=== PATIENT | male | born 1955 | race Caucasian/White ===

== ENCOUNTER → 2020-06-03 10:45 | Outpatient (BNV) | payer MEDICARE, MEDICAID, SELFPAY | PROVIDERS: PCP Internal Medicine; Visit Provider Internal Medicine | DX: D50.9 Iron deficiency anemia, unspecified (principal) | CPT/HCPCS: 99213; G2211 ==

== ENCOUNTER 2020-08-25 09:05 | Outpatient (REF) | payer MEDICARE, MEDICAID, SELFPAY ==
[2020-08-25 10:16] LABS: MANUAL DIFF FLAG NO
[2020-08-25 10:47] LABS: Basophils Absolute Auto 0.1 X10*3/uL (0.0-0.2); Basophils Percent Auto 0.6 % (0-2); Eosinophils Absolute Auto 0.6 X10*3/uL (0.0-0.4); Eosinophils Percent Auto 5.4 % (0-4); Hematocrit 38.4 % (42-52); Hemoglobin 12.7 g/dl (14.0-18.0); Imm Gran Abs Auto 0.06 X10*3/uL (0.00-0.03); Imm Gran Pct Auto 0.6 % (0.0-0.4); Lymphocytes Absolute Auto 3.7 X10*3/uL (1.2-4.9); Lymphocytes Percent Auto 34.3 % (20-40); Mean Corpuscular HGB Conc 33.1 g/dl (31.0-36.0); Mean Corpuscular Hemoglobin 30.5 pg (27.0-33.0); Mean Corpuscular Volume 92.3 fL (80-98); Mean Platelet Volume 9.5 fL (9.4-12.4); Monocytes Absolute Auto 0.8 X10*3/uL (0.1-1.2); Monocytes Percent Auto 7.2 % (2-11); Neutrophils Absolute Auto 5.7 X10*3/uL (2.0-8.3); Neutrophils Percent Auto 51.9 % (45-73); Platelet Count 295 X10*3/uL (160-400); Red Blood Count 4.16 X10*6/uL (4.60-5.80); Red Cell Distribution Width 12.6 % (11.0-16.0); White Blood Count 10.9 X10*3/uL (4.8-10.8)
[2020-08-25 11:08] LABS: Alanine Aminotransferase 21 U/L (0-40); Albumin Level 4.4 g/dL (3.5-5.0); Alkaline Phosphatase 94 U/L (39-117); Anion Gap 13 (12-20); Aspartate Amino Transferase 13 U/L (5-37); Bilirubin Total 0.6 mg/dL (0.0-1.0); Blood Urea Nitrogen 12 mg/dL (9-16); Calcium 8.9 mg/dL (8.4-10.2); Carbon Dioxide 28 mmol/L (22-29); Chloride 102 mmol/L (96-108); Cholesterol 247 mg/dL; Estimated Glomerular Filt Rate > 60; Glucose Fasting 123 mg/dL (60-99); HDL Cholesterol 31 mg/dL; LDL Cholesterol Calculated 149 mg/dl; Potassium 4.3 mmol/L (3.3-5.1); Sodium 139 mmol/L (135-145); Total Protein 6.7 g/dL (6.5-8.0); Triglycerides 335 mg/dL
== END 2020-08-25 09:06 | disposition home or self-care (01) ==
LOC: HO.LAB 09:05
PROVIDERS: PCP Internal Medicine; Visit Provider Internal Medicine
DX: E78.00 Pure hypercholesterolemia, unspecified (principal); E66.9 Obesity, unspecified
CPT/HCPCS: 36415; 80053; 80061; 85025

== ENCOUNTER 2020-09-04 10:41 | Outpatient (REF) | payer MEDICARE, MEDICAID, SELFPAY | END 2020-09-04 10:42 | disposition home or self-care (01) | LOC: HO.LAB 10:41 | PROVIDERS: Visit Provider Internal Medicine | DX: Z20.822 Contact with and (suspected) exposure to COVID-19 (principal) | CPT/HCPCS: 36415; C9803; U0003; U0005 ==

== ENCOUNTER 2020-09-18 10:03 | Outpatient (REF) | payer MEDICARE, MEDICAID, SELFPAY | END 2020-09-18 10:04 | disposition home or self-care (01) | LOC: HO.LAB 10:03 | PROVIDERS: Visit Provider Internal Medicine | DX: Z20.822 Contact with and (suspected) exposure to COVID-19 (principal) | CPT/HCPCS: 36415; C9803; U0003; U0005 ==

== ENCOUNTER 2021-09-08 09:08 | Outpatient (REF) | payer MEDICARE, MEDICAID, OTHER, SELFPAY ==
[2021-09-08 09:29] LABS: MANUAL DIFF FLAG NO
[2021-09-08 10:12] LABS: Basophils Absolute Auto 0.1 X10*3/uL (0.0-0.2); Basophils Percent Auto 0.5 % (0-2); Eosinophils Absolute Auto 0.5 X10*3/uL (0.0-0.4); Hematocrit 38.7 % (42.0-52.0); Hemoglobin 12.5 g/dl (14.0-18.0); Imm Gran Abs Auto 0.07 X10*3/uL (0.00-0.03); Imm Gran Pct Auto 0.6 % (0.0-0.4); Lymphocytes Absolute Auto 4.1 X10*3/uL (1.2-4.9); Lymphocytes Percent Auto 34.5 % (20-40); Mean Corpuscular HGB Conc 32.3 g/dl (31.0-36.0); Mean Corpuscular Hemoglobin 30.2 pg (27.0-33.0); Mean Corpuscular Volume 93.5 fL (80.0-98.0); Mean Platelet Volume 9.4 fL (9.4-12.4); Monocytes Absolute Auto 0.9 X10*3/uL (0.1-1.2); Monocytes Percent Auto 7.3 % (2-11); Neutrophils Absolute Auto 6.3 x10*3/uL (2.0-8.3); Neutrophils Percent Auto 53.1 % (45-73); Platelet Count 293 X10*3/uL (160-400); Red Blood Count 4.14 X10*6/uL (4.60-5.80); Red Cell Distribution Width 12.9 % (11.0-16.0); White Blood Count 11.9 X10*3/uL (4.8-10.8)
[2021-09-08 10:41] LABS: Alanine Aminotransferase 17 U/L (0-40); Albumin Level 4.1 g/dL (3.5-5.0); Alkaline Phosphatase 92 U/L (39-117); Anion Gap 14 (12-20); Aspartate Amino Transferase 12 U/L (5-37); Bilirubin Total 0.4 mg/dL (0.0-1.0); Blood Urea Nitrogen 12 mg/dL (9-16); Calcium 9.2 mg/dL (8.4-10.2); Carbon Dioxide 27 mmol/L (22-29); Chloride 103 mmol/L (96-108); Estimated Glomerular Filt Rate > 60; Glucose Random 126 mg/dL (60-115); Potassium 4.6 mmol/L (3.3-5.1); Sodium 139 mmol/L (135-145); Total Protein 6.6 g/dL (6.5-8.0)
== END 2021-09-08 09:09 | disposition home or self-care (01) ==
LOC: HO.LAB 09:08
PROVIDERS: PCP Internal Medicine; Visit Provider Internal Medicine
DX: D64.9 Anemia, unspecified (principal)
CPT/HCPCS: 36415; 80053; 85025

== ENCOUNTER 2021-09-24 09:10 | Outpatient (REF) | payer MEDICARE, MEDICAID, SELFPAY ==
--- NOTE | ~2021-09-24 | XR_ITS ---
EXAMINATION: XR KNEE, RIGHT CLINICAL INFORMATION: Pain. COMPARISON: Prior radiographs, most recently 07/12/2016. TECHNIQUE: AP and lateral views of the right knee. FINDINGS: Prosthetic components of the right total knee arthroplasty are appropriately aligned without periprosthetic fracture or lucency. No component migration. No joint effusion. XR/XR knee RT 2V IMPRESSION: Appropriate alignment of the right total knee arthroplasty without evidence of complications. EXAMINATION: XR KNEE, LEFT CLINICAL INFORMATION: Pain. COMPARISON: Prior radiographs, most recently 07/12/2016. TECHNIQUE: AP and lateral views of the left knee. FINDINGS: Prosthetic components of the left total knee arthroplasty are appropriately aligned without periprosthetic fracture or abnormal lucency. No component migration. No joint effusion. IMPRESSION: Appropriate alignment of the left total knee arthroplasty without evidence of complications.
--- NOTE | ~2021-09-24 | XR_ITS ---
EXAMINATION: XR KNEE, RIGHT CLINICAL INFORMATION: Pain. COMPARISON: Prior radiographs, most recently 07/12/2016. TECHNIQUE: AP and lateral views of the right knee. FINDINGS: Prosthetic components of the right total knee arthroplasty are appropriately aligned without periprosthetic fracture or lucency. No component migration. No joint effusion. XR/XR knee LT 2V IMPRESSION: Appropriate alignment of the right total knee arthroplasty without evidence of complications. EXAMINATION: XR KNEE, LEFT CLINICAL INFORMATION: Pain. COMPARISON: Prior radiographs, most recently 07/12/2016. TECHNIQUE: AP and lateral views of the left knee. FINDINGS: Prosthetic components of the left total knee arthroplasty are appropriately aligned without periprosthetic fracture or abnormal lucency. No component migration. No joint effusion. IMPRESSION: Appropriate alignment of the left total knee arthroplasty without evidence of complications.
[2021-09-24 10:50] LABS: Alanine Aminotransferase 18 U/L (0-40); Albumin Level 4.4 g/dL (3.5-5.0); Alkaline Phosphatase 105 U/L (39-117); Anion Gap 14 (12-20); Aspartate Amino Transferase 12 U/L (5-37); Bilirubin Total 0.7 mg/dL (0.0-1.0); Blood Urea Nitrogen 12 mg/dL (9-16); Calcium 9.7 mg/dL (8.4-10.2); Carbon Dioxide 28 mmol/L (22-29); Chloride 100 mmol/L (96-108); Cholesterol 253 mg/dL; Estimated Glomerular Filt Rate > 60; Glucose Fasting 127 mg/dL (60-99); HDL Cholesterol 34 mg/dL; LDL Cholesterol Calculated 172 mg/dl; Potassium 4.3 mmol/L (3.3-5.1); Sodium 138 mmol/L (135-145); Total Protein 7.3 g/dL (6.5-8.0); Triglycerides 235 mg/dL
== END 2021-09-24 09:11 | disposition home or self-care (01) ==
LOC: HO.LAB 09:10
PROVIDERS: PCP Internal Medicine; Visit Provider Internal Medicine
DX: Z00.00 Encounter for general adult medical examination without abnormal findings (principal); M25.561 Pain in right knee; M25.562 Pain in left knee; E78.5 Hyperlipidemia, unspecified
CPT/HCPCS: 36415; 73560; 80053; 80061

== ENCOUNTER 2021-10-20 12:51 | Outpatient (REF) | payer MEDICARE, MEDICAID, SELFPAY ==
--- NOTE | 2021-10-20 16:25 | MHC.AU.AHA ---
Adult Audiological Evaluation Date of Visit: 10/20/21 Inside Sales Associate Used: Argentine- By Phone Reason for Appointment: Yogesh was seen for an audiological evaluation to monitor the status of his hearing loss. He reports a decrease in hearing abilities bilaterally. He states he has lost one of his hearing aids and does not wear the other device any more. Yogesh reports bilateral itchiness sensation in his ears, but did not experience any itchiness while wearing hearing devices in the past. He reports bilateral tinnitus as well. No significant changes in health history or medication history were reported. Previous Hearing Test Results: [facility] [place]- Normal hearing threshold through 500 Hz sloping to a profound sensorineural hearing loss thereafter. Ear History: Family History of Hearing Loss?: Yes: Sister Bothersome Tinnitus/Ringing/Noises in Ears: Both Ears Ear used on the phone: Right Ear History of occupational noise exposure?: Yes: Jose Medical History: Medical History: Asthma, anxiety, depression, insomnia Allergies: NKA Medication List: albuterol sulfate, escitalopram, patient reports that he takes a sleep aid but doesn't remember the name Hearing Instrument History- Right Ear: Show Host Or Hostess: [employer] Model: Playthe.net0-M Excellence EngineeringE Serial Number: [id number] Battery Size: Rechargeable Repair Warranty: 10/30/18 Loss and Damage Warranty: 10/30/18 Dispensed By: [facility] Date of Fittin08/30/2016 Hearing Instrument History- Left Ear: Show Host Or Hostess: [employer] Model: Playthe.net0-M Excellence EngineeringE Serial Number: [id number] Battery Size: Rechargeable Warranty: 10/30/18 Loss and Damage Warranty: 10/30/18 Dispensed By: [facility] Date of Fittin08/30/2016 Otoscopy: Right Ear: Unremarkable Left Ear: Unremarkable Tympanometry: Tympanometry performed due to: To assess integrity of the middle ear system Right Ear: Normal Middle Ear System (Type A) Left Ear: Normal Middle Ear System (Type A) Hearing Evaluation: Transducer(s) Used: Insert Earphones, Bone Conduction Method: Conventional Audiometry Stimuli Used: Pure Tones Right Ear: Description of Hearing: Moderate sloping to a profound sensorineural hearing loss. Left Ear: Description of Hearing: Moderate sloping to a profound sensorineural hearing loss. A 15 dB asymmetry is noted at 3000 Hz, left ear worse. Speech Recognition Threshold (SRT): Method Used: Recorded Lists Stimuli Used: Argentine Trisyllable Words Right Ear: 75 dB HL Left Ear: 75 dB HL Word Discrimination: Method: Recorded Lists Word Lists Used: Lista Bisil?bica (Argentine) Right Ear: 72% at 85 dB HL Left Ear: 72% at 85 dB HL Comparison: Compared to the most recent evaluation: Thresholds have decreased by 20-30 dB HL in the low frequencies when compared to the 2017 evaluation. Recommendations: Audiological re-evaluation in one year. Due to the degree and configuration of his hearing loss, and because patient lost a hearing aid, it is recommended that Yogesh obtains new binaural hearing devices. Additionally, new technological advances in hearing devices will better support Yogesh's hearing needs. Discussed hearing aid styles, manufacturers, and features with the patient. Patient is interested in Evan ITC rechargeable devices in the color pink. Earmold impressions were taken without incident. Medical clearance from a physician is required before fitting. Hearing Aid Fitting will be scheduled when all materials arrive. Diagnosis: Primary Diagnosis: H90.3 Bilateral Sensorineural Hearing Loss Services Performed: Comprehensive Audiological Evaluation (CPT 27593) Tympanometry (CPT 70567) Signature: Student/Clinical Fellow: Yes: Sridevi Yuen B.A., [facility] Senior Environmental Practice Leader I have reviewed/agreed with student/fellow documentation: Yes Provider: Leonard Deng, [facility]
--- NOTE | 2021-10-20 16:26 | MHC.AU.HAS ---
Hearing Aid Evaluation Date of Visit: 10/20/21 Blow Pit Helper Used: Mohawk- By Phone Historical Information: Description of Hearing: Moderate sloping to profound sensorineural hearing loss bilaterally. Current personal amplification information, if applicable: Phonak Bolero V50-M BTEs- LOST ONE Summary: Due to the degree and configuration of Yogesh's hearing loss, along with the new and advanced hearing technology available now, it was recommended Yogesh pursues new bilateral hearing devices. Additionally, Yogesh had lost one of his previous devices, which are now out of warranty. Discussed the different hearing aid styles, manufacturers, and features available now. Yogesh stated he wanted an in-the-ear device that had rechargeable features. Earmold impressions were taken without incident. [employer] AI 1600 ITC-R hearing aids in the color pink were agreed upon and will be ordered pending medical clearance. Hearing Aid Prescription: Based on the individual?s shared listening needs, communication environments, dexterity, desire for connectivity, and personal preferences, the following prescription for amplification has been made: Right ear: Type Rolling Machine Operator: [email or web address] Model: Bolero V50-M BTE Battery Size: Rechargeable Color: [place] Left ear: Left ear prescription to be same as Right Hearing Aid above: Type Rolling Machine Operator: Evan Model: Bolero V50-M BTE Battery Size: Rechargeable Color: pink Plan of Care: Earmold Impressions Taken and in hold drawer. Medical Clearance to be requested from PCP/ENT. Hearing aids will be ordered once MD clearance is received. Hearing Instrument Fitting to be scheduled when materials arrive. Primary Diagnosis: H90.3 Bilateral Sensorineural Hearing Loss Signature: Student/Clinical Fellow: Yes: Sridevi Yuen B.A., [facility] Nurse I have reviewed/agreed with student/fellow documentation: Yes Provider: Leonard Deng, [facility]
--- NOTE | 2021-10-21 09:27 | MHC.AU.MED ---
Medical Clearance for Hearing Instrumentation Date: 10/21/21 Patient Name: Owen Singer Date of : 1955 Referring Provider: Yulia Montoya MD We have seen your patient on 10/20/21 and have determined that they are a candidate for amplification (See accompanying report). Specifically, they would benefit from: Hearing aid use in both ears There is a statute that addresses Medical Evaluation Requirements prior to fitting a patient with a hearing aid. According to [place] statute 265 CMR:6.03(1), (a) General. Except as provided in 265 CMR 6.03(1)(b), a hearing therapist shall not sell a hearing aid unless the prospective user has presented to the hearing therapist a written statement signed by a licensed physician that states that the patient's hearing loss has been medically evaluated and the patient may be considered a candidate for a hearing aid. The medical evaluation must have taken place within the preceding six months. Please note: Due to the [place] Statute referenced above, we cannot accept a signature other than that of a licensed physician. DELIVERY TRUCK DRIVER HEAVY and PA signatures cannot be accepted. I am in agreement with the above recommendation. There is no medical contraindication for hearing instrumentation. Physician Signature Date Physician Name (Printed)
== END 2021-10-20 12:52 | disposition home or self-care (01) ==
LOC: HO.SH 12:51
PROVIDERS: Visit Provider Internal Medicine
DX: Z01.118 Encounter for examination of ears and hearing with other abnormal findings (principal); Z46.1 Encounter for fitting and adjustment of hearing aid; H90.3 Sensorineural hearing loss, bilateral
CPT/HCPCS: 92557; 92567; 92591; V5275

== ENCOUNTER 2021-11-18 10:21 | Outpatient (REF) | payer MEDICARE, MEDICAID, SELFPAY | END 2021-11-18 10:22 | disposition home or self-care (01) | LOC: HO.HAP 10:21 | PROVIDERS: Visit Provider Internal Medicine | DX: Z46.1 Encounter for fitting and adjustment of hearing aid (principal); H90.3 Sensorineural hearing loss, bilateral | CPT/HCPCS: V5011; V5020; V5160; V5260 ==

== ENCOUNTER 2021-12-08 11:26 | Outpatient (REF) | payer MEDICARE, MEDICAID, SELFPAY ==
--- NOTE | 2021-12-08 12:57 | MHC.AU.HFU ---
Hearing Instrument Follow-Up- Binaural Date of Visit: 12/08/21 Career Coach Used: Bengali- By Phone Right Ear: Javascript Developer: [email or web address] Model: Evolv AI 1600 ITC-R Serial Number: [id number] Repair Warranty: 11/29/2024 Loss and Damage Warranty: 11/29/2024 Battery Size: Rechargeable Color: Fossil Type of Wax Guard: Hear Clear Dispensed By: [facility] Date of Fittin11/18/21 Left Ear: Javascript Developer: Evan Model: Evolv AI 1600 ITC-R Serial Number: [id number] Repair Warranty: 11/29/2024 Loss and Damage Warranty: 11/29/2024 Battery Size: Rechargeable Color: pink Type of Wax Guard: Hear Clear Dispensed By: [facility] Date of Fittin11/18/21 Follow-Up Summary: Hearing aid follow-up: Patient reports that he has not been happy with the new hearing aids and doesn't like the sound quality. He feels he preferred his previous BTE hearing aids and would like to go back to that. Going to order a pair of Simbionixv AI 1600 ANJALI-R aids in the color Bronze with custom earmolds using impressions on file and size 2 receivers. Current hearing aids and director utilization management returned for credit today. Recommendations: Recommendations: Patient will be contacted when materials have arrived. Diagnosis Code(s): Primary Diagnosis: H90.3 Bilateral Sensorineural Hearing Loss Signature: Provider: Leonard Deng, CCC-A
== END 2021-12-08 11:27 | disposition home or self-care (01) ==
LOC: HO.HAP 11:26
PROVIDERS: Visit Provider Internal Medicine
DX: Z13.89 Encounter for screening for other disorder (principal)

== ENCOUNTER 2021-12-25 12:18 | Outpatient (REF) | payer MEDICARE, MEDICAID, SELFPAY ==
--- NOTE | 2021-12-30 09:17 | MHC.AU.HFA ---
Hearing Instrument Fitting- Adult- Binaural Date of Visit: 12/25/21 Hearing Instruments Dispensed: Right Ear: Mortgage Clerk: [employer] Model: mobilePeoplev AI 1600 ANJALI-R Serial Number: [id number] Repair Warranty: 03/16/2025 Loss and Damage Warranty: 03/16/2025 Battery Size: Rechargeable Color: Bronze Type of Mold: Absolute Power #[id number] Warranty 01/14/2024 Type of Wax Guard: Hear Clear Left Ear: Mortgage Clerk: [employer] Model: mobilePeoplev AI 1600 ANJALI-R Serial Number: [id number] Repair Warranty: 03/16/2025 Loss and Damage Warranty: 03/16/2025 Battery Size: Rechargeable Color: Bronze Type of Mold: Absolute Power #[id number] Warranty 01/14/2024 Type of Wax Guard: Hear Clear Summary of Fitting: Patient previously returned the ITC style instruments. He was fit with with ANJALI style instruments. Feedback canceller run. Verifit performed and levels adjusted to better reach targets. Patient felt they were a little too loud- lowered 2 steps. Patient was pleased with the sound and fit of the instruments. Hearing aid care and maintenance were discussed and practiced. He does not want the hearing aids paired to his phone at this time. Recommendations: Patient will call for follow-up if needed. Diagnosis Code(s): Primary Diagnosis: H90.3 Bilateral Sensorineural Hearing Loss Signature: Provider: Leonard Cavazos, CCC-A
== END 2021-12-25 12:19 | disposition home or self-care (01) ==
LOC: HO.HAP 12:18
PROVIDERS: Visit Provider Internal Medicine
DX: Z46.1 Encounter for fitting and adjustment of hearing aid (principal); H90.3 Sensorineural hearing loss, bilateral
CPT/HCPCS: V5264

== ENCOUNTER 2022-03-19 06:10 | Day surgery (SDC) | payer MEDICARE, MEDICAID, SELFPAY ==
[2022-03-16 13:32] VITALS: BMI 34.5
--- NOTE | 2022-03-18 12:52 | P.CONAN_ITS ---
Documented by User: Mamie Tee NP 03/18/22 12:53 HPI - Anesthesia Eval Consult details Narrative: 66yo M for Colonoscopy PMFSH Active Problems Active Problems: All Active Problems (Updated 12/24/21 @ 09:52 by Yulia Montoya MD) Anemia (Chronic) Conjunctivitis (Acute) Mixed hyperlipidemia (Acute) Moderate persistent asthma (Acute) ARELIS (generalized anxiety disorder) (Acute) Knee pain (Acute) Mild persistent asthma, uncomplicated (Acute) Mild recurrent major depression (Acute) Hearing loss (Acute) Physical exam (Acute) Obese (Acute) Impaired glucose tolerance (Acute) Insomnia (Acute) Past Medical History Medical History ARELIS (generalized anxiety disorder) Hearing loss Impaired glucose tolerance Insomnia Knee pain Mild persistent asthma, uncomplicated Mild recurrent major depression Obese Physical exam Pure hypercholesterolemia Family History Family History Father Pancreatic cancer Mother Chronic mental illness Diabetes Hypertension Stroke Sister Cancer Family/Other Chronic mental illness Surgical History Surgical History H/O colonoscopy History of knee replacement procedure of left knee History of knee replacement procedure of right knee Social History Social History Household Members: Children Housing: [facility] Are you a primary child care to a significant other at home: No Do you presently have visiting nurse or other home services: No Alcohol intake: former Patient Tobacco Use Status: Current everyday Tobacco user Tobacco use type: Cigarette Cigarette Packs Per Day: 1 Cigarettes Per Day: 20 e-Cigarette/Vaping Use: Never Used Second Hand Smoke Exposure: No Are you DNR?: No Advance Directives: No Advance Directives Information Provided: Yes Recently lost weight without trying: No Nutrition Risks: No Nutritional Risk service: No Current occupational status: disabled Cognitive needs: No Hearing needs: No Vision needs: No Meds Allergies Allergy/AdvReac Type Severity Reaction Status Date / Time No Known Allergies Allergy Verified 12/24/21 09:49 [No Known Allergies*] Exam Exam Date and Time: March 18, 2022 1252 Height,Weight and Vital Signs: Height 5 ft 7.5 in Weight 101.605 kg Assessment and Plan Assessment Anesthesia Assessment: Chart Reviewed Documented by User: Angela Gallagher MD 03/19/22 07:38 PMFSH Past Medical History Medical History ARELIS (generalized anxiety disorder) Hearing loss Impaired glucose tolerance Insomnia Knee pain Mild persistent asthma, uncomplicated Mild recurrent major depression Obese Physical exam Pure hypercholesterolemia Family History Family History Father Pancreatic cancer Mother Chronic mental illness Diabetes Hypertension Stroke Sister Cancer Family/Other Chronic mental illness Surgical History Surgical History H/O colonoscopy History of knee replacement procedure of left knee History of knee replacement procedure of right knee History of Problems with Anesthesia: No Social History Social History Household Members: Children [facility] Are you a primary child care to a significant other at home: No Do you presently have visiting nurse or other home services: No Alcohol intake: former Patient Tobacco Use Status: Current everyday Tobacco user Tobacco use type: Cigarette Cigarette Packs Per Day: 1 Cigarettes Per Day: 20 e-Cigarette/Vaping Use: Never Used Second Hand Smoke Exposure: No Are you DNR?: No Advance Directives: No Advance Directives Information Provided: Yes Recently lost weight without trying: No Nutrition Risks: No Nutritional Risk service: No Current occupational status: disabled Cognitive needs: No Hearing needs: No Vision needs: No Meds Allergies Allergy/AdvReac Type Severity Reaction Status Date / Time No Known Allergies Allergy Verified 12/24/21 09:49 [No Known Allergies*] Exam Airway Mallampati Class: III (Edentulous) TM Dist: >3cm Neck ROM: Full Denture: Upper and Lower Loose/Missing/Broken Teeth: Yes, Upper and Lower Heart: RRR Lungs: CTA Assessment and Plan Assessment Anesthesia Assessment: Anesthesia Plan Discussed Final Anesthetic Review History of Problems with Anesthesia: No NPO: Yes ASA Class: II Final Preanesthetic Review: Meds/Allgs Chart Reviewed, Consent Obtained/Reviewed and Anes Risks/Benef Reviewed Patient Risk: Low Procedure Risk: Low Anesthetic Plan Anesthetic Plan: MAC: Disposition: Standard PACU
[2022-03-19 06:23] VITALS: BP 156/74; PULSE 83; RESP 18; TEMP 36.3; O2SAT 95
[2022-03-19] MEDS: Lactated Ringers 1,000 ML 100 ML IVCONT (06:40)
[2022-03-19] MEDS: Albuterol Sulfate (0.083%) 2.5 MG/3 ML VIAL.NEB INHALE (07:38)
[2022-03-19 07:41] VITALS: PULSE 88; RESP 18; O2SAT 99
[2022-03-19 08:33] VITALS: BP 92/42; PULSE 84; RESP 20; TEMP 36.5; O2SAT 98
--- NOTE | 2022-03-19 08:35 | P.BOP_ITS ---
Brief Operative Note Date of Service: 03/19/22 Pre-op diagnosis: Screening Post-op diagnosis: other (Colon polyp) Procedure: Colonoscopy to the cecum with cold snare polypectomy at 40cm(specimen not recovered) Surgeon: Joaquin Day Anesthesia: MAC Was an Pearl Peller used for this Procedure?: No Estimated blood loss (mL): 2.0 Pathology: none sent Condition: stable Disposition: PACU
[2022-03-19 08:48] VITALS: BP 92/42; PULSE 101; RESP 20; O2SAT 95
[2022-03-19 08:53] VITALS: BP 110/66; PULSE 90; RESP 20; TEMP 36.5; O2SAT 96
--- NOTE | 2022-03-19 21:49 | OP_ITS ---
SURGEON: Joaquin Day MD INDICATIONS: The patient presents for followup of personal history of tubular adenoma of the colon and colorectal cancer screening. Full consent has been obtained from him for this, including risks of bleeding and perforation. PREOPERATIVE DIAGNOSIS: Colorectal cancer screening and personal history of tubular adenoma of the colon. POSTOPERATIVE DIAGNOSIS: Colorectal cancer screening and personal history of tubular adenoma of the colon, colon polyp, diverticulosis, internal hemorrhoids, limited colon prep. PROCEDURE PERFORMED: Colonoscopy to the cecum with cold snare polypectomy x1. ESTIMATED BLOOD LOSS: COMPLICATIONS: ANESTHESIA: Monitored anesthesia care. ASSISTANTS: SPECIMENS: DESCRIPTION OF PROCEDURE: The patient was placed in the left lateral decubitus position. The digital rectal exam revealed no abnormalities. The [employer] video pediatric colonoscope was entered into the rectum and advanced easily to the cecum. Once in the cecum, I did identify a cecal pouch with appendiceal orifice and a normal-appearing ileocecal valve. The great majority of the cecum was well visualized and appeared normal. Although there were some areas that had stool that could not be completely removed. However, the majority of the cecum was well visualized and appeared normal. The ileocecal valve appeared normal the scope was slowly withdrawn assessing all mucosal surfaces carefully. Preparation for the most part was good, but there were some areas of liquid and semi-solid stool, particularly in the left colon. There was no sign of any colitis nor angiodysplasia. The only polyp I visualized was approximately 5 or 6 mm in size at 40 cm and was removed by cold snare polypectomy, but not recovered. The polypectomy site appeared clean, without any sign of residual polyp nor significant bleeding. In the rectum, scope was retroflexed visualizing internal hemorrhoids, but no other pathology. The scope was straightened and withdrawn from the patient. He tolerated the procedure well and was returned to the recovery area in stable condition. IMPRESSION: 1. Colon polyp. 2. Diverticulosis. 3. Internal hemorrhoids. PLAN: Given the somewhat limited prep, I would recommend a repeat colonoscopy in 3 years for surveillance. He was advised not to use any aspirin or NSAIDs for 1 week. He will otherwise see me on a p.r.n. basis. This has been discussed with his daughter, Lita. MD RAÚL Castro/FELICIANOL / [id number]
== END 2022-03-19 09:45 | disposition home or self-care (01) ==
PROVIDERS: PCP Internal Medicine; Visit Provider Internal Medicine
PROC: 0DJD8ZZ Inspection of Lower Intestinal Tract, Via Natural or Artificial Opening Endoscopic (ICD-10-PCS; CPT 45378; principal; 2022-03-19 07:30)
DX: Z12.11 Encounter for screening for malignant neoplasm of colon (principal); Z86.010 Personal history of colon polyps; K63.5 Polyp of colon; K57.30 Diverticulosis of large intestine without perforation or abscess without bleeding; K64.8 Other hemorrhoids; J45.30 Mild persistent asthma, uncomplicated; F41.1 Generalized anxiety disorder; Z79.899 Other long term (current) drug therapy; F17.210 Nicotine dependence, cigarettes, uncomplicated
CPT/HCPCS: 45385

== ENCOUNTER 2022-05-04 08:08 | Outpatient (REF) | payer MEDICARE, MEDICAID, SELFPAY ==
[2022-05-04 10:10] LABS: Alanine Aminotransferase 15 U/L (0-40); Albumin Level 4.4 g/dL (3.5-5.0); Alkaline Phosphatase 121 U/L (39-117); Anion Gap 17 (12-20); Aspartate Amino Transferase 12 U/L (5-37); Bilirubin Total 0.6 mg/dL (0.0-1.0); Blood Urea Nitrogen 10 mg/dL (9-16); Calcium 9.1 mg/dL (8.4-10.2); Carbon Dioxide 28 mmol/L (22-29); Chloride 101 mmol/L (96-108); Cholesterol 152 mg/dL; Estimated Glomerular Filt Rate > 60; Glucose Fasting 136 mg/dL (60-99); HDL Cholesterol 32 mg/dL; LDL Cholesterol Calculated 91 mg/dl; Potassium 4.6 mmol/L (3.3-5.1); Sodium 141 mmol/L (135-145); Total Protein 6.9 g/dL (6.5-8.0); Triglycerides 147 mg/dL
== END 2022-05-04 08:09 | disposition home or self-care (01) ==
LOC: HO.LAB 08:08
PROVIDERS: PCP Internal Medicine; Visit Provider Internal Medicine
DX: E78.2 Mixed hyperlipidemia (principal)
CPT/HCPCS: 36415; 80053; 80061

== ENCOUNTER 2022-05-20 18:33 | Emergency (ER) | payer MEDICARE, MEDICAID, SELFPAY ==
--- NOTE | ~2022-05-20 | XR_ITS ---
EXAMINATION: LEFT HAND AND WRIST CLINICAL INFORMATION: Fall with pain and swelling third/fourth digits COMPARISON: None TECHNIQUE: 4 views of the hand and wrist FINDINGS: There is a spiral fracture through the fourth metacarpal. No joint space involvement appears to be present. There is minimal displacement or angulation. Mild soft tissue swelling around the PIP joints of the third and fourth digits without fracture or arthritic change. XR/XR hand wrist LT IMPRESSION: Spiral fracture fourth metacarpal without joint space involvement.
[2022-05-20 18:36] VITALS: BP 152/89; PULSE 97; RESP 18; TEMP 36.7; O2SAT 99; BMI 32.6
--- OUTSIDE RECORDS SUMMARY | 2022-05-20 19:03 | XMS_ITS ---
:1955 Author Organization [facility] Address [address] [place] [address] Care Team Providers Name Role Phone Joaquin Day Unavailable Unavailable PROBLEMS Type Condition ICD9-CM Code [id number] Onset Condition SNOMED Code Code Dates Status Problem Encounter for Z12.11 Active 501139 004 screening for malignant neoplasm of colon Problem Diverticulosis of K57.30 Active 73 1001217 colon Problem Encounter for other Z01.818 Active [id number] preprocedural examination Problem History of Z86.010 Active [id number] adenomatous polyp of colon ALLERGIES No Known Allergies ENCOUNTERS Encounter Location Date Diagnosis [facility] [address] [place] [address] Feb, Colon polyp K63 .5 ; ANA Lucero [id number] Diverticul osis of colon K57.30 and Inter nal hemorrhoids K64. [address] [place] [address] Jan, [facility] [address] [place] [address] [place] [address] Dec, [facility] [address] [place] [address] Dec, Encounte r for screening for [facility] [address] ANA Lucero malignant neoplasm of colon [id number] Z12.11 ; History of adenomatous poly p of colon Z86.010 and Enco unter for other preprocedu ral examination Z01. 818 [facility] [address] [place] [address] Dec, ANA Lucero [id number] [address] Nov, [facility] [address] [place] [address] Nov, Abnormal CT scan, colon [facility] [address] ANA Lucero 793.4 [phone] IMMUNIZATIONS No Known Immunizations SOCIAL HISTORY Never Assessed REASON FOR REFERRAL FUNCTIONAL STATUS PLAN OF CARE Activity Details Future/Pending Procedure COLONOSCOPY 20220119 Future/Pending Procedure COLONOSCOPY 20141219 VITAL SIGNS Weight 224 lbs 2022-01-19 Weight 214 lbs 2014-12-19 Height 67.5 in 2022-01-19 Height 67.5 in 2014-12-19 BMI 34.56 kg/m2 2022-01-19 BMI 33.02 kg/m2 2014-12-19 Temperature 97.7 degrees Fahrenheit 2022-01-19 Blood pressure systolic 000 mm Hg 2022-01-19 Blood pressure diastolic 00 mm Hg 2022-01-19 MEDICATIONS Medication Instructions Dosage Frequency Start End Duration Statu s Date Date MiraLax (colon Orally begin at 1 238Gm Dec, 1 day A ctive prep) 17 5:00 p.m. the bottle mixed 2 GM/SCOOP day before the with procedure Gatorade or Crystal Light Dulcolax (colon Orally two take at 3:00 Dec, 1 day Active prep) 5 MG tablets twice a p.m and 2021 day for one day 7:00p.m. Atorvastatin 90 Active Calcium 20 MG Escitalopram 90 Active Oxalate 5 MG Albuterol 50 Active Sulfate HFA 108 (90 Base) MCG/ACT PROCEDURES Procedure Date Ordered Result Body Site [facility]IC[facility] January 19, 2022 LESION REMOVAL COLONOSCOPY Mar 19, 2022 RESULTS Name Result Date Reference Range GI BIOPSY 2014-12-26 G.I. BIOPSY REASON FOR VISIT hx polyps,screening, 01-19-2022 office charge, needs script for prep, recall screening, Patient presents today for a screening colon, abnormal CT scan, send over colyte prep, ABNORMAL CT SCAN Insurance Providers [facility] Health Member Patient Patient Patient Patient Patient Subscriber Subscriber Subscriber Group Insurance Plan Plan Plan Plan ID Relationship Address Phone Name Date of ID Name Date of No Type Insurance Insurance Insurance Coverage to Subscriber Address Phone Name Dates MEDICAID [phone] MEDICAID self IVA [id number] OF [facility] [id number] OF [facility] [address] [facility] [place] [id number] MEDICARE [address] MEDICARE self IVA [id number] OF [place] [id number] [address] OF [facility] [place] [id number] [employer] [phone] [employer] self IVA [id number] Health [id number] [facility] Plan [place]RU[place]AT [id number] [employer] [phone] [employer] self IVA [id number] Health [id number] [facility] access hospital [place] [id number]
--- NOTE | 2022-05-20 19:40 | ED.EXTPRO ---
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 He states that he was walking down the stairs, his fingers got caught on the bracket that secures the railing to the wall while he continued walking down. He has swelling to the left 3rd and 4th digit, and has subjective pain to the wrist without deformity. Denies any numbness or tingling. Decreased flexion of the digits is present. Related Data Previous Rx's Medication Instructions Recorded albuterol sulfate 90 mcg/actuation 1 puff PO Q6H PRN Wheezing 30 days 05/10/22 aerosol inhaler #6.7 grams atorvastatin 40 mg tablet 40 mg PO BEDTIME 90 days #90 tabs 05/10/22 metformin 500 mg tablet 500 mg PO DAILY 90 days #90 tabs 05/10/22 blood sugar diagnostic (FreeStyle #50 ea 05/12/22 Lite Strips) lancets 28 gauge (FreeStyle #100 ea 05/12/22 Lancets) blood-glucose meter (FreeStyle #1 ea 05/14/22 Lite Meter kit) Allergies Allergy/AdvReac Type Severity Reaction Status Date / Time No Known Allergies Allergy Verified 05/10/22 08:33 [No Known Allergies*] Review of Systems Review of Systems: Musculoskeletal: Positive hand and wrist pain as noted in HPI Yes all other systems are reviewed and are negative PMFSH Past Medical History Attestation statement: The following information was validated with the patient. Source: old records reviewed Medical History ARELIS (generalized anxiety disorder) Hearing loss Insomnia Knee pain Mild persistent asthma, uncomplicated Mild recurrent major depression Obese Physical exam Pure hypercholesterolemia Surgical History H/O colonoscopy History of knee replacement procedure of left knee History of knee replacement procedure of right knee Family History Family History Father Pancreatic cancer Mother Chronic mental illness Diabetes Hypertension Stroke Sister Cancer Family/Other Chronic mental illness Social History Social History Household Members: Children [facility] Are you a primary rehab care assistant to a significant other at home: No Do you presently have visiting nurse or other home services: No Alcohol intake: former Patient Tobacco Use Status: Current everyday Tobacco user Tobacco use type: Cigarette Cigarette Packs Per Day: 1 Cigarettes Per Day: 20 Smoked in Last 30 Days: Yes e-Cigarette/Vaping Use: Never Used Second Hand Smoke Exposure: No Use of substances other than those prescribed or required for medical reasons: No Advance Directives: No Advance Directives Information Provided: No service: No Current occupational status: disabled Cognitive needs: No Hearing needs: No Vision needs: No Physical Exam Vital Signs: Vital Signs: Last Vital Signs Temp 98.0 F 05/20/22 18:36 Pulse 97 05/20/22 18:36 Resp 18 05/20/22 18:36 BP 152/89 H 05/20/22 18:36 Pulse Ox 99 05/20/22 18:36 O2 Del Method 05/20/22 18:36 BMI result Body Mass Index 32.6 Appearance: Alert.?Oriented to person, place and time. No acute distress.?Normal affect.?? Neck: Normal inspection.? Neck supple.?? CVS: Heart sounds normal. Normal heart rate and rhythm.? Pulses normal.?? Respiratory: No respiratory distress.? Lung sounds clear to auscultation bilaterally?? Abdomen: Soft and non-tender. Skin: Skin warm and dry.? Normal skin color.? Extremities: No lower extremity edema.? Full range of motion to left wrist present, 2+ radial pulse palpable bilaterally. Localized swelling ecchymosis over the 3rd and 4th digit/carpals with point tenderness. Neuro: Moves all extremities spontaneously. Sensation intact bilaterally. Ambulates with normal steady gait. Course Course Course Narrative: Patient is a 66-year-old male presents emergency department for evaluation of traumatic left hand pain. Patient is right-hand dominant. Full range of motion present to the wrist, decreased flexion noted to the 3rd and 4th digits with point tenderness and swelling. Extremity is neurovascularly intact distally. XR reveals a spiral fracture through the 4th metacarpal with minimal displacement/angulation, without joint space involvement, digits without acute fracture. Discussed these findings with patient. Placed in ulnar gutter splint. Discussed rest, ice, acetaminophen/ibuprofen, elevation of the arm, outpatient follow-up with Orthopedics. All questions answered. Patient discharged home in stable condition. MDM - Extremity (Nontraumatic) Imaging Data XR hand: Radiologist's impression: FINDINGS: There is a spiral fracture through the fourth metacarpal. No joint space involvement appears to be present. There is minimal displacement or angulation. Mild soft tissue swelling around the PIP joints of the third and fourth digits without fracture or arthritic change.? XR/XR hand wrist LT IMPRESSION: Spiral fracture fourth metacarpal without joint space involvement. Discharge Plan Discharge Clinical Impression: Fracture of hand Fracture, metacarpal shaft Qualifiers: Encounter type: initial encounter Metacarpal bone: fourth Fracture type: closed Laterality: left Patient Disposition: Home, Self-Care Instructions: Hand Fracture (ED), R.I.C.E. Treatment (ED) Additional Instructions: As discussed, this splint needs to stay in place until you are evaluated by the consumer relations specialist. It cannot get wet. Please be sure to rest, apply ice to the hand for 10-15 minutes 4-6 times daily You can take ibuprofen 200 mg, 3 tablets (600mg) every 6-8 hours as needed for pain, in addition to Tylenol 500 mg, 2 tablets (1,000mg) every 4-6 hours as needed for pain, but not to exceed 3 doses daily (3,000mg).? Contact the orthopedic office on Tuesday to arrange for a follow-up appointment Return to the emergency department any new or worsening symptoms or concerns. Prescriptions: No Action (DME) FreeStyle Lite Strips Strip See Rx Instructions .Route Qty: 50 6RF Rx Instructions: Use 1 test strip once a day (DME) lancets [FreeStyle Lancets] 28 gauge misc See Rx Instructions .Route Qty: 100 3RF Rx Instructions: Use 1 lancet once a day (DME) blood-glucose meter [FreeStyle Lite Meter] Kit See Rx Instructions .Route Qty: 1 0RF Rx Instructions: As directed albuterol sulfate 90 mcg/actuation HFA aerosol inhaler 1 puff PO Q6H PRN (Reason: Wheezing) 30 Days Qty: 6.7 1RF atorvastatin 40 mg tablet 40 mg PO BEDTIME 90 Days Qty: 90 1RF metformin 500 mg tablet 500 mg PO DAILY 90 Days Qty: 90 1RF Referrals: Jerry Bauer MD [Physician] -
== END 2022-05-20 20:57 | disposition home or self-care (01) ==
PROVIDERS: Emergency Provider Emergency Medicine; PCP Internal Medicine
DX: S62.305A Unspecified fracture of fourth metacarpal bone, left hand, initial encounter for closed fracture (principal); X58.XXXA Exposure to other specified factors, initial encounter; Y93.89 Activity, other specified; Y92.9 Unspecified place or not applicable; Y99.9 Unspecified external cause status
CPT/HCPCS: 29125; 73110; 73130; 99284

== ENCOUNTER 2022-05-22 20:58 | Emergency (ER) | payer MEDICARE, MEDICAID, SELFPAY ==
[2022-05-22 21:54] VITALS: BP 117/69; PULSE 88; RESP 18; TEMP 36.4; O2SAT 96; BMI 32.6
--- NOTE | 2022-05-23 03:09 | ED.EXTPRO ---
HPI - Extremity Problem General Chief complaint: Extremity Injury, Upper Stated complaint: left hand and arm pain Time Seen by Provider: 05/23/22 03:08 Source: patient and family Mode of arrival: ambulatory Limitations: no limitations History of Present Illness HPI Narrative: 66-year-old male who presents emergency department for evaluation of pain and swelling in his left hand. The patient fell down stairs on 05/20/2022 and had a spiral fracture of the midshaft of the 4th metacarpal. Patient was placed in a sling. He states that his hand became more swollen and black and blue. He believes that the splint was too tight knee remove the splint. He states that he was not given any pain medications and he is having a constant, throbbing pain in his left hand which is 8/10 at its worst. He denies any other symptoms. Related Data Previous Rx's Medication Instructions Recorded albuterol sulfate 90 mcg/actuation 1 puff PO Q6H PRN Wheezing 30 days 05/10/22 aerosol inhaler #6.7 grams atorvastatin 40 mg tablet 40 mg PO BEDTIME 90 days #90 tabs 05/10/22 metformin 500 mg tablet 500 mg PO DAILY 90 days #90 tabs 05/10/22 blood sugar diagnostic (FreeStyle #50 ea 05/12/22 Lite Strips) lancets 28 gauge (FreeStyle #100 ea 05/12/22 Lancets) blood-glucose meter (FreeStyle #1 ea 05/14/22 Lite Meter kit) morphine 15 mg immediate release 15 mg PO Q4-6H PRN pain #10 tabs 05/23/22 tablet Allergies Allergy/AdvReac Type Severity Reaction Status Date / Time No Known Allergies Allergy Verified 05/10/22 08:33 [No Known Allergies*] Review of Systems Review of Systems: Yes all other systems are reviewed and are negative [facility] Past Medical History Medical History ARELIS (generalized anxiety disorder) Hearing loss Insomnia Knee pain Mild persistent asthma, uncomplicated Mild recurrent major depression Obese Physical exam Pure hypercholesterolemia Surgical History H/O colonoscopy History of knee replacement procedure of left knee History of knee replacement procedure of right knee Family History Family History Father Pancreatic cancer Mother Chronic mental illness Diabetes Hypertension Stroke Sister Cancer Family/Other Chronic mental illness Social History Social History Household Members: Children Housing: [facility] Are you a primary director of managed care to a significant other at home: No Do you presently have visiting nurse or other home services: No Alcohol intake: former Patient Tobacco Use Status: Current everyday Tobacco user Tobacco use type: Cigarette Cigarette Packs Per Day: 1 Cigarettes Per Day: 20 e-Cigarette/Vaping Use: Never Used Second Hand Smoke Exposure: No Advance Directives: No Advance Directives Information Provided: No service: No Current occupational status: disabled Cognitive needs: No Hearing needs: No Vision needs: No Physical Exam Vital Signs: Vital Signs: Last Vital Signs Temp 97.5 F 05/22/22 21:54 Pulse 88 05/22/22 21:54 Resp 18 05/22/22 21:54 BP 117/69 05/22/22 21:54 Pulse Ox 96 05/22/22 21:54 O2 Del Method 05/22/22 21:54 BMI result Body Mass Index 32.6 Const: Other: Awake, alert, male patient, very pleasant cooperative, no distress HEENT: Other: Normal cephalic atraumatic Resp: Other: No respiratory distress Extrem: Other: Left hand examination: Patient's metacarpal region has significant soft tissue swelling with ecchymosis over this area, the ecchymosis extends the wrist. Patient has no wrist tenderness. He does have tenderness palpation over the 3rd and 4th metacarpal areas, he is able to move his fingers without any difficulty, his extremities neurovascularly intact. Course Course Course Narrative: 66-year-old male who presents emergency department for evaluation of pain and swelling in his left hand, patient fell down stairs and has a spiral fracture of the shaft of the 4th metacarpal. Patient's hand is significantly swollen ecchymotic however his extremities neurovascular intact. I ordered 3 wears a cast padding and a ulnar gutter splint to be applied by the biological technical officer, the patient will be given a sling as well. Patient was ordered to get Tylenol 975 mg orally and morphine 15 mg orally for his pain. Patient will be discharged home and advised to follow-up with our orthopedic providers. Discharge Plan Discharge Clinical Impression: Soft tissue swelling, Ecchymosis Fracture of base of fourth metacarpal bone Qualifiers: Encounter type: initial encounter Fracture type: closed Laterality: left Patient Disposition: Home, Self-Care Instructions: Boxer Fracture (ED) Additional Instructions: Keep the splint on until you are re-evaluated by the orthopedic providers. Keep your hand elevated to help reduce the swelling in your hand and fingers Take Tylenol (acetaminophen) 500 mg, 2 pills every 4-6 hours as needed for pain. For pain not relieved by Tylenol take morphine 15 mg pills, 1 pill every 4 hours as needed for pain. This medication will make you sleepy, do not drive or work while taking this medication. Morphine is a narcotic medication and can be addicting. If you are concerned about addiction you can ask the pharmacist for less pills or do not get this prescription filled. Follow-up with your doctor in 2 days. Please return to the emergency department if your symptoms get worse or if you develop any symptoms that are concerning to you. Prescriptions: New morphine 15 mg tablet 15 mg PO Q4-6H PRN (Reason: pain) Qty: 10 0RF Rx Instructions: The patient may ask for partial fill; Partial Fill upon patient request. No Action (DME) FreeStyle Lite Strips Strip See Rx Instructions .Route Qty: 50 6RF Rx Instructions: Use 1 test strip once a day (DME) lancets [FreeStyle Lancets] 28 gauge misc See Rx Instructions .Route Qty: 100 3RF Rx Instructions: Use 1 lancet once a day (DME) blood-glucose meter [FreeStyle Lite Meter] Kit See Rx Instructions .Route Qty: 1 0RF Rx Instructions: As directed albuterol sulfate 90 mcg/actuation HFA aerosol inhaler 1 puff PO Q6H PRN (Reason: Wheezing) 30 Days Qty: 6.7 1RF atorvastatin 40 mg tablet 40 mg PO BEDTIME 90 Days Qty: 90 1RF metformin 500 mg tablet 500 mg PO DAILY 90 Days Qty: 90 1RF
[2022-05-23] MEDS: Acetaminophen 325 MG TABLET 975 MG PO (03:38)
[2022-05-23] MEDS: Morphine Sulfate Immed Release 15 MG TABLET PO (03:39)
--- NOTE | 2022-05-23 03:57 | PC.NURSE ---
This Pct applied a Ulnar Cutter splint to patients right hand/arm per . Pt tolerated procdure well .Dr Francis checked for pulses and placement of splint.Rn aware and at bedside.
== END 2022-05-23 04:00 | disposition home or self-care (01) ==
PROVIDERS: Emergency Provider Emergency Medicine Emergency Medical Services; PCP Internal Medicine
DX: S62.315A Displaced fracture of base of fourth metacarpal bone, left hand, initial encounter for closed fracture (principal); R60.0 Localized edema; W01.0XXA Fall on same level from slipping, tripping and stumbling without subsequent striking against object, initial encounter; Y93.9 Activity, unspecified; Y92.9 Unspecified place or not applicable; Y99.9 Unspecified external cause status
CPT/HCPCS: 99283

== ENCOUNTER 2022-06-01 | Outpatient (REF) | payer MEDICARE, MEDICAID, SELFPAY ==
--- NOTE | ~2022-06-01 | XR_ITS ---
EXAMINATION: XR HAND, LEFT CLINICAL INFORMATION: Fracture fourth metacarpal shaft. COMPARISON: Radiographs left hand wrist. TECHNIQUE: Left hand is imaged in 4 views. FINDINGS: There is an oblique fracture proximal to mid fourth metacarpal shaft with mild medial displacement distal fracture fragment. There is longitudinal fracture line extension within the shaft distal fragment. No visible intra-articular extension. No dislocation. No angulation. Remainder of bony structures appear intact. XR/XR hand LT min 3V IMPRESSION: Fracture fourth metacarpal.
== END 2022-06-01 00:01 | disposition home or self-care (01) ==
LOC: HO.HOSX
PROVIDERS: Visit Provider Physician Assistant
DX: S62.323A Displaced fracture of shaft of third metacarpal bone, left hand, initial encounter for closed fracture (principal)
CPT/HCPCS: 73130; 99202

== ENCOUNTER 2022-07-06 17:15 | Outpatient (REF) | payer MEDICARE, MEDICAID, SELFPAY | END 2022-07-06 17:16 | disposition home or self-care (01) | LOC: HO.HOSX 17:15 | PROVIDERS: Visit Provider Physician Assistant | DX: Z13.89 Encounter for screening for other disorder (principal) ==

== ENCOUNTER 2022-09-20 09:34 | Outpatient (REF) | payer MEDICARE, MEDICAID, SELFPAY ==
[2022-09-20 09:50] LABS: MANUAL DIFF FLAG NO
[2022-09-20 10:53] LABS: Basophils Absolute Auto 0.1 X10*3/uL (0.0-0.2); Basophils Percent Auto 0.6 % (0-2); Eosinophils Absolute Auto 0.4 X10*3/uL (0.0-0.4); Eosinophils Percent Auto 3.1 % (0-4); Hematocrit 40.8 % (42.0-52.0); Hemoglobin 13.5 g/dl (14.0-18.0); Imm Gran Abs Auto 0.05 X10*3/uL (0.00-0.03); Imm Gran Pct Auto 0.4 % (0.0-0.4); Lymphocytes Absolute Auto 4.2 X10*3/uL (1.2-4.9); Lymphocytes Percent Auto 32.2 % (20-40); Mean Corpuscular HGB Conc 33.1 g/dl (31.0-36.0); Mean Corpuscular Hemoglobin 30.6 pg (27.0-33.0); Mean Corpuscular Volume 92.5 fL (80.0-98.0); Mean Platelet Volume 9.7 fL (9.4-12.4); Monocytes Percent Auto 7.4 % (2-11); Neutrophils Absolute Auto 7.4 x10*3/uL (2.0-8.3); Neutrophils Percent Auto 56.3 % (45-73); Platelet Count 308 X10*3/uL (160-400); Red Blood Count 4.41 X10*6/uL (4.60-5.80); Red Cell Distribution Width 12.9 % (11.0-16.0); White Blood Count 13.1 X10*3/uL (4.8-10.8)
[2022-09-20 11:12] LABS: Estimated Average Glucose 148 mg/dL; Hemoglobin A1c % 6.8 %
[2022-09-20 11:56] LABS: Alanine Aminotransferase 19 U/L (0-40); Albumin Level 4.3 g/dL (3.5-5.0); Alkaline Phosphatase 110 U/L (39-117); Anion Gap 15 (12-20); Aspartate Amino Transferase 14 U/L (5-37); Bilirubin Total 1.1 mg/dL (0.0-1.0); Blood Urea Nitrogen 13 mg/dL (9-16); Calcium 9.1 mg/dL (8.4-10.2); Carbon Dioxide 27 mmol/L (22-29); Chloride 101 mmol/L (96-108); Cholesterol 185 mg/dL; Estimated Glomerular Filt Rate > 60; Glucose Fasting 124 mg/dL (60-99); HDL Cholesterol 31 mg/dL; Iron 103 mcg/dL (45-160); LDL Cholesterol Calculated 112 mg/dl; Percent Iron Saturation 34 % (15-50); Sodium 138 mmol/L (135-145); Total Iron Binding Capacity 305 mcg/dL (228-428); Total Protein 6.8 g/dL (6.5-8.0); Triglycerides 211 mg/dL; Unsaturated Iron Binding 202 ug/dL
[2022-09-20 12:24] LABS: Creatinine Urine 193.67 mg/dL; Microalbum/Creatinine Ratio Ur 8.7 ug/mg cr
== END 2022-09-20 09:35 | disposition home or self-care (01) ==
LOC: HO.LAB 09:34
PROVIDERS: PCP Internal Medicine; Visit Provider Internal Medicine
DX: D64.9 Anemia, unspecified (principal); E11.40 Type 2 diabetes mellitus with diabetic neuropathy, unspecified; E55.9 Vitamin D deficiency, unspecified; E78.5 Hyperlipidemia, unspecified
CPT/HCPCS: 36415; 80053; 80061; 82043; 82306; 83036; 83540; 85025

== ENCOUNTER 2023-03-01 09:19 | Outpatient (AMB) | payer MEDICARE, MEDICAID, SELFPAY ==
--- NOTE | 2023-03-01 09:28 | A.OFFPC_ITS ---
Vital Signs 03/01/23 09:29 Height 5 ft 9 in Weight 219 lb 2 oz BMI 32.4 BP 104/66 Blood Pressure Location Lt brachial Position Sitting Pulse 80 Pulse Source Pulse Oximeter Pulse Oximetry (%) 97 Oxygen Delivery Method Room Air Intake Visit Reasons: dm Intake Note: Patient is here to follow up on DMII. Spread Cutter Required: No Accompanied by: DaughterLyly Posada Allergies No Known Allergies [No Known Allergies*] Allergy (Verified 03/01/23 09:42) Medication List - Last Reconciled 03/01/23 by Yulia Montoya MD atorvastatin 40 mg PO BEDTIME 90 days blood sugar diagnostic (FreeStyle Lite Strips) Use 1 test strip once a day blood-glucose meter (FreeStyle Lite Meter kit) As directed lancets (FreeStyle Lancets) Use 1 lancet once a day metformin 500 mg PO DAILY 90 days sertraline 25 mg PO DAILY 90 days Ventolin HFA 90 mcg/actuation (albuterol sulfate) 2 puffs inhalation Q6H PRN 30 days NS Tobacco use date assessed: 09/16/22 Fall risk assessment: No Falls in past year Last assessed Fall Risk: 03/01/23 Dental Screening Dental Screen Date: 03/01/23 Did you have a dental visit in the last 12 months?: No Did you have a dental problem in the last 6 months where you did not have access to dental care?: No Was dental information given to patient?: Yes HPI HPI Comments History of Present Illness Details This is a 67-year-old male with diabetes mellitus type 2, mild major depression, mixed hyperlipidemia and COPD that comes today accompanied by shanel Smith for follow-up on his conditions. A1c within goal. Depression has been stable with sertraline. Last LDL was not on goal and this will be repeated. Use rescue inhaler few times a week and I will add a longstanding inhaler for his COPD. He said he does follow with pulmonology once a year. Complains of left hand pain and left knee pain occasionally. Also has some abdominal pain in the left flank that radiates to the back and also radiates to the inguinal area. Abdominal pain not associated with foods. [facility] Medical History (Updated 03/01/23 @ 09:54 by Yulia Montoya MD) ARELIS (generalized anxiety disorder) Hearing loss Insomnia Knee pain Mild persistent asthma, uncomplicated Mild recurrent major depression Obese Physical exam Pure hypercholesterolemia Surgical History H/O colonoscopy History of knee replacement procedure of left knee History of knee replacement procedure of right knee Family History Father Pancreatic cancer Mother Chronic mental illness Diabetes Hypertension Stroke Sister Cancer Family/Other Chronic mental illness Social History Household Members: Children Housing: [facility] Are you a primary home care attendant to a significant other at home: No Do you presently have visiting nurse or other home services: No Alcohol intake: former Patient Tobacco Use Status: Current everyday Tobacco user Tobacco use type: Cigarette Cigarette Packs Per Day: 1 Cigarettes Per Day: 20 e-Cigarette/Vaping Use: Never Used Second Hand Smoke Exposure: No service: No Current occupational status: disabled Cognitive needs: No Hearing needs: No Vision needs: No Questionnaire Thrive Questionnaire Date Thrive assessed: 09/16/22 ARELIS-7 AMB Questionnaire ARELIS-7 Date ARELIS - 7 assessed: 09/16/22 Source: Developed by Drs. Joaquin Tirado, Leona Craig, Rigo Parks and colleagues, with an educational rai from [employer] Review of Systems Const All systems reviewed & are unremarkable except as noted in HPI and below Eyes Reports no additional complaints, Denies change in vision and Denies other visual disturbances Card Denies chest pain at rest, Denies chest pain with activity, Denies edema, Denies irregular heart rhythm, Denies claudication, Denies dyspnea, Denies dyspnea on exertion, Denies orthopnea, Denies paroxysmal nocturnal dyspnea and Denies slow heart rate Resp Denies cough, Denies dyspnea and Denies dyspnea on exertion GI Denies abdominal pain, Denies change in bowel habits, Denies excessive flatus, Denies nausea and Denies vomiting Denies urinary hesitancy, Denies urinary incontinence and Denies urinary urgency Musc Denies abnormal gait, Denies atrophy, Denies deformity and Denies limited range of motion Skin/Breast Denies bleeding lesions, Denies changing lesions and Denies rash Neuro Denies abnormal gait and Denies lack of coordination Physical exam (Primary Care) Vital Signs: Last Vital Signs Pulse 80 09/05/23 09:29 BP 104/66 03/01/23 09:29 Pulse Ox 97 03/01/23 09:29 Oxygen Delivery Method Room Air 03/01/23 09:29 BMI result Body Mass Index 32.4 Tobacco/Smoking Status: Tobacco use Status Tobacco use date assessed 09/16/22 03/01/23 09:28 Patient Tobacco Use Status Current everyday Tobacco 03/01/23 09:28 Tobacco use type Cigarette 03/01/23 09:28 e-Cigarette/Vaping Use Never Used 03/01/23 09:28 Thrive Assessment: Date of Thrive Assessment Date Thrive assessed 09/16/22 03/01/23 09:28 Eyes General: appearance normal, both eyes and all related structures Eyelids: Yes eyelids normal Conjunctivae: conjunctivae normal Neck Neck: Yes normal visual inspection and Yes supple Resp Effort & Inspection: normal respiratory effort Auscultation: clear to auscultation bilaterally Cardio Jugular venous distension: no JVD Rate: regular rate Rhythm: regular rhythm Heart sounds: S1 normal heart sound present and S2 normal heart sound present Extrem General: Yes full ROM Results AMB Hemoglobin A1c AMB Hemoglobin A1c 6.7 % Last Edit by GINA Cosme on 03/01/23 09:38 Results Reviewed Results Reviewed: Laboratory Last Values Hgb A1c (Clinic) 6.7 % (4.0-6.0) H 03/01/23 09:28 Assessment and Plan Assessment & Plan (1) Diabetes mellitus: Code(s): E11.9 - Type 2 diabetes mellitus without complications Plan: Continue metformin. A1c goal is equal or less than 7%. (2) COPD (chronic obstructive pulmonary disease): Code(s): J44.9 - Chronic obstructive pulmonary disease, unspecified Plan: Use rescue inhaler as needed. Start longstanding inhaler. (3) Mild recurrent major depression: Code(s): F33.0 - Major depressive disorder, recurrent, mild Plan: Continue sertraline. (4) Mixed hyperlipidemia: Code(s): E78.2 - Mixed hyperlipidemia Plan: Continue statins. Repeat lipid panel. LDL goal is less than 70. Orders: Orders Comprehensive [place]. Panel Fast Today M79.642 - Pain in left hand Lipid Panel Today E78.5 - Hyperlipidemia, unspecified Vitamin D 25-OH Total Today E55.9 - Vitamin D deficiency, unspecified Microalbumin, Random (w Creat) Today E11.9 - Type 2 diabetes mellitus without complications US abdomen complete Today R10.9 - Unspecified abdominal pain XR hand LT 2V Today M79.642 - Pain in left hand XR knee LT 2V Today M25.562 - Pain in left knee XR KUB Today N23 - Unspecified renal colic AMB Hemoglobin A1c Today E11.9 - Type 2 diabetes mellitus without complications Medications: New mometasone-formoterol 50-5 mcg/actuation (Dulera) 2 puffs inhalation Q12H 30 days 13 grams 6RF J44.9 - Chronic obstructive pulmonary disease, unspecified Refilled atorvastatin 40 mg PO BEDTIME 90 days 90 tabs 1RF E78.2 - Mixed hyperlipidemia metformin 500 mg PO DAILY 90 days 90 tabs 1RF E11.9 - Type 2 diabetes mellitus without complications sertraline 25 mg PO DAILY 90 days 90 tabs 1RF F33.0 - Major depressive disorder, recurrent, mild Ventolin HFA 90 mcg/actuation (albuterol sulfate) 2 puffs inhalation Q6H 30 days PRN 8 grams 2RF shortness of breath or wheezing NS J44.9 - Chronic obstructive pulmonary disease, unspecified Coding Level of Care Code Est Pt Level 4 (67391) Diagnoses Diabetes mellitus E11.9 COPD (chronic obstructive pulmonary disease) J44.9 Mild recurrent major depression F33.0 Mixed hyperlipidemia E78.2 Time Spent (min) 22
[2023-03-01 09:29] VITALS: BP 104/66; PULSE 80; O2SAT 97; BMI 32.4
== END 2023-03-01 09:56 | disposition home or self-care (01) ==
PROVIDERS: PCP Internal Medicine; Visit Provider Internal Medicine
DX: E11.9 Type 2 diabetes mellitus without complications (principal); J44.9 Chronic obstructive pulmonary disease, unspecified; F33.0 Major depressive disorder, recurrent, mild; E78.2 Mixed hyperlipidemia
CPT/HCPCS: 83036; 99214

== ENCOUNTER 2023-03-09 07:48 | Outpatient (REF) | payer MEDICARE, MEDICAID, SELFPAY ==
--- NOTE | ~2023-03-09 | XR_ITS ---
EXAMINATION: XR HAND, LEFT CLINICAL INFORMATION: Pain. COMPARISON: Radiographs dated 05/20/2022. TECHNIQUE: PA, lateral, and oblique views of the left hand. FINDINGS: There is bony demineralization. There is an ulnar positive variance. There is mild narrowing of the fourth and fifth distal interphalangeal joint spaces. No fracture or dislocation is seen. There is no soft tissue calcifications or foreign body. 2 adjacent 1 mm radiodensities are seen in the volar wrist soft tissues, stable from prior radiographs. XR/XR hand LT min 3V IMPRESSION: 1. No fracture or dislocation is seen. 2. There is very mild degenerative change of the fourth and fifth distal interphalangeal joints. 3. Small metallic foreign bodies are again seen in the volar wrist soft tissues.
--- NOTE | ~2023-03-09 | XR_ITS ---
EXAMINATION: XR KNEE, LEFT CLINICAL INFORMATION: Pain. COMPARISON: Radiographs dated 09/24/2021. TECHNIQUE: AP and lateral views of the left knee. FINDINGS: Prosthetic components of the total knee arthroplasty are appropriately aligned without periprosthetic fracture or abnormal lucency. No component migration. No joint effusion. XR/XR knee LT 2V IMPRESSION: Appropriate alignment of the left total knee arthroplasty without evidence of complications.
--- NOTE | ~2023-03-09 | XR_ITS ---
EXAMINATION: XR ABDOMEN KUB CLINICAL INDICATION: Renal colic. COMPARISON: CT abdomen and pelvis dated 02/05/2016. TECHNIQUE: 2 AP views of the abdomen and pelvis are submitted. FINDINGS: The bowel gas pattern is normal with no evidence of ileus or obstruction. No unusual soft tissue calcifications are noted. No acute osseous abnormality is seen. XR/XR KUB IMPRESSION: Unremarkable examination. No renal calculus is presently identified radiographically.
[2023-03-09 08:46] LABS: Alanine Aminotransferase 21 U/L (0-40); Albumin Level 4.3 g/dL (3.5-5.0); Alkaline Phosphatase 99 U/L (39-117); Anion Gap 13 (12-20); Aspartate Amino Transferase 16 U/L (5-37); Bilirubin Total 0.6 mg/dL (0.0-1.0); Blood Urea Nitrogen 13 mg/dL (9-16); Calcium 9.6 mg/dL (8.4-10.2); Carbon Dioxide 29 mmol/L (22-29); Chloride 102 mmol/L (96-108); Cholesterol 247 mg/dL (<200); Estimated Glomerular Filt Rate > 60; Glucose Fasting 132 mg/dL (60-99); HDL Cholesterol 34 mg/dL (>40); LDL Cholesterol Calculated 164 mg/dL (<100); Potassium 4.6 mmol/L (3.3-5.1); Sodium 139 mmol/L (135-145); Total Protein 7.3 g/dL (6.5-8.0); Triglycerides 248 mg/dL (<150)
[2023-03-09 09:01] LABS: Vitamin D 25-OH Total 29.1 ng/mL (>30)
[2023-03-09 10:01] LABS: Creatinine Urine 159.08 mg/dL; Microalbum/Creatinine Ratio Ur 6.2 ug/mg cr (<30)
== END 2023-03-09 07:49 | disposition home or self-care (01) ==
LOC: HO.XRAY 07:48
PROVIDERS: PCP Internal Medicine; Visit Provider Internal Medicine
DX: E55.9 Vitamin D deficiency, unspecified (principal); E11.9 Type 2 diabetes mellitus without complications; E78.5 Hyperlipidemia, unspecified; M79.642 Pain in left hand; N23 Unspecified renal colic; M25.562 Pain in left knee
CPT/HCPCS: 36415; 73130; 73560; 74018; 80053; 80061; 82043; 82306; 82570

== ENCOUNTER 2023-03-25 08:26 | Outpatient (REF) | payer MEDICARE, MEDICAID, SELFPAY ==
--- NOTE | ~2023-03-25 | US_ITS ---
EXAMINATION: US ABDOMEN COMPLETE CLINICAL INFORMATION: Unspecified abdominal pain. COMPARISON: X-ray abdomen KUB 03/09/2023. CT abdomen and pelvis 02/05/2016. TECHNIQUE: Real-time imaging of the abdominal viscera. FINDINGS: PANCREAS: Normal. ABDOMINAL AORTA: The proximal segment is largely obscured by overlying bowel gas. The mid and distal segments are normal in caliber. INFERIOR VENA CAVA: Visualized portions are normal. LIVER: There is borderline hepatomegaly, with a longitudinal span of 17.0 cm. The liver contour is normal. There is diffuse increased liver parenchymal echogenicity, with pericholecystic sparing. No focal hepatic lesion. There is no intrahepatic biliary duct dilatation seen. GALLBLADDER: Normal. The gallbladder is physiologically distended without evidence of stones, sludge, polyps, wall thickening or pericholecystic fluid. COMMON BILE DUCT: Normal in caliber measuring 0.5 cm in diameter. RIGHT KIDNEY: Normal. No hydronephrosis. No renal calculi or focal parenchymal lesions. The kidney measures 11.4 cm in maximum dimension. LEFT KIDNEY: No hydronephrosis or renal calculi. The kidney measures 12.0 cm in maximum dimension. At the upper pole laterally, a 1.6 x 1.9 x 1.7 cm mildly complex cyst is seen, with fine septation. This is stable from the contrast-enhanced CT examination dated 08/14/2014 (4:40-1, 3:98 and 5:300), and no imaging follow-up is recommended. There is no mural nodularity or associated color Doppler flow. SPLEEN: Normal. The spleen measures 9.4 cm in maximum dimension. FREE FLUID: None. US/US abdomen complete IMPRESSION: 1. There is borderline hepatomegaly. 2. There is generalized increase in hepatic echotexture, consistent with fatty infiltration or hepatocellular disease. Please correlate clinically. No focal hepatic mass or intrahepatic biliary dilatation is seen. 3. There is a stable likely benign, Bosniak 2 left renal cyst, with fine septation. This finding requires no imaging follow-up.
== END 2023-03-25 08:27 | disposition home or self-care (01) ==
LOC: HO.US 08:26
PROVIDERS: PCP Internal Medicine; Visit Provider Internal Medicine
DX: R10.9 Unspecified abdominal pain (principal)
CPT/HCPCS: 76700

== ENCOUNTER 2023-04-08 07:48 | Outpatient (REF) | payer MEDICARE, MEDICAID, SELFPAY ==
[2023-04-08 10:25] LABS: Creatinine Urine 169.94 mg/dL; Microalbum/Creatinine Ratio Ur 5.8 ug/mg cr (<30)
[2023-04-08 10:28] LABS: Alanine Aminotransferase 17 U/L (0-40); Albumin Level 4.3 g/dL (3.5-5.0); Alkaline Phosphatase 95 U/L (39-117); Anion Gap 16 (12-20); Aspartate Amino Transferase 12 U/L (5-37); Bilirubin Total 0.3 mg/dL (0.0-1.0); Blood Urea Nitrogen 12 mg/dL (9-16); Calcium 9.1 mg/dL (8.4-10.2); Carbon Dioxide 26 mmol/L (22-29); Chloride 103 mmol/L (96-108); Cholesterol 241 mg/dL (<200); Estimated Glomerular Filt Rate > 60; Glucose Fasting 130 mg/dL (60-99); HDL Cholesterol 33 mg/dL (>40); LDL Cholesterol Calculated 173 mg/dL (<100); Potassium 4.6 mmol/L (3.3-5.1); Sodium 140 mmol/L (135-145); Total Protein 7.2 g/dL (6.5-8.0); Triglycerides 179 mg/dL (<150)
[2023-04-08 10:44] LABS: Vitamin D 25-OH Total 30.5 ng/mL (>30)
== END 2023-04-08 07:49 | disposition home or self-care (01) ==
LOC: HO.LAB 07:48
PROVIDERS: PCP Internal Medicine; Visit Provider Internal Medicine
DX: E11.9 Type 2 diabetes mellitus without complications (principal); E78.5 Hyperlipidemia, unspecified; E55.9 Vitamin D deficiency, unspecified
CPT/HCPCS: 36415; 80053; 80061; 82043; 82306; 82570

== ENCOUNTER 2023-04-18 13:02 | Emergency (ER) | payer MEDICARE, MEDICAID, SELFPAY ==
--- NOTE | ~2023-04-18 | CT_ITS ---
EXAMINATION: CT ABDOMEN AND PELVIS WITHOUT CONTRAST CLINICAL INFORMATION: Left-sided flank pain COMPARISON: CT abdomen pelvis 05/16/2016 TECHNIQUE: Multidetector volumetric imaging was performed from the superior aspect of the liver through the pubic symphysis. Sagittal and coronal reformatted images were obtained on the technologist's workstation. This CT examination was performed using dose optimization techniques as appropriate, variously including the following: *Automated exposure control *Adjustment of mA and/or kV according to patient size (this includes techniques or standardized protocols for targeted exams where dose is matched to indication/reason for exam; i.e. extremities or head) *Use of iterative reconstruction technique DLP: 1029 mGy-cm FINDINGS: LUNG BASES: The visualized lung bases are unremarkable. LIVER, GALLBLADDER, AND BILIARY TREE: The liver is normal in size and shape but demonstrates decreased attenuation consistent with hepatic steatosis. No focal hepatic lesion or biliary ductal dilatation is present. The gallbladder is unremarkable with no evidence of radiopaque gallstones, gallbladder wall thickening, or obvious pericholecystic inflammatory changes. PANCREAS: Unremarkable. SPLEEN: Spleen is enlarged at 13 cm. ADRENAL GLANDS: Unremarkable. KIDNEYS AND URETERS: The kidneys are normal in size, shape, and attenuation. No hydronephrosis, hydroureter, or calculi seen. No perinephric stranding. A benign 1.5 cm left side Bosniak class I renal cyst is noted which requires no additional imaging or follow up. No solid renal masses are seen although assessment is suboptimal without IV contrast. BLADDER: Unremarkable. GASTROINTESTINAL TRACT: There are colonic diverticula. In the mid descending colon on the left, there is a subtle area of some minimal pericolonic streaky changes with some thickening of the lateral conal fascia and anterior pararenal fascia (3:39 and 10:54) that may represent extremely subtle early diverticulitis. These findings were not present on the 02/05/2016 study. The small and large bowel are otherwise unremarkable. The appendix is unremarkable. ABDOMINAL WALL: No significant hernia is appreciated. LYMPH NODES: No retroperitoneal lymphadenopathy VASCULAR: Calcific plaque present in the aorta and iliac vessels without aneurysm PELVIC VISCERA: There is mild BPH. Seminal vesicles appear normal. OSSEOUS STRUCTURES: Unremarkable. CT/CT abdomen pelvis wo IV con IMPRESSION: 1. There is a subtle area of pericolonic streaky changes in the mid descending colon on the left that may represent extremely subtle early diverticulitis. 2. Incidental note made of hepatic steatosis, mild splenomegaly, mild BPH and benign left renal cyst which requires no additional imaging or follow up. 3. No nephrolithiasis. Fleischner guidelines were followed.
[2023-04-18 13:14] VITALS: BP 133/73; PULSE 90; RESP 20; TEMP 36.6; O2SAT 94; BMI 32.9
--- NOTE | 2023-04-18 13:14 | ECG_ITS ---
Test Reason : dizzy Blood Pressure : / mmHG Vent. Rate : 081 BPM Atrial Rate : 081 BPM P-R Int : 164 ms QRS Dur : 082 ms QT Int : 372 ms P-R-T Axes : 050 018 040 degrees QTc Int : 432 ms Normal sinus rhythm Normal ECG When compared with ECG of 26-DEC-2019 10:34, No significant change was found Referred By: Kiersten Alves Electronically Signed By:KATY MONAE MD
--- NOTE | 2023-04-18 13:14 | ED.GENADULT ---
HPI - General Adult General Chief complaint: Abdominal Pain Stated complaint: abd pain into groin and into back Time Seen by Provider: 04/18/23 23:31 Source: patient Mode of arrival: ambulatory Limitations: no limitations History of Present Illness HPI narrative: 67 yo male with PMH of PRESCOTT, asthma, DM, HLD here with c/o 1 month of L flank pain but no n/v/d it radiates to the groin. No weight loss. He states he had an ultrasound recently for this through his doctor. He notes it hurts sometimes when he moves. MD complaint: abdominal pain Onset (ago): month(s) (1) Location: abdomen Radiation: other (groin) Severity: moderate Quality: aching Pain Consistency: intermittent Relieving factors: none Exacerbating factors: movement Associated symptoms: denies other symptoms Treatments prior to arrival: none Related Data Previous Rx's Medication Instructions Recorded blood sugar diagnostic (FreeStyle #50 ea 05/12/22 Lite Strips) lancets 28 gauge (FreeStyle #100 ea 05/12/22 Lancets) blood-glucose meter (FreeStyle #1 ea 05/14/22 Lite Meter kit) Ventolin HFA 90 mcg/actuation 2 puff inhalation Q6H PRN 03/01/23 aerosol inhaler (albuterol sulfate) shortness of breath or wheezing 30 days #8 grams metformin 500 mg tablet 500 mg PO DAILY 90 days #90 tabs 03/01/23 mometasone-formoterol HFA 50 mcg-5 2 puff inhalation Q12H 30 days #13 03/01/23 mcg/actuation aerosol inhaler grams (Dulera) sertraline 25 mg tablet 25 mg PO DAILY 90 days #90 tabs 03/01/23 atorvastatin 80 mg tablet 80 mg PO BEDTIME 90 days #90 tabs 03/20/23 amoxicillin 875 mg-potassium 1 tab PO BID #14 tabs 04/19/23 clavulanate 125 mg tablet ondansetron 4 mg disintegrating 4 mg PO Q8H PRN nausea and 04/19/23 tablet vomiting #20 tabs oxycodone 5 mg tablet 5 mg PO Q8H PRN pain #10 tabs 04/19/23 Allergies Allergy/AdvReac Type Severity Reaction Status Date / Time No Known Allergies Allergy Verified 03/01/23 09:42 [No Known Allergies*] Review of Systems Review of Systems: Constitutional : No Weight loss, No Fever, No Chills ENT/Mouth : No sore throat, No Rhinorrhea Eyes: No Swelling, No Redness Cardiovascular : No Chest Pain, No SOB, NoEdema Respiratory : No Cough, No Sputum, No Wheezing Gastrointestinal : no Nausea, no Vomiting, no Diarrhea, positive abdominal Pain, No Hematochezia, No Melena Genitourinary : No Dysuria, No Urinary Frequency, No Hematuria, No Urgency Musculoskeletal : No joint pain, No Myalgias, No Joint Swelling Skin : No Skin Lesions, No rash Neuro : No Weakness, No Numbness, No Dizziness, No Headache Psych : No Anxiety/Panic, No Depression Heme/Lymph: No Bruising, No Lymphadenopathy Endocrine : No Polyuria, No Polydipsia All other systems reviewed and are negative. [facility] [place] Past Medical History Attestation statement: The following information was validated with the patient. Source: old records reviewed Medical History ARELIS (generalized anxiety disorder) Knee pain Mild persistent asthma, uncomplicated Mild recurrent major depression Hearing loss Physical exam Obese Pure hypercholesterolemia Insomnia Surgical History H/O colonoscopy History of knee replacement procedure of right knee History of knee replacement procedure of left knee Family History Family History Father Pancreatic cancer Mother Chronic mental illness Diabetes Hypertension Stroke Sister Cancer Family/Other Chronic mental illness Social History Social History Household Members: Children Housing: [facility] Are you a primary health care specialist to a significant other at home: No Do you presently have visiting nurse or other home services: No Alcohol intake: former Patient Tobacco Use Status: Current everyday Tobacco user Tobacco use type: Cigarette Cigarette Packs Per Day: 1 Cigarettes Per Day: 20 e-Cigarette/Vaping Use: Never Used Second Hand Smoke Exposure: No Advance Directives: No Advance Directives Information Provided: Yes service: No Current occupational status: disabled Cognitive needs: No Hearing needs: No Vision needs: No Physical Exam ED Vital Signs: Vital Signs - 24 hr 04/18/23 13:14 04/18/23 23:23 Temperature 97.8 F 97.4 F Pulse Rate 90 76 Respiratory Rate 20 18 Blood Pressure 133/73 146/74 H Pulse Oximetry 94 99 Oxygen Delivery Method Room Air Room Air BMI result Body Mass Index 32.9 Appearance: Alert. Oriented X3. No acute distress. Eyes: Pupils equal, round and reactive to light. ENT: Pharynx normal. Neck: Normal inspection. Neck supple. CVS: Normal heart rate and rhythm. Pulses normal. Respiratory: No respiratory distress. Breath sounds normal. Abdomen: Soft and obese with ttp on L abdomen but no mass felt Skin: Skin warm and dry. Normal skin color. Normal skin turgor. Extremities: No lower extremity edema. No calf ttp Neuro: Oriented X 3. No motor deficit. No sensory deficit. Course Course Course Narrative: RME performed by Kiersten Alves PA-C. Patient is a 67 year old assigned male at presenting to the emergency department with left flank and left abdominal pain. Labs and swabs ordered. Patient placed back in the waiting room pending room availability and results. Medical Decision Making Medical Decision Making [facility] Narrative: 67 yo male with PMH of PRESCOTT, asthma, DM, HLD here with c/o L flank pain and some pain with movements x 1 month at this time will need labs, UA, CT scan for mass. Offer oral medications as needed could be stone, mass, diverticulitis Differential Diagnosis Differential Diagnoses: The differential diagnosis associated with the presentation includes stone, mass, hernia, abdominal wall strain Admission/Observation Consideration of admission/observation: Escalation of care including admission/observation considered not toxic, labs stable, can be managed as outpatient Lab Data [facility] Lab Attestation statement: I reviewed the patient's lab results. 04/18/23 15:56 04/18/23 15:56 Labs: Lab Results 04/18/23 04/18/23 Range/Units 15:56 18:22 WBC 13.9 H (4.8-10.8) X10*3/uL RBC 4.64 (4.60-5.80) X10*6/uL Hgb 14.2 (14.0-18.0) g/dl Hct 41.8 L (42.0-52.0) % MCV 90.1 (80.0-98.0) fL MCH 30.6 (27.0-33.0) pg MCHC 34.0 (31.0-36.0) g/dl RDW 13.2 (11.0-16.0) % Plt Count 265 (160-400) X10*3/uL MPV 9.2 L (9.4-12.4) fL Immature Gran % (Auto) 0.5 H (0.0-0.4) % Neut % (Auto) 55.3 (45-73) % Lymph % (Auto) 32.9 (20-40) % [place] % (Auto) 7.5 (2-11) % Eos % (Auto) 2.9 (0-4) % Baso % (Auto) 0.9 (0-2) % Lymph # (Auto) 4.6 (1.2-4.9) X10*3/uL [place] # (Auto) 1.0 (0.1-1.2) X10*3/uL Eos # (Auto) 0.4 (0.0-0.4) X10*3/uL Baso # (Auto) 0.1 (0.0-0.2) X10*3/uL Abs Immat Gran (auto) 0.07 H (0.00-0.03) X10*3/uL Absolute Neuts (auto) 7.7 (2.0-8.3) x10*3/uL Absolute Nucleated RBC 0.000 (0.0-0.012) X10*3/uL Nucleated RBC % (auto) 0.0 (0.0-0.2) /100WBC PT 11.3 (11.1-13.3) SEC INR 0.9 (0.9-1.1) APTT 36.8 H (26.0-36.4) SEC Sodium 137 (135-145) mmol/L Potassium 4.3 (3.3-5.1) mmol/L Chloride 104 (96-108) mmol/L Carbon Dioxide 21 L (22-29) mmol/L Anion Gap 16 (12-20) BUN 10 (9-16) mg/dL Creatinine 0.73 (0.5-1.4) mg/dL Estim Creat Clear Calc 115.0 Estimated GFR > 60 Random Glucose 87 (60-115) mg/dL Calcium 9.7 D (8.4-10.2) mg/dL Magnesium 2.6 (1.6-2.6) mg/dL Total Bilirubin 0.4 (0.0-1.0) mg/dL AST 16 (5-37) U/L ALT 21 (0-40) U/L Alkaline Phosphatase 107 (39-117) U/L Troponin I High Sens < 2.7 (<3.5-35.0) ng/L Total Protein 7.9 (6.5-8.0) g/dL Albumin 4.5 (3.5-5.0) g/dL Urine Color Yellow Urine Appearance Clear Urine pH 5.5 (5.0-9.0) Ur Specific [place] 1.025 (1.005-1.025) Urine Protein Negative (Neg-Trace) mg/dL Urine Glucose (UA) Negative (Negative) mg/dL Urine Ketones Negative (Negative) mg/dL Urine Blood Negative (Negative) Urine Nitrite Negative (Negative) Ur Leukocyte Esterase Negative (Negative) Influenza Type A (PCR) NEGATIVE (Negative) Influenza Type B (PCR) NEGATIVE (Negative) RSV RNA Qual (PCR) NEGATIVE (Negative) SARS-CoV-2 RNA (RT-PCR) NEGATIVE (Negative) Independent Interpretation I performed an independent interpretation of an: EKG and CT Scan (no renal colic, diverticulitis) Interpretation: Rate: 81 Rhythm: NSR [place]: normal Normal P waves. Normal FABI. Normal QRS complex. ST T wave : no JASON qTC: normal prior studies: no acute ischemia The study has been interpreted contemporaneously by me. . Radiology Impression Discussion of test interpretation with radiology: I have reviewed the radiologist's reading. Independent Historian Clinical information obtained from an independent historian. History obtained from or confirmed by: Friend External Record Review External record reviewed: Inpatient record Prescription Management I considered prescription management with: Pain Medication and Antibiotic Discharge Plan Discharge Clinical Impression: Diverticulitis Abdominal pain Qualifiers: Abdominal location: left lower quadrant Qualified Code(s): R10.32 - Left lower quadrant pain Patient Disposition: Home, Self-Care Instructions: Diverticulitis (ED), Abdominal Pain (ED) Additional Instructions: your labs were reassuring. your CT scan shows mild possible early diverticulitis (infection of large intestine) return for worsening symptoms, fevers, vomiting, bloody stools. take all of the antibiotic. follow up with your doctor in 1 to 2 weeks. On amoxicillin-clavulanate, softer bowel movements are to be expected. Call your provider if you move your bowels more than 4 times a day, your bowel movements are almost all liquid, or you get a rash.? Wilma an?lisis fueron tranquilizadores. estevez tomograf?a computarizada muestra ame posible diverticulitis temprana leve (infecci?n del intestino grueso) que regresa con s?ntomas que empeoran, fiebre, v?mitos y heces con yenni. yuan todo el antibi?fabienne. rodriguez un seguimiento con estevez m?dico en 1 a 2 semanas. Con amoxicilina-clavulanato se pueden esperar deposiciones m?s blandas. Llame a estevez proveedor si defeca m?s de 4 veces al d?a, si wilma deposiciones son tari todas l?quidas o si tiene sarpullido Prescriptions: New amoxicillin-pot clavulanate 875-125 mg tablet 1 tab PO BID Qty: 14 0RF ondansetron 4 mg tablet,disintegrating 4 mg PO Q8H PRN (Reason: nausea and vomiting) Qty: 20 0RF oxycodone 5 mg tablet 5 mg PO Q8H PRN (Reason: pain) Qty: 10 0RF Rx Instructions: Partial Fill upon patient request. No Action (DME) FreeStyle Lite Strips Strip See Rx Instructions .Route Qty: 50 6RF Rx Instructions: Use 1 test strip once a day (DME) lancets [FreeStyle Lancets] 28 gauge misc See Rx Instructions .Route Qty: 100 3RF Rx Instructions: Use 1 lancet once a day (DME) blood-glucose meter [FreeStyle Lite Meter] Kit See Rx Instructions .Route Qty: 1 0RF Rx Instructions: As directed atorvastatin 80 mg tablet 80 mg PO BEDTIME 90 Days Qty: 90 1RF Dulera 50-5 mcg/actuation HFA aerosol inhaler 2 puff inhalation Q12H 30 Days Qty: 13 6RF metformin 500 mg tablet 500 mg PO DAILY 90 Days Qty: 90 1RF sertraline 25 mg tablet 25 mg PO DAILY 90 Days Qty: 90 1RF albuterol sulfate [Ventolin HFA] 90 mcg/actuation HFA aerosol inhaler 2 puff inhalation Q6H PRN (Reason: shortness of breath or wheezing) 30 Days Qty: 8 2RF Print Language: Kiswahili
[2023-04-18 16:02] LABS: MANUAL DIFF FLAG NO
[2023-04-18 16:07] LABS: Basophils Absolute Auto 0.1 X10*3/uL (0.0-0.2); Basophils Percent Auto 0.9 % (0-2); Eosinophils Absolute Auto 0.4 X10*3/uL (0.0-0.4); Eosinophils Percent Auto 2.9 % (0-4); Hematocrit 41.8 % (42.0-52.0); Hemoglobin 14.2 g/dl (14.0-18.0); Imm Gran Abs Auto 0.07 X10*3/uL (0.00-0.03); Imm Gran Pct Auto 0.5 % (0.0-0.4); Lymphocytes Absolute Auto 4.6 X10*3/uL (1.2-4.9); Lymphocytes Percent Auto 32.9 % (20-40); Mean Corpuscular Hemoglobin 30.6 pg (27.0-33.0); Mean Corpuscular Volume 90.1 fL (80.0-98.0); Mean Platelet Volume 9.2 fL (9.4-12.4); Monocytes Percent Auto 7.5 % (2-11); Neutrophils Absolute Auto 7.7 x10*3/uL (2.0-8.3); Neutrophils Percent Auto 55.3 % (45-73); Platelet Count 265 X10*3/uL (160-400); Red Blood Count 4.64 X10*6/uL (4.60-5.80); Red Cell Distribution Width 13.2 % (11.0-16.0); White Blood Count 13.9 X10*3/uL (4.8-10.8)
[2023-04-18 16:10] LABS: INTERNATIONAL NORM RATIO 0.9 (0.9-1.1); Prothrombin Time 11.3 SEC (11.1-13.3)
[2023-04-18 16:13] LABS: Partial Thromboplastin Time 36.8 SEC (26.0-36.4)
[2023-04-18 16:21] LABS: Alanine Aminotransferase 21 U/L (0-40); Albumin Level 4.5 g/dL (3.5-5.0); Alkaline Phosphatase 107 U/L (39-117); Anion Gap 16 (12-20); Aspartate Amino Transferase 16 U/L (5-37); Bilirubin Total 0.4 mg/dL (0.0-1.0); Blood Urea Nitrogen 10 mg/dL (9-16); Calcium 9.7 mg/dL (8.4-10.2); Carbon Dioxide 21 mmol/L (22-29); Chloride 104 mmol/L (96-108); Estimated Glomerular Filt Rate > 60; Glucose Random 87 mg/dL (60-115); Magnesium 2.6 mg/dL (1.6-2.6); Potassium 4.3 mmol/L (3.3-5.1); Sodium 137 mmol/L (135-145); Total Protein 7.9 g/dL (6.5-8.0)
[2023-04-18 16:30] LABS: Troponin-I High Sensitivity < 2.7 ng/L (<3.5-35.0)
[2023-04-18 16:42] LABS: Influenza A PCR NEGATIVE (Negative); Influenza B PCR NEGATIVE (Negative); Resp Syncy Virus RNA Qual PCR NEGATIVE (Negative); SARS COV2 PCR INHOUSE NEGATIVE (Negative)
[2023-04-18 18:32] LABS: Appearance Urine Clear; Color Urine Yellow; Glucose Urine UA Negative (Negative); Leukocyte Esterase Urine Negative (Negative); Nitrite Urine Negative (Negative); PH 5.5 (5.0-9.0); Specific Gravity - Urine 1.025 (1.005-1.025); Urine Blood Negative (Negative); Urine Ketones Negative (Negative); Urine Protein Negative (Neg-Trace)
[2023-04-18 23:23] VITALS: BP 146/74; PULSE 76; RESP 18; TEMP 36.3; O2SAT 99
[2023-04-19] MEDS: Amoxicillin/Potassium Clav 875 MG TABLET PO (01:03)
[2023-04-19] MEDS: oxyCODONE HCl Immed Release 5 MG TABLET PO (01:03)
== END 2023-04-19 01:10 | disposition home or self-care (01) ==
PROVIDERS: Physician Assistant Medical; Emergency Provider Emergency Medicine; PCP Internal Medicine
DX: R10.32 Left lower quadrant pain (principal); M54.50 Low back pain, unspecified; F17.210 Nicotine dependence, cigarettes, uncomplicated; Z20.822 Contact with and (suspected) exposure to COVID-19; Z20.828 Contact with and (suspected) exposure to other viral communicable diseases; Z79.899 Other long term (current) drug therapy; Z71.6 Tobacco abuse counseling
CPT/HCPCS: 0241U; 36415; 74176; 80053; 81003; 83735; 84484; 85025; 85610; 85730; 93005; 99283; 99284; 99285

== ENCOUNTER 2023-04-25 13:54 | Outpatient (AMB) | payer MEDICARE, MEDICAID, SELFPAY ==
--- NOTE | 2023-04-25 14:00 | MHC.PC.OV ---
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 Required: No Accompanied by: Self / Same As Patient Allergies No Known Allergies [No Known Allergies*] Allergy (Verified 04/25/23 14:31) Medication List - Last Reconciled 04/25/23 by Trae Gipson MD amoxicillin-pot clavulanate 875-125 mg 1 tab PO BID atorvastatin 80 mg PO BEDTIME 90 days blood sugar diagnostic (FreeStyle Lite Strips) Use 1 test strip once a day blood-glucose meter (FreeStyle Lite Meter kit) As directed ciprofloxacin HCl 500 mg PO BID 7 days lancets (FreeStyle Lancets) Use 1 lancet once a day metformin 500 mg PO DAILY 90 days metronidazole 500 mg PO TID 7 days mometasone-formoterol 50-5 mcg/actuation (Dulera) 2 puffs inhalation Q12H 30 days ondansetron 4 mg PO Q8H PRN oxycodone 5 mg PO BID PRN sertraline 25 mg PO DAILY 90 days Ventolin HFA 90 mcg/actuation (albuterol sulfate) 2 puffs inhalation Q6H PRN 30 days NS Tobacco use date assessed: 04/25/23 Fall risk assessment: 1 Fall in past year Last assessed Fall Risk: 04/25/23 Dental Screening Dental Screen Date: 04/25/23 Did you have a dental visit in the last 12 months?: No Did you have a dental problem in the last 6 months where you did not have access to dental care?: No Was dental information given to patient?: No HPI [facility] 04/19 abd pain HPI Details Patient comes in today for his HDF follow up visit Was seen at the ER last week for increasing LLQ abdominal pain Abdominal and pelvic CT done revealed (+) subtle area of pericolonic streaky changes in the mid descending colon on the left that may represent extremely subtle early diverticulitis He was sent home on Augmentin 875 mg BID x 7 days, Ondansetron PRN for nausea/vomiting and some Oxycodone 5 mg PRN for pain States that he has a day left on his Abx and that he feels no better than he did a week ago Is still experiencing increased pain over the left-side of the abdomen and he states that his symptoms feel worse when he tries to move his bowels although he has not noticed any blood in his stool - would like to get something again to help with his pain temporarily States that he was given some Oxycodone 5 mg at the ER that helped him over the past few days Also still has occasional nausea but denies any vomiting lately He was referred by PCP to GI a couple of weeks ago but they cannot get him in until June 2023 - was advised that he will need to get a new referral for an urgent consultation regarding his current abdominal pain He denies any fever, headaches or dizziness Denies any chest pains, no SOB noted PFSH Medical History ARELIS (generalized anxiety disorder) Knee pain Mild persistent asthma, uncomplicated Mild recurrent major depression Hearing loss Physical exam Obese Pure hypercholesterolemia Insomnia Surgical History H/O colonoscopy History of knee replacement procedure of right knee History of knee replacement procedure of left knee Family History Father Pancreatic cancer Mother Chronic mental illness Diabetes Hypertension Stroke Sister Cancer Family/Other Chronic mental illness Social History Household Members: Children [facility] Are you a primary director of career resources to a significant other at home: No Do you presently have visiting nurse or other home services: No Alcohol intake: former Patient Tobacco Use Status: Current everyday Tobacco user Tobacco use type: Cigarette Cigarette Packs Per Day: 1 Cigarettes Per Day: 20 e-Cigarette/Vaping Use: Never Used Second Hand Smoke Exposure: No service: No Current occupational status: disabled Cognitive needs: No Hearing needs: No Vision needs: No Questionnaire PHQ-9 Over the last 2 weeks, how often have you been bothered by any of the following problems? 1. Little interest or pleasure in doing things: several days 2. Feeling down, depressed, or hopeless: nearly every day 3. Trouble falling or staying asleep, or sleeping too much: nearly every day 4. Feeling tired or having little energy: more than half the days 5. Poor appetite or overeating: several days 6. Feeling bad about yourself - or that you are a failure or have let yourself or your family down: not at all 7. Trouble concentrating on things, such as reading the newspaper or watching television: several days 8. Moving or speaking so slowly that other people could have noticed. Or the opposite - being so fidgety or restless that you have been moving around a lot more than usual: several days 9. Thoughts that you would be better off or of hurting yourself in some way: not at all Total score: 12 Depression Screening Interpretation: Positive Depression Screening Follow-up: Existing condition and In treatment Depression Screening Done: Yes 30921 - PHQ-9 Billing: Yes Source: Developed by Drs. Joaquin Tirado, Leona Craig, Rigo Parks and colleagues, with an educational rai from [employer]. Thrive Questionnaire Date Thrive assessed: 04/25/23 I am a: Patient What is your living situation today?: I have a steady place to live Within the past 12 months, did the food you bought not last and you didn't have the money to get more?: Never true Within the past 12 months, did you worry whether your food would run out before you got money to buy more?: Never true Do you have trouble paying for medicines?: No Do you have trouble getting transportation to medical appointments?: No Do you have trouble paying your heating and electricity bill?: No Do you have trouble taking care of your child, family member or friend?: No Do you have trouble with day-to-day activities such as bathing, preparing meals, shopping, managing finances, etc.?: No Are you currently unemployed and looking for a job?: No Are you interested in more education?: No Please select the resources that you would like help with: None Currently or been in a relationship where the following occur: no concerns reported AUDIT C Alcohol Use Questionnaire (AUDIT-C) 1. How often do you have a drink containing alcohol?: Never Total Score: 0 Score Reviewed/Action Taken: Yes ARELIS-7 AMB Questionnaire ARELIS-7 Date ARELIS - 7 assessed: 04/25/23 Feeling nervous, anxious, or on edge: 0 = Not at all Not being able to stop or control worryin = Not at all Worrying too much about different things: 0 = Not at all Trouble relaxin = Not at all Being so restless that it is hard to sit still: 0 = Not at all Becoming easily annoyed or irritable: 0 = Not at all Feeling afraid as if something awful might happen: 0 = Not at all Total ARELIS-7 score (0-4 normal; 5-9 mild; 10-14 moderate; 15-21 severe): 0 Source: Developed by Drs. Joaquin Tirado, Leona Craig, Rigo Parks and colleagues, with an educational rai from [employer]. Review of Systems Const Denies chills, Reports fatigue, Denies fever(s) and Denies headache(s) ENT Denies dysphagia, Denies dizziness, Denies otalgia, Denies headache(s), Denies neck pain, Denies odynophagia and Denies sore throat Card Denies chest pain, Denies palpitations and Denies dyspnea Resp Denies cough and Denies dyspnea GI Reports abdominal pain (over the left side, especially the LLQ area), Denies hematochezia, Denies change in bowel habits (but reports increased left-sided abdominal pain during bowel movements), Denies dysphagia, Denies heartburn, Denies diarrhea, Reports nausea (on and off), Denies odynophagia and Denies vomiting Denies dysuria, Denies nocturia and Denies urinary frequency Musc Denies neck pain Skin/Breast Denies rash Neuro Denies dizziness and Denies headache(s) Endo Reports fatigue and Denies palpitations Physical exam (Primary Care) Vital Signs: Last Vital Signs Pulse 80 04/25/23 14:01 BP 120/80 04/25/23 14:01 Pulse Ox 96 04/25/23 14:01 Oxygen Delivery Method Room Air 04/25/23 14:01 BMI result Body Mass Index 32.4 Tobacco/Smoking Status: Tobacco use Status Tobacco use date assessed 04/25/23 04/25/23 14:08 Patient Tobacco Use Status Current everyday Tobacco 04/25/23 14:08 Tobacco use type Cigarette 04/25/23 14:08 e-Cigarette/Vaping Use Never Used 10/30/23 14:08 PHQ-9: PHQ-9 Score PHQ-9: Total score 12 04/25/23 14:08 Depression Screening Interpretation: Positive Depression Screening Follow-up: Existing condition and In treatment Thrive Assessment: Date of Thrive Assessment Date Thrive assessed 04/25/23 04/25/23 14:08 Currently or been in a relationship where the following occur: no concerns reported Const General: no acute distress and alert HENMT Throat: Yes posterior oropharynx normal and Yes tonsils normal (no TP congestion) Neck Neck: Yes no lymphadenopathy and Yes supple Resp Auscultation: clear to auscultation bilaterally, no rales and no wheezes Cardio Rate: regular rate Rhythm: regular rhythm Heart sounds: no murmurs GI Palpation (GI): Soft to palpation, Tenderness to palpation present (GI) in the LLQ, no guarding, not rigid and Rebound tenderness present (mild) Skin General skin exam: no rashes or lesions noted Extrem General: Yes no clubbing, cyanosis or edema Assessment and Plan Assessment & Plan (1) Diverticulitis: Code(s): K57.92 - Diverticulitis of intestine, part unspecified, without perforation or abscess without bleeding Plan: Abdominal and pelvic CT done revealed (+) subtle area of pericolonic streaky changes in the mid descending colon on the left that may represent extremely subtle early diverticulitis Will send patient for some labs (CBC, ESR, chem profile) RIAN for further evaluation Will switch him from Augmentin (which does not seem to be helping at all) over to Cipro 500 mg BID x 7 days and Metronidazole 500 mg TID x 7 days Will provide him with a small amount of Oxycodone 5 mg to take BID PRN for severe pain, #6 tablets - is advised that completely masking the abdominal pain is not advisable as we would not be able to tell if he is responding to his current Tx or not if his pain is completely masked up by pain meds Will also make out an urgent referral for him to see GI for further evaluation and management, especially if he still does not respond to the current Abx (Cipro + Flagyl) that he is being switched over to Plan Follow up with PCP as scheduled in August 2023 and PRN Orders: Orders Complete Blood Count Auto Diff Today K57.92 - Diverticulitis of intestine, part unspecified, without perforation or abscess without bleeding, R10.9 - Unspecified abdominal pain Comprehensive Met. Panel Today K57.92 - Diverticulitis of intestine, part unspecified, without perforation or abscess without bleeding, R10.9 - Unspecified abdominal pain Erythrocyte Sedimentation Rate Today K57.92 - Diverticulitis of intestine, part unspecified, without perforation or abscess without bleeding, R10.9 - Unspecified abdominal pain Referrals Gastroenterology Referral K57.92 - Diverticulitis of intestine, part unspecified, without perforation or abscess without bleeding, R10.9 - Unspecified abdominal pain Medications: New ciprofloxacin HCl 500 mg PO BID 7 days 14 tabs 0RF metronidazole 500 mg PO TID 7 days 21 tabs 0RF Changed From oxycodone Partial Fill upon patient request. 5 mg PO Q8H PRN 10 tabs 0RF pain To oxycodone Partial Fill upon patient request. 5 mg PO BID PRN 6 tabs 0RF pain Coding Level of Care Code Est Pt Level 4 (69086) Diagnoses Diverticulitis K57.92
[2023-04-25 14:01] VITALS: BP 120/80; PULSE 80; O2SAT 96; BMI 32.4
== END 2023-04-25 14:58 | disposition home or self-care (01) ==
PROVIDERS: PCP Internal Medicine; Visit Provider Internal Medicine
DX: K57.92 Diverticulitis of intestine, part unspecified, without perforation or abscess without bleeding (principal)
CPT/HCPCS: 99214

== ENCOUNTER 2023-04-25 14:35 | Outpatient (REF) | payer MEDICARE, MEDICAID, SELFPAY ==
[2023-04-25 14:45] LABS: MANUAL DIFF FLAG NO
[2023-04-25 15:22] LABS: Basophils Absolute Auto 0.1 X10*3/uL (0.0-0.2); Basophils Percent Auto 0.6 % (0-2); Eosinophils Absolute Auto 0.8 X10*3/uL (0.0-0.4); Hematocrit 41.8 % (42.0-52.0); Hemoglobin 13.7 g/dl (14.0-18.0); Imm Gran Abs Auto 0.07 X10*3/uL (0.00-0.03); Imm Gran Pct Auto 0.5 % (0.0-0.4); Lymphocytes Absolute Auto 4.7 X10*3/uL (1.2-4.9); Lymphocytes Percent Auto 33.7 % (20-40); Mean Corpuscular HGB Conc 32.8 g/dl (31.0-36.0); Mean Corpuscular Hemoglobin 30.4 pg (27.0-33.0); Mean Corpuscular Volume 92.7 fL (80.0-98.0); Mean Platelet Volume 9.1 fL (9.4-12.4); Monocytes Percent Auto 7.3 % (2-11); Neutrophils Absolute Auto 7.2 x10*3/uL (2.0-8.3); Neutrophils Percent Auto 51.9 % (45-73); Platelet Count 319 X10*3/uL (160-400); Red Blood Count 4.51 X10*6/uL (4.60-5.80); Red Cell Distribution Width 13.2 % (11.0-16.0); White Blood Count 13.9 X10*3/uL (4.8-10.8)
[2023-04-25 15:46] LABS: Alanine Aminotransferase 23 U/L (0-40); Albumin Level 4.6 g/dL (3.5-5.0); Alkaline Phosphatase 98 U/L (39-117); Anion Gap 14 (12-20); Aspartate Amino Transferase 16 U/L (5-37); Bilirubin Total 0.5 mg/dL (0.0-1.0); Blood Urea Nitrogen 11 mg/dL (9-16); Carbon Dioxide 27 mmol/L (22-29); Chloride 101 mmol/L (96-108); Estimated Glomerular Filt Rate > 60; Glucose Random 85 mg/dL (60-115); Potassium 4.2 mmol/L (3.3-5.1); Sodium 138 mmol/L (135-145); Total Protein 7.8 g/dL (6.5-8.0)
[2023-04-25 16:03] LABS: Erythrocyte Sedimentation Rate 23 MM/HR (0-15)
== END 2023-04-25 14:36 | disposition home or self-care (01) ==
LOC: HO.LAB 14:35
PROVIDERS: PCP Internal Medicine; Visit Provider Internal Medicine
DX: K57.92 Diverticulitis of intestine, part unspecified, without perforation or abscess without bleeding (principal); R10.9 Unspecified abdominal pain
CPT/HCPCS: 36415; 80053; 85025; 85652

== ENCOUNTER 2023-08-22 09:24 | Outpatient (AMB) | payer MEDICARE, MEDICAID, SELFPAY ==
--- NOTE | 2023-08-22 09:45 | MHC.OFFVIS ---
Intake Intake Visit Reasons: New Prob - B/L knee pain Intake Note: Yogesh is a 67 year old Burkinan male who presents today for a evaluation for his bilateral knee pain. Hx of right TKA 01/14/15; Left TKA 10/10/15 both done with NE. Currently having dome dull pain in both of the knee which started about 2 months. He states that his right knee is worse than the left knee. He states that he would like to know what he can do to relief his pain. Allergies No Known Allergies [No Known Allergies*] Allergy (Verified 08/22/23 09:48) HPI New Prob - B/L knee pain HPI Details 67-year-old male, who is Burkinan speaking, presents in the office today for an evaluation of bilateral knee pain. While in the office today the patient reports having dull pain in his bilateral knees which began about 2 months ago. He states his right knee is worse then his left knee. He would like to discuss pain relief treatment. Patient has a surgical history of right total knee arthroplasty on 01/14/2015 and left total knee arthroplasty on 10/10/[address] Bauer. [facility] Medical History ARELIS (generalized anxiety disorder) Knee pain Mild persistent asthma, uncomplicated Mild recurrent major depression Hearing loss Physical exam Obese Pure hypercholesterolemia Insomnia Surgical History H/O colonoscopy History of knee replacement procedure of right knee History of knee replacement procedure of left knee Family History Father Pancreatic cancer Mother Chronic mental illness Diabetes Hypertension Stroke Sister Cancer Family/Other Chronic mental illness Social History Household Members: Children Housing: Condominium Are you a primary caregivers non medical to a significant other at home: No Do you presently have visiting nurse or other home services: No Alcohol intake: former Patient Tobacco Use Status: Current everyday Tobacco user Tobacco use type: Cigarette Cigarette Packs Per Day: 1 e-Cigarette/Vaping Use: Never Used Second Hand Smoke Exposure: No service: No Current occupational status: disabled Cognitive needs: No Hearing needs: No Vision needs: No Review of Systems Const All systems reviewed & are unremarkable except as noted in HPI and below Physical Exam Const General: cooperative, healthy appearing and no acute distress Resp Effort & Inspection: normal respiratory effort and able to speak in complete sentences Cardio Rate: regular rate Peripheral pulses: Peripheral pulses 2+ throughout GI Palpation (GI): Soft to palpation Skin Lesions: no lesions Rashes: no rashes Extrem Other: Bilateral knees: Bilateral total knee arthroplasty incision site are noted. Normal to inspection. No ecchymosis, erythema, or joint effusion. Slight tenderness to palpation to the medial or lateral joint lines, bilaterally. Full knee extension and flexion. No laxity with varus or valgus stress. NVI. Assessment & Plan Assessment & Plan (1) Left knee pain: Code(s): M25.562 - Pain in left knee Qualifiers: Chronicity: unspecified Qualified Code(s): M25.562 - Pain in left knee (2) Right knee pain: Code(s): M25.561 - Pain in right knee Qualifiers: Chronicity: unspecified Qualified Code(s): M25.561 - Pain in right knee (3) History of arthroplasty of left knee: Onset Date: ~10/10/15 Comment: Dr. Jerry Bauer Code(s): Z96.652 - Presence of left artificial knee joint (4) History of arthroplasty of right knee: Onset Date: ~01/14/15 Comment: Dr. Jerry Bauer Code(s): Z96.651 - Presence of right artificial knee joint Plan Mr. Forest Singer is a 67-year-old male, who is Burkinan speaking, presents in the office today for an evaluation of bilateral knee pain. While in the office today the patient reports having dull pain in his bilateral knees which began about 2 months ago. He states his right knee is worse then his left knee. He would like to discuss pain relief treatment. Patient has a surgical history of right total knee arthroplasty on 01/14/2015 and left total knee arthroplasty on 10/10/[address] Bauer. A referral for the patient to attend physical therapy was placed while in the office. Follow up will be in 6-8 weeks with me while Dr. Bauer is in the office. X-rays of the bilateral knees which were obtained while in the office today and were reviewed by me, Nohemy Kimberly PA-C, revealed no acute fracture or dislocation. Total knee arthroplasties present in both knees with no evidence of hardware loosening. Orders: Orders XR knee LT 2V Today M25.569 - Pain in unspecified knee XR knee standing BI Today M25.569 - Pain in unspecified knee XR knee RT 2V Today M25.569 - Pain in unspecified knee Patient Instructions: Scribed by Barbra Iyer medical physics teacher, for Nohemy Harris PA-C on 08/22/2023 at 9:28 am, EST. Coding Level of Care Code Est Pt Level 4 (37034) Diagnoses Left knee pain, unspecified chronicity M25.562 Chronicity: unspecified Right knee pain, unspecified chronicity M25.561 Chronicity: unspecified History of arthroplasty of left knee Z96.652 History of arthroplasty of right knee Z96.651
== END 2023-08-22 10:01 | disposition home or self-care (01) ==
PROVIDERS: PCP Internal Medicine; Visit Provider Physician Assistant
DX: M25.562 Pain in left knee (principal); M25.561 Pain in right knee; Z96.653 Presence of artificial knee joint, bilateral
CPT/HCPCS: 99214

== ENCOUNTER 2023-08-22 09:24 | Outpatient (REF) | payer MEDICARE, MEDICAID, SELFPAY ==
--- NOTE | ~2023-08-22 | XR_ITS ---
EXAMINATION: XR BILATERAL KNEE STANDING XR KNEE, RIGHT XR KNEE, LEFT CLINICAL INFORMATION: Pain in unspecified knee. COMPARISON: Radiographs dated 09/24/2021 bilateral knees. Radiographs 03/09/2023 left knee. TECHNIQUE: AP standing, lateral and sunrise views of each knee. FINDINGS: LEFT KNEE: Redemonstration of total knee arthroplasty. Hardware appears intact. Alignment preserved. Small joint effusion. RIGHT KNEE: Status post right total arthroplasty. Hardware appears intact. Alignment is preserved. Small joint effusion. XR/XR knee standing BI IMPRESSION: Status post bilateral total knee arthroplasties. Hardware appears intact. Alignment preserved.
--- NOTE | ~2023-08-22 | XR_ITS ---
EXAMINATION: XR BILATERAL KNEE STANDING XR KNEE, RIGHT XR KNEE, LEFT CLINICAL INFORMATION: Pain in unspecified knee. COMPARISON: Radiographs dated 09/24/2021 bilateral knees. Radiographs 03/09/2023 left knee. TECHNIQUE: AP standing, lateral and sunrise views of each knee. FINDINGS: LEFT KNEE: Redemonstration of total knee arthroplasty. Hardware appears intact. Alignment preserved. Small joint effusion. RIGHT KNEE: Status post right total arthroplasty. Hardware appears intact. Alignment is preserved. Small joint effusion. XR/XR knee LT 2V IMPRESSION: Status post bilateral total knee arthroplasties. Hardware appears intact. Alignment preserved.
--- NOTE | ~2023-08-22 | XR_ITS ---
EXAMINATION: XR BILATERAL KNEE STANDING XR KNEE, RIGHT XR KNEE, LEFT CLINICAL INFORMATION: Pain in unspecified knee. COMPARISON: Radiographs dated 09/24/2021 bilateral knees. Radiographs 03/09/2023 left knee. TECHNIQUE: AP standing, lateral and sunrise views of each knee. FINDINGS: LEFT KNEE: Redemonstration of total knee arthroplasty. Hardware appears intact. Alignment preserved. Small joint effusion. RIGHT KNEE: Status post right total arthroplasty. Hardware appears intact. Alignment is preserved. Small joint effusion. XR/XR knee RT 2V IMPRESSION: Status post bilateral total knee arthroplasties. Hardware appears intact. Alignment preserved.
== END 2023-08-22 09:25 | disposition home or self-care (01) ==
LOC: HO.HOSX 09:24
PROVIDERS: PCP Internal Medicine; Visit Provider Physician Assistant
DX: T84.84XA Pain due to internal orthopedic prosthetic devices, implants and grafts, initial encounter (principal); Z96.653 Presence of artificial knee joint, bilateral
CPT/HCPCS: 73560; 73565; 99212

== ENCOUNTER 2023-08-23 15:25 | Outpatient (REF) | payer MEDICARE, MEDICAID, SELFPAY | END 2023-08-23 15:26 | disposition home or self-care (01) | LOC: HO.HOSX 15:25 | PROVIDERS: Visit Provider Physician Assistant | DX: Z13.89 Encounter for screening for other disorder (principal) ==

== ENCOUNTER 2023-08-30 09:42 | Outpatient (AMB) | payer OTHER, SELFPAY ==
--- NOTE | 2023-08-30 09:46 | A.OFFPC_ITS ---
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 Accompanied by: Daughter Allergies No Known Allergies [No Known Allergies*] Allergy (Verified 08/30/23 10:10) Medication List - Last Reconciled 08/30/23 by Yulia Montoya MD atorvastatin 80 mg PO BEDTIME 90 days blood sugar diagnostic (FreeStyle Lite Strips) Use 1 test strip once a day blood-glucose meter (FreeStyle Lite Meter kit) As directed lancets (FreeStyle Lancets) Use 1 lancet once a day metformin 500 mg PO DAILY 90 days mometasone-formoterol 50-5 mcg/actuation (Dulera) 2 puffs inhalation Q12H 30 days ondansetron 4 mg PO Q8H PRN sertraline 25 mg PO DAILY 90 days Ventolin HFA 90 mcg/actuation (albuterol sulfate) 2 puffs inhalation Q6H PRN 30 days NS Tobacco use date assessed: 08/30/23 Fall risk assessment: No Falls in past year Last assessed Fall Risk: 08/30/23 Dental Screening Dental Screen Date: 08/30/23 Did you have a dental visit in the last 12 months?: No Did you have a dental problem in the last 6 months where you did not have access to dental care?: No Was dental information given to patient?: Patient has dentist HPI HPI Comments History of Present Illness Details This is a 68-year-old male with diabetes mellitus type 2, COPD, mild recurrent major depression and mixed hyperlipidemia that comes accompanied by daughter for follow-up on his conditions. A1c within goal but he is complaining about abdominal discomfort most likely due to dyspepsia and I want to replace metformin due to metformin causing abdominal pain. Will start him on Jardiance. COPD has been stable and use rescue inhaler once a month. Follow by pul monology. Has mild major depression and declines any counseling but is willing to start a higher dose of sertraline. He is LDL goal should be less than 70 and lipid panel will be ordered. He is compliant with medications. Still a smoker and was advised to quit. As per patient colonoscopy should be 2024. [facility] Medical History (Updated 08/30/23 @ 10:51 by Yulia Montoya MD) Moderate persistent asthma ARELIS (generalized anxiety disorder) Knee pain Mild persistent asthma, uncomplicated Mild recurrent major depression Hearing loss Physical exam Obese Pure hypercholesterolemia Insomnia Surgical History H/O colonoscopy History of knee replacement procedure of right knee History of knee replacement procedure of left knee Family History Father Pancreatic cancer Mother Chronic mental illness Diabetes Hypertension Stroke Sister Cancer Family/Other Chronic mental illness Social History Household Members: Children [facility] Are you a primary adult live in caregiver to a significant other at home: No Do you presently have visiting nurse or other home services: No Alcohol intake: former Patient Tobacco Use Status: Current everyday Tobacco user Tobacco use type: Cigarette Cigarette Packs Per Day: 1 e-Cigarette/Vaping Use: Never Used Second Hand Smoke Exposure: No service: No Current occupational status: disabled Cognitive needs: No Hearing needs: No Vision needs: Yes Questionnaire PHQ-9 Over the last 2 weeks, how often have you been bothered by any of the following problems? 1. Little interest or pleasure in doing things: several days 2. Feeling down, depressed, or hopeless: several days 3. Trouble falling or staying asleep, or sleeping too much: nearly every day 4. Feeling tired or having little energy: nearly every day 5. Poor appetite or overeating: more than half the days 6. Feeling bad about yourself - or that you are a failure or have let yourself or your family down: several days 7. Trouble concentrating on things, such as reading the newspaper or watching television: nearly every day 8. Moving or speaking so slowly that other people could have noticed. Or the opposite - being so fidgety or restless that you have been moving around a lot more than usual: nearly every day 9. Thoughts that you would be better off or of hurting yourself in some way: not at all Total score: 17 Depression Screening Interpretation: Positive (no suicidal thoughts) Depression Screening Follow-up: Existing condition and In treatment Depression Screening Done: Yes 34939 - PHQ-9 Billing: Yes Source: Developed by Drs. Joaquin Tirado, Leona Craig, Rigo Parks and colleagues, with an educational rai from [employer]. Thrive Questionnaire Date Thrive assessed: 08/30/23 I am a: Patient What is your living situation today?: I have a steady place to live Within the past 12 months, did the food you bought not last and you didn't have the money to get more?: Never true Within the past 12 months, did you worry whether your food would run out before you got money to buy more?: Never true Do you have trouble paying for medicines?: No Do you have trouble getting transportation to medical appointments?: No Do you have trouble paying your heating and electricity bill?: No Do you have trouble taking care of your child, family member or friend?: No Do you have trouble with day-to-day activities such as bathing, preparing meals, shopping, managing finances, etc.?: Yes Are you currently unemployed and looking for a job?: No Are you interested in more education?: No Please select the resources that you would like help with: None Currently or been in a relationship where the following occur: no concerns reported THRIVE Score: 0 AUDIT C Alcohol Use Questionnaire (AUDIT-C) 1. How often do you have a drink containing alcohol?: Never Total Score: 0 Score Reviewed/Action Taken: No ARELIS-7 AMB Questionnaire ARELIS-7 Date ARELIS - 7 assessed: 08/30/23 Feeling nervous, anxious, or on edge: 3 = Nearly every day Not being able to stop or control worryin = Several days Worrying too much about different things: 3 = Nearly every day Trouble relaxin = Nearly every day Being so restless that it is hard to sit still: 3 = Nearly every day Becoming easily annoyed or irritable: 3 = Nearly every day Feeling afraid as if something awful might happen: 3 = Nearly every day Total ARELIS-7 score (0-4 normal; 5-9 mild; 10-14 moderate; 15-21 severe): 19 Source: Developed by Drs. Joaquin Tirado, Leona Craig, Rigo Parks and colleagues, with an educational rai from [employer]. ARELIS-7 Assessment Billing ARELIS-7 Assessment Tool: ARELIS-7 Assessment 55460 Review of Systems Const All systems reviewed & are unremarkable except as noted in HPI and below Eyes Reports no additional complaints, Denies change in vision and Denies other visual disturbances Card Denies chest pain at rest, Denies chest pain with activity, Denies edema, Denies irregular heart rhythm, Denies claudication, Denies dyspnea, Denies dyspnea on exertion, Denies orthopnea, Denies paroxysmal nocturnal dyspnea and Denies slow heart rate Resp Denies cough, Denies dyspnea and Denies dyspnea on exertion GI Reports abdominal pain, Denies change in bowel habits, Denies excessive flatus, Denies nausea and Denies vomiting Denies urinary hesitancy, Denies urinary incontinence and Denies urinary urgency Musc Denies abnormal gait, Denies atrophy, Denies deformity and Denies limited range of motion Skin/Breast Denies bleeding lesions, Denies changing lesions and Denies rash Neuro Denies abnormal gait, Denies behavioral changes and Denies lack of coordination Psych Denies behavioral changes Physical exam (Primary Care) Vital Signs: Last Vital Signs BP 112/70 08/30/23 09:47 BMI result Body Mass Index 32.5 Tobacco/Smoking Status: Tobacco use Status Tobacco use date assessed 08/30/23 08/30/23 09:54 Patient Tobacco Use Status Current everyday Tobacco 08/30/23 09:54 Tobacco use type Cigarette 08/30/23 09:54 e-Cigarette/Vaping Use Never Used 08/30/23 09:54 PHQ-9: PHQ-9 Score PHQ-9: Total score 17 08/30/23 10:17 Depression Screening Interpretation: Positive (no suicidal thoughts) Depression Screening Follow-up: Existing condition and In treatment Thrive Assessment: Date of Thrive Assessment Date Thrive assessed 08/30/23 08/30/23 09:54 Currently or been in a relationship where the following occur: no concerns reported Eyes General: appearance normal, both eyes and all related structures Eyelids: Yes eyelids normal Conjunctivae: conjunctivae normal Neck Neck: Yes normal visual inspection and Yes supple Resp Effort & Inspection: normal respiratory effort Auscultation: clear to auscultation bilaterally Cardio Jugular venous distension: no JVD Rate: regular rate Rhythm: regular rhythm Heart sounds: S1 normal heart sound present and S2 normal heart sound present Extrem General: Yes full ROM Results AMB Hemoglobin A1c AMB Hemoglobin A1c 6.9 % Last Edit by LAM August on 08/30/23 10:0 9 Results Reviewed Results Reviewed: Laboratory Last Values Hgb A1c (Clinic) 6.9 % (4.0-6.0) H 08/30/23 10:08 Assessment and Plan Assessment & Plan (1) COPD (chronic obstructive pulmonary disease): Code(s): J44.9 - Chronic obstructive pulmonary disease, unspecified Plan: Continue long-acting inhaler. Use rescue inhaler as needed. (2) Diabetes mellitus: Code(s): E11.9 - Type 2 diabetes mellitus without complications Plan: Discontinue metformin. Start Jardiance. A1c goal is equal or less than 7%. (3) Mild recurrent major depression: Code(s): F33.0 - Major depressive disorder, recurrent, mild Plan: Increase sertraline to 50 mg. Patient declines counseling referral. (4) Mixed hyperlipidemia: Code(s): E78.2 - Mixed hyperlipidemia Plan: Continue statins. Repeat lipid panel. LDL goal is less than 70. Orders: Orders Lipid Panel 5 Months E78.5 - Hyperlipidemia, unspecified Comprehensive [place]. Panel Fast 5 Months E11.9 - Type 2 diabetes mellitus without complications AMB Hemoglobin A1c Today E11.9 - Type 2 diabetes mellitus without complications Microalbumin, Random (w Creat) 5 Months E11.9 - Type 2 diabetes mellitus without complications Medications: New empagliflozin (Jardiance) 10 mg PO DAILY 90 days 90 tabs 1RF E11.9 - Type 2 diabetes mellitus without complications sertraline 50 mg PO DAILY 90 days 90 tabs 1RF dicyclomine 20 mg PO TID 30 days 90 tabs 0RF Refilled atorvastatin 80 mg PO BEDTIME 90 days 90 tabs 1RF mometasone-formoterol 50-5 mcg/actuation (Dulera) 2 puffs inhalation Q12H 30 days 13 grams 6RF J44.9 - Chronic obstructive pulmonary disease, unspecified Ventolin HFA 90 mcg/actuation (albuterol sulfate) 2 puffs inhalation Q6H 30 days PRN 8 grams 2RF shortness of breath or wheezing NS J44.9 - Chronic obstructive pulmonary disease, unspecified Discontinued sertraline Discontinued Reason: No Longer Medically Relevant 25 mg PO DAILY 90 days 90 tabs 1RF F33.0 - Major depressive disorder, recurrent, mild metformin Discontinued Reason: No Longer Medically Relevant 500 mg PO DAILY 90 days 90 tabs 1RF E11.9 - Type 2 diabetes mellitus without complications Coding Level of Care Code Est Pt Level 4 (02711) Diagnoses COPD (chronic obstructive pulmonary disease) J44.9 Diabetes mellitus E11.9 Mild recurrent major depression F33.0 Mixed hyperlipidemia E78.2 Additional Codes ARELIS-7 Assessment Billing - ARELIS-7 Assessment Tool: ARELIS-7 Assessment 19923 ([id number]) Time Spent (min) 24
[2023-08-30 09:47] VITALS: BP 112/70; BMI 32.5
== END 2023-08-30 10:31 | disposition home or self-care (01) ==
PROVIDERS: PCP Internal Medicine; Visit Provider Internal Medicine
DX: E11.9 Type 2 diabetes mellitus without complications (principal); J44.9 Chronic obstructive pulmonary disease, unspecified; F33.0 Major depressive disorder, recurrent, mild; E78.2 Mixed hyperlipidemia
CPT/HCPCS: 83036; 99214

== ENCOUNTER 2024-01-30 09:50 | Outpatient (AMB) | payer OTHER, SELFPAY ==
--- NOTE | 2024-01-30 09:57 | MHC.PC.OV ---
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 Accompanied by: Daughter Allergies No Known Allergies [No Known Allergies*] Allergy (Verified 01/30/24 10:05) Medication List - Last Reconciled 01/30/24 by Yulia Montoya MD atorvastatin 80 mg PO BEDTIME 90 days blood sugar diagnostic (FreeStyle Lite Strips) Use 1 test strip once a day blood-glucose meter (FreeStyle Lite Meter kit) As directed dicyclomine 20 mg PO TID 30 days empagliflozin (Jardiance) 10 mg PO DAILY 90 days lancets (FreeStyle Lancets) Use 1 lancet once a day mometasone-formoterol 50-5 mcg/actuation (Dulera) 2 puffs inhalation Q12H 30 days ondansetron 4 mg PO Q8H PRN sertraline 50 mg PO DAILY 90 days Ventolin HFA 90 mcg/actuation (albuterol sulfate) 2 puffs inhalation Q6H PRN 30 days NS Tobacco use date assessed: 08/30/23 Fall risk assessment: No Falls in past year Last assessed Fall Risk: 01/30/24 Dental Screening Dental Screen Date: 08/30/23 HPI HPI Comments History of Present Illness Details This is a 68-year-old male with diabetes mellitus type 2, COPD, mixed hyperlipidemia and mild recurrent major depression that comes today accompanied by daughter complaining of hearing loss and I will refer him for a hearing test. A1c within goal. On long-acting inhaler for his COPD and he would want another referral for pulmonology. Was advised to quit smoking and will start nicotine patch soon. Aware that he can not wear the nicotine patch while smoking. Depression stable with sertraline. Lipid panel will be order and his LDL goal should be less than 70. Denies any chest pain or shortness on breath. [facility] Medical History (Updated 01/30/24 @ 11:58 by Yulia Montoya MD) Moderate persistent asthma ARELIS (generalized anxiety disorder) Knee pain Mild persistent asthma, uncomplicated Mild recurrent major depression Hearing loss Physical exam Obese Pure hypercholesterolemia Insomnia Surgical History H/O colonoscopy History of knee replacement procedure of right knee History of knee replacement procedure of left knee Family History Father Pancreatic cancer Mother Chronic mental illness Diabetes Hypertension Stroke Sister Cancer Family/Other Chronic mental illness Social History Household Members: Children [facility] Are you a primary critical care rn to a significant other at home: No Do you presently have visiting nurse or other home services: No Alcohol intake: former Patient Tobacco Use Status: Current everyday Tobacco user Tobacco use type: Cigarette Cigarette Packs Per Day: 1 e-Cigarette/Vaping Use: Never Used Second Hand Smoke Exposure: No service: No Current occupational status: disabled Cognitive needs: No Hearing needs: No Vision needs: Yes Questionnaire Thrive Questionnaire Date Thrive assessed: 08/30/23 ARELIS-7 AMB Questionnaire ARELIS-7 Date ARELIS - 7 assessed: 08/30/23 Source: Developed by Drs. Joaquin Tirado, Leona Craig, Rigo Parks and colleagues, with an educational rai from [employer]. Review of Systems Const All systems reviewed & are unremarkable except as noted in HPI and below Card Denies chest pain at rest, Denies chest pain with activity, Denies edema, Denies irregular heart rhythm, Denies claudication, Denies dyspnea, Denies dyspnea on exertion, Denies orthopnea, Denies paroxysmal nocturnal dyspnea and Denies slow heart rate Resp Denies cough, Denies dyspnea and Denies dyspnea on exertion GI Denies abdominal pain, Denies change in bowel habits, Denies excessive flatus, Denies nausea and Denies vomiting Denies urinary hesitancy, Denies urinary incontinence and Denies urinary urgency Physical exam (Primary Care) Vital Signs: Last Vital Signs Pulse 84 01/30/24 10:03 BP 120/70 01/30/24 10:03 Pulse Ox 95 01/30/24 10:03 Oxygen Delivery Method Room Air 01/30/24 10:03 BMI result Body Mass Index 31.6 BMI Assessment/Plan discussion: High BMI High, discussed plan: lifestyle, weight reduction, dietary and physical activity Tobacco/Smoking Status: Tobacco use Status Tobacco use date assessed 08/30/23 01/30/24 09:58 Patient Tobacco Use Status Current everyday Tobacco 01/30/24 09:58 Tobacco use type Cigarette 01/30/24 09:58 e-Cigarette/Vaping Use Never Used 01/30/24 09:58 Are you ready to quit: Yes Tobacco cessation counseling provided: Yes Items discussed: Nicotine replacement and QuitWorks Relapse Prevention: discussed the importance of a supportive environment, discussed extending NRT, discussed negative mood or depression after quitting, weight gain after smoking is common and discussed dietary, exercise and/or lifestyle changes Number of minutes spent counselin CPT code: 50582 - 4-10 Minutes Thrive Assessment: Date of Thrive Assessment Date Thrive assessed 08/30/23 01/30/24 09:58 Resp Effort & Inspection: normal respiratory effort Auscultation: clear to auscultation bilaterally Cardio Jugular venous distension: no JVD Rate: regular rate Rhythm: regular rhythm Heart sounds: S1 normal heart sound present and S2 normal heart sound present Extrem General: Yes full ROM Results AMB Hemoglobin A1c AMB Hemoglobin A1c 6.8 % Last Edit by GINA Cosme on 01/30/24 10:19 Results Reviewed Results Reviewed: Laboratory Last Values Hgb A1c (Clinic) 6.8 % (4.0-6.0) H 01/30/24 10:04 Assessment and Plan Assessment & Plan (1) COPD (chronic obstructive pulmonary disease): Code(s): J44.9 - Chronic obstructive pulmonary disease, unspecified Plan: Continue long-acting inhaler. Use rescue inhaler as needed. Referred to pulmonology. (2) Diabetes mellitus: Code(s): E11.9 - Type 2 diabetes mellitus without complications Qualifiers: Diabetes mellitus type: type 2 Diabetes mellitus long-term insulin use: without long-term use Diabetes mellitus complication status: without complication Qualified Code(s): E11.9 - Type 2 diabetes mellitus without complications Plan: Continue Jardiance. A1c goal is equal or less than 7%. (3) Mixed hyperlipidemia: Code(s): E78.2 - Mixed hyperlipidemia Plan: Continue statins and fibrates. LDL goal is less than 70. (4) Mild recurrent major depression: Code(s): F33.0 - Major depressive disorder, recurrent, mild Plan: Continue sertraline. (5) Hearing loss: Code(s): H91.90 - Unspecified hearing loss, unspecified ear Qualifiers: Hearing loss type: unspecified Laterality: bilateral Qualified Code(s): H91.93 - Unspecified hearing loss, bilateral Plan: Hearing test ordered. Orders: Orders AMB Hemoglobin A1c Today E11.9 - Type 2 diabetes mellitus without complications Complete Blood Count Auto Diff Today D64.9 - Anemia, unspecified IRON PROFILE Today D64.9 - Anemia, unspecified Vitamin D 25-OH Total Today E55.9 - Vitamin D deficiency, unspecified Referrals Speech and Hearing Referral H91.90 - Unspecified hearing loss, unspecified ear Pulmonology Referral J44.9 - Chronic obstructive pulmonary disease, unspecified Podiatry Referral E11.9 - Type 2 diabetes mellitus without complications Medications: New nicotine 1 patch transdermal DAILY 28 days 28 ea 0RF Refilled atorvastatin 80 mg PO BEDTIME 90 days 90 tabs 1RF J44.9 - Chronic obstructive pulmonary disease, unspecified empagliflozin (Jardiance) 10 mg PO DAILY 90 days 90 tabs 1RF E11.9 - Type 2 diabetes mellitus without complications dicyclomine 20 mg PO TID 30 days 90 tabs 0RF Coding Level of Care Code Est Pt Level 4 (97600) Complex EM visit Add On G2211 Diagnoses COPD (chronic obstructive pulmonary disease) J44.9 Type 2 diabetes mellitus without complication, without long-term current use of insulin E11.9 Diabetes mellitus type: type 2 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
[2024-01-30 10:03] VITALS: BP 120/70; PULSE 84; O2SAT 95; BMI 31.6
== END 2024-01-30 10:29 | disposition home or self-care (01) ==
PROVIDERS: PCP Internal Medicine; Visit Provider Internal Medicine
DX: J44.9 Chronic obstructive pulmonary disease, unspecified (principal); E11.9 Type 2 diabetes mellitus without complications; E78.2 Mixed hyperlipidemia; F33.0 Major depressive disorder, recurrent, mild; H91.93 Unspecified hearing loss, bilateral
CPT/HCPCS: 83036; 99214; 99406; G2211

== ENCOUNTER 2024-02-15 09:15 | Outpatient (REF) | payer OTHER, SELFPAY ==
[2024-02-15 09:51] LABS: MANUAL DIFF FLAG NO
[2024-02-15 11:17] LABS: Basophils Absolute Auto 0.1 X10*3/uL (0.0-0.2); Basophils Percent Auto 0.8 % (0-2); Eosinophils Absolute Auto 0.3 X10*3/uL (0.0-0.4); Eosinophils Percent Auto 2.6 % (0-4); Hematocrit 40.3 % (42.0-52.0); Imm Gran Abs Auto 0.05 X10*3/uL (0.00-0.03); Imm Gran Pct Auto 0.5 % (0.0-0.4); Lymphocytes Absolute Auto 3.3 X10*3/uL (1.2-4.9); Lymphocytes Percent Auto 32.3 % (20-40); Mean Corpuscular HGB Conc 32.3 g/dl (31.0-36.0); Mean Corpuscular Hemoglobin 29.7 pg (27.0-33.0); Mean Platelet Volume 9.6 fL (9.4-12.4); Monocytes Absolute Auto 0.8 X10*3/uL (0.1-1.2); Monocytes Percent Auto 7.9 % (2-11); Neutrophils Absolute Auto 5.7 x10*3/uL (2.0-8.3); Neutrophils Percent Auto 55.9 % (45-73); Platelet Count 271 X10*3/uL (160-400); Red Blood Count 4.38 X10*6/uL (4.60-5.80); White Blood Count 10.1 X10*3/uL (4.8-10.8)
[2024-02-15 11:48] LABS: Creatinine Urine 164.24 mg/dL; Microalbum/Creatinine Ratio Ur 4.8 ug/mg cr (<30)
[2024-02-15 12:26] LABS: Alanine Aminotransferase 17 U/L (0-40); Albumin Level 4.2 g/dL (3.5-5.0); Alkaline Phosphatase 99 U/L (39-117); Anion Gap 12 (12-20); Aspartate Amino Transferase 13 U/L (5-37); Bilirubin Total 0.5 mg/dL (0.0-1.0); Blood Urea Nitrogen 11 mg/dL (9-16); Calcium 9.4 mg/dL (8.4-10.2); Carbon Dioxide 28 mmol/L (22-29); Chloride 103 mmol/L (96-108); Cholesterol 217 mg/dL (<200); Estimated Glomerular Filt Rate > 60; Glucose Fasting 125 mg/dL (60-99); HDL Cholesterol 32 mg/dL (>40); Iron 84 mcg/dL (45-160); LDL Cholesterol Calculated 152 mg/dL (<100); Percent Iron Saturation 32 % (15-50); Potassium 4.3 mmol/L (3.3-5.1); Sodium 139 mmol/L (135-145); Total Iron Binding Capacity 265 mcg/dL (228-428); Total Protein 6.9 g/dL (6.5-8.0); Triglycerides 168 mg/dL (<150); Unsaturated Iron Binding 181 ug/dL
[2024-02-15 12:51] LABS: Vitamin D 25-OH Total 31.5 ng/mL (>30)
== END 2024-02-15 09:16 | disposition home or self-care (01) ==
LOC: HO.LAB 09:15
PROVIDERS: PCP Internal Medicine; Visit Provider Internal Medicine
DX: E78.5 Hyperlipidemia, unspecified (principal); D64.9 Anemia, unspecified; E55.9 Vitamin D deficiency, unspecified; E11.9 Type 2 diabetes mellitus without complications
CPT/HCPCS: 36415; 80053; 80061; 82043; 82306; 82570; 83540; 85025

== ENCOUNTER 2024-02-20 13:28 | Outpatient (AMB) | payer OTHER, SELFPAY ==
--- NOTE | 2024-02-20 13:30 | A.OFFVIS_ITS ---
Vital Signs 02/20/24 13:31 Height 5 ft 9 in Weight 213 lb 13.574 oz BMI 31.6 BP 110/64 Blood Pressure Location Rt brachial Position Sitting Pulse 80 Pulse Source Pulse Oximeter Pulse Oximetry (%) 96 Oxygen Delivery Method Room Air Intake Visit Reasons: COPD Allergies No Known Allergies [No Known Allergies*] Allergy (Verified 02/22/24 10:23) HPI HPI COPD: Details: Owen is a pleasant 68 year old male, current smoker, with 65 pack year history and underlying COPD and DMII. He was referred for pulmonary evaluation by PCP. He reports dry cough and dyspnea on exertion. He was prescribed dulera by PCP but after further discussion patient has not been using daily and rarely uses albuterol. He denies h/o asthma however it is documented in chart. He denies seasonal allergies. He denies occupational exposures. He reports daughter with asthma, otherwise no pertinent family history. He is a part of the lung cancer screening program at [facility], last LDCT from 09/17 RADS2 revealed mild emphysematous changes and stable 7 mm granuloma of anterior lingula. [facility] Medical History Moderate persistent asthma ARELIS (generalized anxiety disorder) Knee pain Mild persistent asthma, uncomplicated Mild recurrent major depression Hearing loss Physical exam Obese Pure hypercholesterolemia Insomnia Surgical History H/O colonoscopy History of knee replacement procedure of right knee History of knee replacement procedure of left knee Family History Father Pancreatic cancer Mother Chronic mental illness Diabetes Hypertension Stroke Sister Cancer Family/Other Chronic mental illness Social History Household Members: Children Housing: Condominium Are you a primary dog daycare provider to a significant other at home: No Do you presently have visiting nurse or other home services: No Alcohol intake: former Patient Tobacco Use Status: Current everyday Tobacco user Tobacco use type: Cigarette Cigarette Packs Per Day: 1 e-Cigarette/Vaping Use: Never Used Second Hand Smoke Exposure: No service: No Current occupational status: disabled Cognitive needs: No Hearing needs: No Vision needs: Yes Review of Systems Const Denies chills, Denies excessive sweating, Denies fever(s), Denies headache(s) and Denies night sweats Eyes Denies dry eyes, Denies irritation and Denies itchy eyes ENT Reports Normal hearing present, Denies headache(s), Denies nasal congestion, Denies nasal discharge, Denies post nasal drip and Denies sore throat Card Denies chest pain, Denies chest pain at rest, Denies chest pain with activity, Denies claudication, Denies leg edema, Denies orthopnea and Denies paroxysmal nocturnal dyspnea Resp Denies chest congestion, Denies excessive phlegm production, Denies pain on inspiration, Denies pain with cough, Denies stridor and Denies wheezing Musc Denies myalgias Neuro Reports Normal hearing present and Denies headache(s) Endo Denies excessive sweating Yoandy/Lymph Denies lymphadenopathy Aller/Immun Denies itchy eyes, Denies seasonal rhinorrhea and Denies wheezing Physical Exam Vital Signs: Last Vital Signs Pulse 80 02/20/24 13:31 BP 110/64 02/20/24 13:31 Pulse Ox 96 02/20/24 13:31 Oxygen Delivery Method Room Air 02/20/24 13:31 BMI result Body Mass Index 31.6 Const General: cooperative, healthy appearing, comfortable, no acute distress, well developed and alert Nutritional Appearance: obese Orientation/consciousness: patient oriented x3 Limitations: no limitations HEENT Head: Yes normal to inspection, Yes normocephalic and Yes atraumatic Ears: hearing grossly normal bilaterally and external ears normal Eyes General: appearance normal, both eyes and all related structures Eyelids: Yes eyelids normal Sclerae: sclerae normal EOM: EOMs intact bilaterally Neck Neck: Yes normal visual inspection and Yes no lymphadenopathy Lymphatic: no lymphadenopathy noted Chest Chest palpation & inspection: normal inspection of the chest Resp Effort & Inspection: normal respiratory effort, able to speak in complete sentences, no audible wheezes, no cough, no stridor, not tachypneic, no tripod positioning and no use of accessory muscles Auscultation: clear to auscultation bilaterally Cardio Jugular venous distension: no JVD Rate: regular rate Rhythm: regular rhythm Skin Other: warm, dry General skin exam: no rashes or lesions noted Neuro General: patient oriented x3 Cranial nerves: Yes Normal hearing present Cognition (Neuro): normal cognition Gait exam (Neuro): Normal gait present Extrem General: Yes normal to inspection, Yes capillary refill normal, Yes no clubbing, cyanosis or edema and Yes no pedal edema Psych Appearance: grossly normal and well kempt Speech and movement: Normal speech and movement present and Clear speech present Affect: normal affect Attitude: cooperative Thought process: Normal thought process present Thought content: Normal thought content present Insight: Good insight present (Psych) Judgement: Good judgement present (Psych) Assessment & Plan Assessment & Plan (1) COPD (chronic obstructive pulmonary disease): Code(s): J44.9 - Chronic obstructive pulmonary disease, unspecified Category: Medical (2) Nicotine dependence, cigarettes, uncomplicated: Code(s): F17.210 - Nicotine dependence, cigarettes, uncomplicated Category: Medical Plan Owen's symptoms are likely related to underlying asthma/COPD, will send for PFT to assess. Advised patient to use Dulera consistently and will reevaluate symptoms at the next visit. Smoking cessation discussed and patient recently prescribed NRT by PCP. Will follow up to review results and response to Dulera. All questions were answered and patient is in agreement of plan. Orders: Orders PFT pulmonary function test Today J44.9 - Chronic obstructive pulmonary d isease, unspecified Coding Level of Care Code New Pt Level 3 (76338) Diagnoses COPD (chronic obstructive pulmonary disease) J44.9 Nicotine dependence, cigarettes, uncomplicated F17.210
[2024-02-20 13:31] VITALS: BP 110/64; PULSE 80; O2SAT 96; BMI 31.6
== END 2024-02-20 13:54 | disposition home or self-care (01) ==
PROVIDERS: PCP Internal Medicine; Referring Provider Internal Medicine; Visit Provider Nurse Practitioner Family
DX: J44.9 Chronic obstructive pulmonary disease, unspecified (principal); F17.210 Nicotine dependence, cigarettes, uncomplicated
CPT/HCPCS: 99203

== ENCOUNTER → 2024-02-20 13:28 | Outpatient (BNVA) | payer OTHER, SELFPAY | PROVIDERS: PCP Internal Medicine; Referring Provider Internal Medicine; Visit Provider Nurse Practitioner Family | DX: J44.9 Chronic obstructive pulmonary disease, unspecified (principal); F17.210 Nicotine dependence, cigarettes, uncomplicated | CPT/HCPCS: 99202 ==

== ENCOUNTER 2024-02-22 10:21 | Outpatient (AMB) | payer OTHER, SELFPAY ==
--- NOTE | 2024-02-22 10:22 | A.OFFPC_ITS ---
Vital Signs 02/22/24 10:23 Height 5 ft 9 in Weight 213 lb 0.6 oz BMI 31.5 BP 104/72 Blood Pressure Location Lt brachial Position Sitting Pulse 76 Pulse Source Pulse Oximeter Pulse Oximetry (%) 97 Oxygen Delivery Method Room Air Intake Visit Reasons: both ears flushed Sound Recording Technician Required: No Allergies No Known Allergies [No Known Allergies*] Allergy (Verified 02/22/24 10:23) Tobacco use date assessed: 08/30/23 Fall risk assessment: No Falls in past year Last assessed Fall Risk: 02/22/24 Dental Screening Dental Screen Date: 08/30/23 HPI both ears flushed HPI Details 68-year-old male with diabetes mellitus type 2, COPD, mixed hyperlipidemia and mild recurrent major depression that comes today for ear flushing. Patient presents today with a family member who translates for the duration of the appointment. He went to a hearing test appointment and was found to have bilateral cerumen and was told he might have an infection. He was told he needs to have the ears cleaned before he can go back for another appointment. [facility] Medical History Moderate persistent asthma ARELIS (generalized anxiety disorder) Knee pain Mild persistent asthma, uncomplicated Mild recurrent major depression Hearing loss Physical exam Obese Pure hypercholesterolemia Insomnia Surgical History H/O colonoscopy History of knee replacement procedure of right knee History of knee replacement procedure of left knee Family History Father Pancreatic cancer Mother Chronic mental illness Diabetes Hypertension Stroke Sister Cancer Family/Other Chronic mental illness Social History Household Members: Children Housing: Condominium Are you a primary respiratory care instructor to a significant other at home: No Do you presently have visiting nurse or other home services: No Alcohol intake: former Patient Tobacco Use Status: Current everyday Tobacco user Tobacco use type: Cigarette Cigarette Packs Per Day: 1 e-Cigarette/Vaping Use: Never Used Second Hand Smoke Exposure: No service: No Current occupational status: disabled Cognitive needs: No Hearing needs: No Vision needs: Yes Questionnaire Thrive Questionnaire Date Thrive assessed: 08/30/23 AUDIT C Alcohol Use Questionnaire (AUDIT-C) 1. How often do you have a drink containing alcohol?: Never 3. How often do you have six or more drinks on one occasion?: Never Total Score: 0 Score Reviewed/Action Taken: No ARELIS-7 AMB Questionnaire ARELIS-7 Date ARELIS - 7 assessed: 08/30/23 Source: Developed by Drs. Joaquin Tirado, Leona Craig, Rigo Parks and colleagues, with an educational rai from [employer]. Review of Systems Const Denies chills, Denies fever(s) and Denies headache(s) Eyes Reports no additional complaints ENT Details: Difficulty hearing in left ear itching Denies headache(s) Card Reports no additional complaints Resp Reports no additional complaints GI Reports no additional complaints Musc Reports no additional complaints Skin/Breast Reports system reviewed and no additional complaints, except as documented Neuro Denies headache(s) Physical exam (Primary Care) Vital Signs: Last Vital Signs Pulse 76 02/22/24 10:23 BP 104/72 02/22/24 10:23 Pulse Ox 97 02/22/24 10:23 Oxygen Delivery Method Room Air 02/22/24 10:23 BMI result Body Mass Index 31.5 Tobacco/Smoking Status: Tobacco use Status Tobacco use date assessed 08/30/23 02/22/24 10:24 Patient Tobacco Use Status Current everyday Tobacco 02/22/24 10:24 Tobacco use type Cigarette 02/22/24 10:24 e-Cigarette/Vaping Use Never Used 02/22/24 10:24 Thrive Assessment: Date of Thrive Assessment Date Thrive assessed 08/30/23 02/22/24 10:24 Const General: cooperative, healthy appearing, comfortable and no acute distress HENMT Other: Cerumen impaction left ear and scant wax in the right ear Head: Yes normocephalic Ears: hearing grossly normal bilaterally and TM normal on the right Resp Effort & Inspection: normal respiratory effort and able to speak in complete sentences Cardio Rate: regular rate Rhythm: regular rhythm Office Procedures Cerumen Removal From which ear canal was the cerumen removed: bilateral Removal: cerumen loop/spoon Notes: patient tolerated procedure well, no complications and ear canal clear [id number] Wax Removal by Spoon/Curette Assessment and Plan Assessment & Plan (1) Cerumen impaction: Code(s): H61.20 - Impacted cerumen, unspecified ear Plan: Patient had cerumen impaction of the left ear which was successfully removed with curette. Patient tolerated procedure well and TM was visualized as intact with well aerated middle ear spaces. Small amount of wax was removed from the right ear with curette and patient tolerated this as well. Plan This note was constructed using voice recognition software. While every effort has been made to ensure accuracy and in processing instructor, still areas may have been included sometimes these areas may affect the content or meeting of the given symptoms. Total time spent caring for the patient today was 15 minutes. This includes time spent before the visit reviewing the chart, time spent during the visit, and time spent after the visit and documentation. Coding Level of Care Code Est Pt Level 3 (49363) Diagnoses Cerumen impaction H61.20 CPT Codes Office Procedure - CPT: 95750-Tjr Wax Removal by Spoon/Curette ([id number])
[2024-02-22 10:23] VITALS: BP 104/72; PULSE 76; O2SAT 97; BMI 31.5
== END 2024-02-22 10:52 | disposition home or self-care (01) ==
PROVIDERS: PCP Internal Medicine
DX: H61.23 Impacted cerumen, bilateral (principal)
CPT/HCPCS: 69210; 99213

== ENCOUNTER 2024-05-03 13:46 | Outpatient (REF) | payer OTHER, SELFPAY ==
--- NOTE | 2024-05-03 13:49 | PFT_ITS ---
Flows: FEV1: 78 % of predicted at 2.47 L FVC: 93 % of predicted at 3.88 L FEV1/FVC: 64 % Bronchodilator response: Absent Volumes: Total lung capacity: 80 % of predicted at 5.57 L Residual volume: 85 % of predicted at 2.04 L Slow vital capacity: 78 % of predicted at 3.54 L Expiratory reserve volume: 75 % of predicted at 0.89 L Diffusion capacity: Mildly decreased Impression: Moderate obstructive ventilatory defect with no bronchodilator response. Decreased diffusion capacity suggests emphysema. MTDD
[2024-05-03 15:47] VITALS: PULSE 84; RESP 16; O2SAT 97
== END 2024-05-03 13:47 | disposition home or self-care (01) ==
LOC: HO.RESP 13:46
PROVIDERS: PCP Internal Medicine; Visit Provider Nurse Practitioner Family
DX: J44.9 Chronic obstructive pulmonary disease, unspecified (principal)
CPT/HCPCS: 94010; 94640; 94727; 94729

== ENCOUNTER → 2024-05-03 13:49 | Outpatient (BNV) | payer OTHER, SELFPAY | PROVIDERS: PCP Internal Medicine; Visit Provider Internal Medicine Pulmonary Disease | DX: J44.9 Chronic obstructive pulmonary disease, unspecified (principal) | CPT/HCPCS: 94060; 94727; 94729 ==

== ENCOUNTER 2024-05-08 14:11 | Outpatient (AMB) | payer OTHER, SELFPAY ==
--- NOTE | 2024-05-08 14:03 | A.OFFVIS_ITS ---
Intake Visit Reasons: COPD Allergies No Known Allergies [No Known Allergies*] Allergy (Verified 04/16/24 09:08) HPI HPI COPD: Details: Owen is a pleasant 68 year old male, current smoker, with 65 pack year history and underlying COPD and DMII. He was prescribed dulera by PCP but had been using infrquently. Since the last visit, he reports significant improvement in respiratory symptoms. Today's visit is conducted via telephone to review PFT results. PFS Medical History Moderate persistent asthma ARELIS (generalized anxiety disorder) Knee pain Mild persistent asthma, uncomplicated Mild recurrent major depression Hearing loss Physical exam Obese Pure hypercholesterolemia Insomnia Surgical History H/O colonoscopy History of knee replacement procedure of right knee History of knee replacement procedure of left knee Family History Father Pancreatic cancer Mother Chronic mental illness Diabetes Hypertension Stroke Sister Cancer Family/Other Chronic mental illness Social History Household Members: Children [facility] Are you a primary career and transition teacher to a significant other at home: No Do you presently have visiting nurse or other home services: No Alcohol intake: former Patient Tobacco Use Status: Current everyday Tobacco user Tobacco use type: Cigarette Cigarette Packs Per Day: 1 Cigarettes Per Day: 20 e-Cigarette/Vaping Use: Never Used Second Hand Smoke Exposure: No service: No Current occupational status: disabled Cognitive needs: No Hearing needs: No Vision needs: Yes Review of Systems Const All systems reviewed & are unremarkable except as noted in HPI and below Physical Exam Const General: cooperative and no acute distress Orientation/consciousness: patient oriented x3 Resp Effort & Inspection: normal respiratory effort, able to speak in complete sentences and no audible wheezes Neuro General: patient oriented x3 Psych Mental Status: mental status grossly normal Speech and movement: Clear speech present Attitude: cooperative Thought process: Normal thought process present Thought content: Normal thought content present Insight: Good insight present (Psych) Judgement: Good judgement present (Psych) Telehealth Telehealth Telehealth Platform: Telephone Location of provider rendering services: practice address Location of patient: address on file Patient Identification confirmed using: Name, : Yes Telehealth method: voice only Patient verbally consented to treatment: Yes Patient verbally consented to billing insurance company: Yes Patient informed of any privacy concerns related to visit: Yes Assessment & Plan Assessment & Plan (1) COPD (chronic obstructive pulmonary disease): Code(s): J44.9 - Chronic obstructive pulmonary disease, unspecified Category: Medical (2) Nicotine dependence, cigarettes, uncomplicated: Code(s): F17.210 - Nicotine dependence, cigarettes, uncomplicated Category: Medical Plan Reviewed PFT which revealed mild obstructive defect, normal lung volumes, mildly decreased DLCO suggestive of emphysema which was confirmed with prior chest CT 10/18. He is scheduled for annual imaging through [facility]'s lung screening program. He reports significant improvement since taking Dulera, using albuterol MDI infrequently. Advised to continue. Smoking cessation discussed and patient recently prescribed NRT by PCP, however continues to smoke about 1 ppd. All questions were answered and patient is in agreement of plan. Will follow up in three months or sooner if needed. I spent 10 minutes speaking with the patient on the phone plus an additional 8 minutes reviewing and updating records for a total of 18 minutes Coding Level of Care Code Tele Est Pt Level 3 (46548) Diagnoses COPD (chronic obstructive pulmonary disease) J44.9 Nicotine dependence, cigarettes, uncomplicated F17.210
== END 2024-05-08 14:14 | disposition home or self-care (01) ==
LOC: HO.HPSW 14:11
PROVIDERS: PCP Internal Medicine; Visit Provider Nurse Practitioner Family
DX: J44.9 Chronic obstructive pulmonary disease, unspecified (principal); F17.210 Nicotine dependence, cigarettes, uncomplicated
CPT/HCPCS: 99442

== ENCOUNTER 2024-07-03 10:50 | Outpatient (AMB) | payer OTHER, SELFPAY ==
--- NOTE | 2024-07-03 10:55 | A.OFFPC_ITS ---
Vital Signs 07/03/24 10:58 Height 5 ft 9 in Weight 213 lb BMI 31.5 BP 112/70 Blood Pressure Location Lt brachial Position Sitting Intake Visit Reasons: Annual Exam Intake Note: Patient here for a physical exam, c/o left testicle pain Foundation Digger Required: No Accompanied by: Daughter Allergies No Known Allergies [No Known Allergies*] Allergy (Verified 07/03/24 11:05) Medication List - Last Reconciled 07/03/24 by Yulia Montoya MD atorvastatin 80 mg PO BEDTIME 90 days blood sugar diagnostic (FreeStyle Lite Strips) Use 1 test strip once a day blood-glucose meter (FreeStyle Lite Meter kit) As directed dicyclomine 20 mg PO TID 30 days empagliflozin (Jardiance) 10 mg PO DAILY 90 days lancets (FreeStyle Lancets) Use 1 lancet once a day mometasone-formoterol 50-5 mcg/actuation (Dulera) 2 puffs inhalation Q12H 30 days nicotine 1 patch transdermal DAILY 28 days sertraline 50 mg PO DAILY 90 days Ventolin HFA 90 mcg/actuation (albuterol sulfate) 2 puffs inhalation Q6H PRN 30 days NS Tobacco use date assessed: 07/03/24 Fall risk assessment: No Falls in past year Last assessed Fall Risk: 07/03/24 Dental Screening Dental Screen Date: 07/03/24 Did you have a dental visit in the last 12 months?: No Did you have a dental problem in the last 6 months where you did not have access to dental care?: No Was dental information given to patient?: Patient has dentist HPI HPI Comments History of Present Illness Details The patient is a 68-year-old male presenting for follow-up for his physical exam accompanied by daughter Luis. He has a history of Type 2 Diabetes Mellitus, currently managed with Jardiance 10 mg daily. He also has Chronic Obstructive Pulmonary Disease and uses Dulera as management. The patient notes that he has not taken this medication recently. In addition, he has Major Depressive Disorder with Anxiety, previously treated with Sertraline, which he indicates he needs a refill for. The patient's gastrointestinal symptoms were associated with the use of Dicyclomine, which was discontinued. His surgical history is significant for right and left knee replacements performed in 2015. The patient ceased alcohol consumption but continues to smoke, averaging one pack per day. The family history is notable for pancreatic cancer in his father, with concerns raised due to his smoking. He notably had a colonoscopy in 2021 that was technically inadequate due to incomplete bowel preparation; a repeat is planned for 2024. Vaccinations discussed include pneumococcal and influenza, with tetanus administered last in 2015 and next due in 2025. He declines flu vaccine today. - Pneumococcal vaccine recommended due t o age and smoking history. - Influenza vaccine discussed, though emma sigala declines it. - Tetanus vaccine last administered in ; next due in 2025. - Colonoscopy repeated earlier than plan booker due to inadequate preparation initially; recommended to repeat in 2024. - Lung cancer screening with CT scan rec ommended due to history of smoking; last conducted in 2023, upcoming in August 2024. - Genetic counseling and potential testi ng discussed for family history of pancreatic cancer, with referral to [facility] considered. [facility] Medical History Moderate persistent asthma ARELIS (generalized anxiety disorder) Knee pain Mild persistent asthma, uncomplicated Mild recurrent major depression Hearing loss Physical exam Obese Pure hypercholesterolemia Insomnia Surgical History H/O colonoscopy History of knee replacement procedure of right knee History of knee replacement procedure of left knee Family History Father Pancreatic cancer Mother Chronic mental illness Diabetes Hypertension Stroke Sister Cancer Family/Other Chronic mental illness Social History Household Members: Children [facility] Are you a primary care program resident to a significant other at home: No Do you presently have visiting nurse or other home services: No Alcohol intake: former Patient Tobacco Use Status: Current everyday Tobacco user Tobacco use type: Cigarette Cigarette Packs Per Day: 1 Cigarettes Per Day: 20 e-Cigarette/Vaping Use: Never Used Second Hand Smoke Exposure: No service: No Current occupational status: disabled Cognitive needs: No Hearing needs: No Vision needs: Yes Questionnaire PHQ-9 Over the last 2 weeks, how often have you been bothered by any of the following problems? 1. Little interest or pleasure in doing things: several days 2. Feeling down, depressed, or hopeless: several days 3. Trouble falling or staying asleep, or sleeping too much: several days 4. Feeling tired or having little energy: not at all 5. Poor appetite or overeating: not at all 6. Feeling bad about yourself - or that you are a failure or have let yourself or your family down: not at all 7. Trouble concentrating on things, such as reading the newspaper or watching television: not at all 8. Moving or speaking so slowly that other people could have noticed. Or the opposite - being so fidgety or restless that you have been moving around a lot more than usual: not at all 9. Thoughts that you would be better off or of hurting yourself in some way: not at all Total score: 3 Depression Screening Interpretation: Positive Depression Screening Follow-up: Existing condition, In treatment and Follow-up Visit Requested Depression Screening Done: Yes 18842 - PHQ-9 Billing: Yes Source: Developed by Drs. Joaquin Tirado, Leona Craig, Rigo Parks and colleagues, with an educational rai from [employer]. Thrive Questionnaire Date Thrive assessed: 07/03/24 I am a: Patient What is your living situation today?: I have a steady place to live Within the past 12 months, did the food you bought not last and you didn't have the money to get more?: Never true Within the past 12 months, did you worry whether your food would run out before you got money to buy more?: Never true Do you have trouble paying for medicines?: No Do you have trouble getting transportation to medical appointments?: No Do you have trouble paying your heating and electricity bill?: No Do you have trouble taking care of your child, family member or friend?: No Do you have trouble with day-to-day activities such as bathing, preparing meals, shopping, managing finances, etc.?: No Are you currently unemployed and looking for a job?: No Are you interested in more education?: No Please select the resources that you would like help with: None Currently or been in a relationship where the following occur: No concerns reported THRIVE Score: 0 AUDIT C Alcohol Use Questionnaire (AUDIT-C) 1. How often do you have a drink containing alcohol?: Never Total Score: 0 ARELIS-7 AMB Questionnaire ARELIS-7 Date ARELIS - 7 assessed: 07/03/24 Feeling nervous, anxious, or on edge: 1 = Several days Not being able to stop or control worryin = Not at all Worrying too much about different things: 1 = Several days Trouble relaxin = Several days Being so restless that it is hard to sit still: 1 = Several days Becoming easily annoyed or irritable: 1 = Several days Feeling afraid as if something awful might happen: 1 = Several days Total ARELIS-7 score (0-4 normal; 5-9 mild; 10-14 moderate; 15-21 severe): 6 Source: Developed by Drs. Joaquin Tirado, Leona Craig, Rigo Parks and colleagues, with an educational rai from [employer]. ARELIS-7 Assessment Billing ARELIS-7 Assessment Tool: ARELIS-7 Assessment 21977 Review of Systems Const Details: - Respiratory: Reports no recent exacerbations of COPD. - Gastrointestinal: Reports previous issues related to Dicyclomine use, resolved. - Psychological: Reports needs refill for depression management. Physical exam (Primary Care) Vital Signs: Last Vital Signs BP 112/70 07/03/24 10:58 BMI result Body Mass Index 31.5 BMI Assessment/Plan discussion: High BMI High, discussed plan: lifestyle, weight reduction, dietary and physical activity Tobacco/Smoking Status: Tobacco use Status Tobacco use date assessed 07/03/24 07/03/24 11:02 Patient Tobacco Use Status Current everyday Tobacco 07/03/24 10:56 Tobacco use type Cigarette 07/03/24 10:56 e-Cigarette/Vaping Use Never Used 07/03/24 10:56 Are you ready to quit: Yes Tobacco cessation counseling provided: Yes Items discussed: Nicotine replacement and QuitWorks Relapse Prevention: discussed the importance of a supportive environment, discussed extending NRT, discussed negative mood or depression after quitting, weight gain after smoking is common and discussed dietary, exercise and/or lifestyle changes Number of minutes spent counselin CPT code: 32185 - 4-10 Minutes PHQ-9: PHQ-9 Score PHQ-9: Total score 3 07/03/24 11:24 Depression Screening Interpretation: Positive Depression Screening Follow-up: Existing condition, In treatment and Follow-up Visit Requested Thrive Assessment: Date of Thrive Assessment Date Thrive assessed 07/03/24 07/03/24 11:02 Currently or been in a relationship where the following occur: No concerns reported Const Other: General: Cooperative, healthy appearing, comfortable, no acute distress and well developed Orientation: Patient oriented x3 Respiratory: Normal respiratory effort and able to speak in complete sentences. Clear to auscultation bilaterally Cardiovascular: Regular rate and rhythm. Normal S1 and S2 GI: Normal to inspection. Soft to palpation and nontender Skin: No rashes or lesions noted Neuro: Patient oriented x3 Extremities: Normal to inspection, with history of right and left knee surgery in 2016 Office Procedures Flu Questionnaire Does the patient have a severe egg allergy?: No Results AMB Hemoglobin A1c AMB Hemoglobin A1c 7.5 % Last Edit by LAM August on 07/03/24 11:0 7 Immunizations Fluarix Triv [id number] (PF) 45 mcg (15 mcg x 3)/0.5 mL IM syringe Performing Provider: Yulia Montoya MD Performing Location: [facility] [place] Adult [facility] Documented (not given) by: LAM August on 07/03/24 11:06 Reason Not Given: Patient Refused pneumoc 20-gabriella conj-dip cr(PF) 0.5 mL IM syringe Performing Provider: Yulia Montoya MD Performing Location: [facility] [place] [facility] Administered by: LAM August on 07/03/24 11:23 Dose Route Admin Location Dispensed Lot Number Expiration Date [facility] Valve Seater Operator 0.5 mL IM Left Deltoid 0.5 mL [id number] 09/25/25 Advanced Brain Monitoring/Double Encore VIS Given Date VIS Provided VIS Publication Date 07/03/24 Single Vaccine 21 Eligibility Eligibility Date Funding Source Not [facility] Eligible 07/03/24 Private Results Reviewed Results Reviewed: Laboratory Last Values Hgb A1c (Clinic) 7.5 % (4.0-6.0) H 07/03/24 10:54 Coding Level of Care Code Est Pt Level 3 (69101) Est Pt Prev Care >65y(13711) Diagnoses Physical exam Z00.00 Mild recurrent major depression F33.0 Type 2 diabetes mellitus without complication, without long-term current use of insulin E11.9 Diabetes mellitus type: type 2 Diabetes mellitus fdc insulin use: without fdc use Diabetes mellitus complication status: without complication COPD (chronic obstructive pulmonary disease) J44.9 Family history of cancer Z80.9 Additional Codes ARELIS-7 Assessment Billing - ARELIS-7 Assessment Tool: ARELIS-7 Assessment 95721 ([id number]) PHQ-9 - 34116 - PHQ-9 Billing: Yes ([id number]) Vital Signs *Quality* - CPT code: 13557 - 4-10 Minutes ([id number]) Time Spent (min) 35 Assessment & Plan Assessment & Plan (1) Physical exam: Code(s): Z00.00 - Encounter for general adult medical examination without abnormal findings Category: Medical (2) Mild recurrent major depression: Code(s): F33.0 - Major depressive disorder, recurrent, mild Category: Medical (3) Diabetes mellitus: Code(s): E11.9 - Type 2 diabetes mellitus without complications Category: Medical Qualifiers: Diabetes mellitus type: type 2 Diabetes mellitus fdc insulin use: without fdc use Diabetes mellitus complication status: without complication Qualified Code(s): E11.9 - Type 2 diabetes mellitus without complications (4) COPD (chronic obstructive pulmonary disease): Code(s): J44.9 - Chronic obstructive pulmonary disease, unspecified Category: Medical (5) Family history of cancer: Code(s): Z80.9 - Family history of malignant neoplasm, unspecified Category: Medical Plan - Administer pneumococcal vaccine; influenza vaccine declined - Discuss genetic counseling at [facility] due to family history of pancreatic cancer. Patient was informed and verbally consented to the use of an ambient scribe for clinic note documentation during this visit. I explained the need for continued management of Type 2 Diabetes Mellitus with Jardiance and confirmed the management plan for COPD, with an emphasis on medication adherence and refilling Dulera. We reviewed the importance of ma intaining mental health treatment with Sertraline. The patient was informed of the discontinuation of Dicyclomine due to previous adverse effects. We discussed the rationale for early repeat of colonoscopy and the plan for lung cancer screening due to smoking history. I addressed concerns about pancreatic cancer risk, agreeing on referring the patient for genetic counseling. Permission was obtained for administering the pneumococcal vaccine, despite the patient's decision to decline the influenza vaccine. Orders: Orders Complete Blood Count Auto Diff Today D64.9 - Anemia, unspecified Vitamin D 25-OH Total Today E55.9 - Vitamin D deficiency, unspecified Comprehensive [place]. Panel Fast Today J44.9 - Chronic obstructive pulmonary disease, unspecified Pneumococcal 20 Immunization Today Z23 - Encounter for immunization Influenza [id number] Immunization Today Z23 - Encounter for immunization AMB Hemoglobin A1c Today E11.9 - Type 2 diabetes mellitus without complications Lipid Panel Today E78.5 - Hyperlipidemia, unspecified IRON PROFILE Today D64.9 - Anemia, unspecified Vitamin B12 and Folate Today E53.8 - Deficiency of other specified B group vitamins Referrals Gastroenterology Referral R10.9 - Unspecified abdominal pain, Z12.11 - Encounter for screening for malignant neoplasm of colon Genetics Referral Z80.9 - Family history of malignant neoplasm, unspecified Medications: New empagliflozin (Jardiance) 25 mg PO DAILY 90 tabs 1RF 90 days Discontinued empagliflozin (Jardiance) Discontinued Reason: Patient Completed Course 10 mg PO DAILY 90 days 90 tabs 1RF E11.9 - Type 2 diabetes mellitus without complications dicyclomine Discontinued Reason: Patient Completed Course 20 mg PO TID 30 days 90 tabs 0RF Patient Instructions: - Increase taking Jardiance to 25 mg daily for diabetes. - Restart Dulera inhaler as prescribed for COPD management. - Begin taking Sertraline; we will refill the prescription today. - Do not take Dicyclomine. - Await scheduling from Dr. Day' office for your colonoscopy. - Plan to undergo lung CT screening in August 2024. - Pneumococcal vaccine will be administered today; if concerns or reactions arise, please contact us. - No need for influenza vaccination as discussed. - Follow up with genetic counseling at [facility] regarding pancreatic cancer risk factors. - Contact the clinic with any new symptoms or concerns.
[2024-07-03 10:58] VITALS: BP 112/70; BMI 31.5
== END 2024-07-03 11:25 | disposition home or self-care (01) ==
PROVIDERS: PCP Internal Medicine; Visit Provider Internal Medicine
DX: Z00.00 Encounter for general adult medical examination without abnormal findings (principal); F33.0 Major depressive disorder, recurrent, mild; E11.9 Type 2 diabetes mellitus without complications; J44.9 Chronic obstructive pulmonary disease, unspecified; Z80.9 Family history of malignant neoplasm, unspecified; Z23 Encounter for immunization; F17.210 Nicotine dependence, cigarettes, uncomplicated

== ENCOUNTER → 2024-07-03 10:50 | Outpatient (BNVA) | payer OTHER, SELFPAY | PROVIDERS: PCP Internal Medicine; Visit Provider Internal Medicine | DX: Z00.00 Encounter for general adult medical examination without abnormal findings (principal); E11.9 Type 2 diabetes mellitus without complications; J44.9 Chronic obstructive pulmonary disease, unspecified; F41.9 Anxiety disorder, unspecified; F33.0 Major depressive disorder, recurrent, mild; R10.9 Unspecified abdominal pain; Z23 Encounter for immunization; Z80.9 Family history of malignant neoplasm, unspecified | CPT/HCPCS: 83036; 90471; 90472; 90677; 96127; 99212; 99397 ==

== ENCOUNTER 2024-07-11 08:30 | Outpatient (REF) | payer OTHER, SELFPAY ==
[2024-07-11 09:02] LABS: MANUAL DIFF FLAG NO
[2024-07-11 09:31] LABS: Basophils Absolute Auto 0.1 X10*3/uL (0.0-0.2); Basophils Percent Auto 0.5 % (0-2); Eosinophils Absolute Auto 0.3 X10*3/uL (0.0-0.4); Eosinophils Percent Auto 2.8 % (0-4); Hematocrit 41.5 % (42.0-52.0); Hemoglobin 13.8 g/dl (14.0-18.0); Imm Gran Abs Auto 0.05 X10*3/uL (0.00-0.03); Imm Gran Pct Auto 0.5 % (0.0-0.4); Lymphocytes Absolute Auto 3.8 X10*3/uL (1.2-4.9); Lymphocytes Percent Auto 34.1 % (20-40); Mean Corpuscular HGB Conc 33.3 g/dl (31.0-36.0); Mean Corpuscular Hemoglobin 29.6 pg (27.0-33.0); Mean Corpuscular Volume 88.9 fL (80.0-98.0); Mean Platelet Volume 8.9 fL (9.4-12.4); Monocytes Absolute Auto 0.9 X10*3/uL (0.1-1.2); Monocytes Percent Auto 7.8 % (2-11); Neutrophils Percent Auto 54.3 % (45-73); Platelet Count 255 X10*3/uL (160-400); Red Blood Count 4.67 X10*6/uL (4.60-5.80); Red Cell Distribution Width 13.3 % (11.0-16.0)
[2024-07-11 10:17] LABS: Alanine Aminotransferase 27 U/L (0-40); Albumin Level 4.3 g/dL (3.5-5.0); Alkaline Phosphatase 94 U/L (39-117); Anion Gap 10 (12-20); Aspartate Amino Transferase 20 U/L (5-37); Bilirubin Total 0.5 mg/dL (0.0-1.0); Blood Urea Nitrogen 15 mg/dL (9-16); Calcium 9.5 mg/dL (8.4-10.2); Carbon Dioxide 27 mmol/L (22-29); Chloride 105 mmol/L (96-108); Cholesterol 265 mg/dL (<200); Estimated Glomerular Filt Rate > 60; Glucose Fasting 135 mg/dL (60-99); HDL Cholesterol 33 mg/dL (>40); Iron 78 mcg/dL (45-160); LDL Cholesterol Calculated 167 mg/dL (<100); Percent Iron Saturation 25 % (15-50); Potassium 4.4 mmol/L (3.3-5.1); Sodium 138 mmol/L (135-145); Total Iron Binding Capacity 315 mcg/dL (228-428); Total Protein 7.4 g/dL (6.5-8.0); Triglycerides 328 mg/dL (<150); Unsaturated Iron Binding 237 ug/dL
[2024-07-11 10:22] LABS: Vitamin D 25-OH Total 27.8 ng/mL (>30)
[2024-07-11 10:51] LABS: Folate 16.1 ng/mL (> or = 4.0); Vitamin B12 394 pg/mL (200-900)
== END 2024-07-11 08:31 | disposition home or self-care (01) ==
LOC: HO.LAB 08:30
PROVIDERS: PCP Internal Medicine; Visit Provider Internal Medicine
DX: D64.9 Anemia, unspecified (principal); J44.9 Chronic obstructive pulmonary disease, unspecified; E78.5 Hyperlipidemia, unspecified; E53.8 Deficiency of other specified B group vitamins; E55.9 Vitamin D deficiency, unspecified
CPT/HCPCS: 36415; 80053; 80061; 82306; 82607; 82746; 83540; 85025

== ENCOUNTER 2024-09-24 10:21 | Outpatient (AMB) | payer OTHER, SELFPAY ==
[2024-09-24 10:24] VITALS: BP 144/68; PULSE 88; O2SAT 98; BMI 32.1
--- NOTE | 2024-09-24 10:24 | MHC.OFFVIS ---
Vital Signs 09/24/24 10:24 Height 5 ft 9 in Weight 217 lb 2.485 oz BMI 32.1 BP 144/68 H Blood Pressure Location Rt brachial Position Sitting Pulse 88 Pulse Source Pulse Oximeter Pulse Oximetry (%) 98 Oxygen Delivery Method Room Air Intake Visit Reasons: COPD Subwarehouse Supervisor Required: Yes Subwarehouse Supervisor Name: Sridevi Maldonado Oracle Erp Architect: Oracle Erp Architect offered & declined Allergies No Known Allergies [No Known Allergies*] Allergy (Verified 09/24/24 10:29) Medication List - Last Reconciled 09/24/24 by Lauren Lora LPN atorvastatin 80 mg PO BEDTIME 90 days blood sugar diagnostic (FreeStyle Lite Strips) Use 1 test strip once a day blood-glucose meter (FreeStyle Lite Meter kit) As directed empagliflozin (Jardiance) 25 mg PO DAILY 90 days lancets (FreeStyle Lancets) Use 1 lancet once a day mometasone-formoterol 50-5 mcg/actuation (Dulera) 2 puffs inhalation Q12H 30 days nicotine 1 patch transdermal DAILY 28 days sertraline 50 mg PO DAILY 90 days Ventolin HFA 90 mcg/actuation (albuterol sulfate) 2 puffs inhalation Q6H PRN 30 days NS HPI HPI COPD: Details: Owen is a pleasant 69 year old male, current smoker, with 65 pack year history with underlying moderate COPD, pulmonary nodules and DMII. He was previously prescribed Dulera by PCP but was unable to obtain from pharmacy for unknown reasons. He has been using Ventolin TID with moderate effect for dyspnea on exertion and dry cough. He denies chest tightness or wheezing. He is enrolled in the lung screening program through [facility] with known h/o pulmonary nodules that have been stable thus far. He has an upcoming LDCT scheduled next month. He denies any visits to urgent care or hospitalizations related to respiratory distress since the last visit. [facility] Medical History Moderate persistent asthma ARELIS (generalized anxiety disorder) Knee pain Mild persistent asthma, uncomplicated Mild recurrent major depression Hearing loss Physical exam Obese Pure hypercholesterolemia Insomnia Surgical History H/O colonoscopy History of knee replacement procedure of right knee History of knee replacement procedure of left knee Family History Father Pancreatic cancer Mother Chronic mental illness Diabetes Hypertension Stroke Sister Cancer Family/Other Chronic mental illness Social History Household Members: Children [facility] Are you a primary gericare aide to a significant other at home: No Do you presently have visiting nurse or other home services: No Alcohol intake: former Patient Tobacco Use Status: Current everyday Tobacco user Tobacco use type: Cigarette Cigarette Packs Per Day: 1 Cigarettes Per Day: 20 e-Cigarette/Vaping Use: Never Used Second Hand Smoke Exposure: No service: No Current occupational status: disabled Cognitive needs: No Hearing needs: No Vision needs: Yes Review of Systems Const Denies chills, Denies excessive sweating, Denies fever(s), Denies headache(s) and Denies night sweats Eyes Denies dry eyes, Denies irritation and Denies itchy eyes ENT Reports Normal hearing present, Denies headache(s), Denies nasal congestion, Denies nasal discharge, Denies post nasal drip and Denies sore throat Card Denies chest pain, Denies chest pain at rest, Denies chest pain with activity, Denies claudication, Denies leg edema, Denies orthopnea and Denies paroxysmal nocturnal dyspnea Resp Denies chest congestion, Denies excessive phlegm production, Denies pain on inspiration, Denies pain with cough, Denies stridor and Denies wheezing Musc Denies myalgias Neuro Reports Normal hearing present and Denies headache(s) Endo Denies excessive sweating Yoandy/Lymph Denies lymphadenopathy Aller/Immun Denies itchy eyes, Denies seasonal rhinorrhea and Denies wheezing Physical Exam Vital Signs: Last Vital Signs Pulse 88 09/24/24 10:24 BP 144/68 H 09/24/24 10:24 Pulse Ox 98 09/24/24 10:24 Oxygen Delivery Method Room Air 09/24/24 10:24 BMI result Body Mass Index 32.1 Const General: cooperative, healthy appearing, comfortable, no acute distress, well developed and alert Nutritional Appearance: obese Orientation/consciousness: patient oriented x3 Limitations: no limitations HEENT Head: Yes normal to inspection, Yes normocephalic and Yes atraumatic Ears: hearing grossly normal bilaterally and external ears normal Eyes General: appearance normal, both eyes and all related structures Eyelids: Yes eyelids normal Sclerae: sclerae normal EOM: EOMs intact bilaterally Neck Neck: Yes normal visual inspection and Yes no lymphadenopathy Lymphatic: no lymphadenopathy noted Chest Chest palpation & inspection: normal inspection of the chest Resp Effort & Inspection: normal respiratory effort, able to speak in complete sentences, no audible wheezes, no cough, no stridor, not tachypneic, no tripod positioning and no use of accessory muscles Auscultation: diminished lung sounds Cardio Jugular venous distension: no JVD Rate: regular rate Rhythm: regular rhythm Skin Other: warm, dry General skin exam: no rashes or lesions noted Neuro General: patient oriented x3 Cranial nerves: Yes Normal hearing present Cognition (Neuro): normal cognition Gait exam (Neuro): Normal gait present Extrem General: Yes normal to inspection, Yes capillary refill normal, Yes no clubbing, cyanosis or edema and Yes no pedal edema Psych Appearance: grossly normal and well kempt Speech and movement: Normal speech and movement present and Clear speech present Affect: normal affect Attitude: cooperative Thought process: Normal thought process present Thought content: Normal thought content present Insight: Good insight present (Psych) Judgement: Good judgement present (Psych) Assessment & Plan Assessment & Plan (1) COPD (chronic obstructive pulmonary disease): Code(s): J44.9 - Chronic obstructive pulmonary disease, unspecified Category: Medical (2) Nicotine dependence, cigarettes, uncomplicated: Code(s): F17.210 - Nicotine dependence, cigarettes, uncomplicated Category: Medical Plan At the last visit, patient stated he had been using Dulera however after further discussion today patient has been using Ventolin, unable to obtain Dulera. Likely due to insurance coverage issues, will send in Breo. Discussed importance of good oral hygiene to prevent thrush. He is aware to call if unable to obtain. Smoking cessation discussed, patient using NRT intermittently but not ready to quit at this time, continues to smoke about 1 ppd. All questions were answered and patient is in agreement of plan. Will follow up in 6-8 weeks or sooner if needed. Medications: New fluticasone furoate-vilanterol 100-25 mcg/dose (Breo Ellipta) 1 inh inhalation DAILY 60 ea 3RF Coding Level of Care Code Est Pt Level 4 (77020) Diagnoses COPD (chronic obstructive pulmonary disease) J44.9 Nicotine dependence, cigarettes, uncomplicated F17.210
--- OUTSIDE RECORDS SUMMARY | 2024-09-24 11:34 | XMS_ITS | Clinical Summary ---
Author Organization [facility] [address] [facility] Address [address] [place] [address] Phone Care Team Providers Care Feltmaker And Weigher Name Role Phone Yulia Montoya MD Primary Care Provider [phone] Medical History Medical History Date Comments Arthritis DX:Arthritis History of bilateral knee replacement DX:History of bilateral knee replacement Hypercholesteremia DX:Hyperchole steremia Family History Relation Name Status Comments Father Sister 1 Sister 2 Alive Social History Tobacco Use Types Packs/Day Years Used Date Smoking Tobacco: Never Assessed Sex and Gender Information Value Date Recorded Sex Assigned at Not on file Legal Sex Male 12:47 PM EST Gender Identity Not on file Sexual Orientation Not on file Obstetrics History Plan of Treatment Upcoming Encounters Date Type Department Care Team (Late st Contact Info) Description 10/13/2024 7:45 AM EDT Appointment [facility] CT Scan [address] [place] [address] Health Maintenance Due Date Last Done Comments DTaP,Tdap,and Td Vaccines (1 - Tdap) 08/25/1974 Pneumococcal Vaccine: 50+ Ye ars (1 of 1 - PCV) 08/25/2005 Zoster Vaccines (1 of 2) 08/25/2005 Abdominal Aortic Aneurysm (A AA) Screen 05/25/2022 Cholesterol Screening (Lipid Panel) 05/25/2022 Colorectal Cancer Screening: Colonoscopy 05/25/2022 Depression Screening 05/25/2022 Falls Risk Assessment 05/25/2022 Hepatitis C Screening 05/25/2022 Social Influencers of Health Screening 05/25/2022 COVID-19 Vaccine (1 - 2023-2 5 season) 2024 Influenza Vaccine (#1) 2024 RSV Immunization Patients 60 + Years Old (1 - 1-dose 75+ series) 08/25/2030 HIB Vaccines Aged Out No longer eligi ble based on patient's age to complete this topic HPV Vaccines Aged Out No longer eligi ble based on patient's age to complete this topic Hepatitis A Vaccines Aged Out No long er eligible based on patient's age to complete this topic Hepatitis B Vaccines Aged Out No long er eligible based on patient's age to complete this topic IPV Vaccines Aged Out No longer eligi ble based on patient's age to complete this topic MMR Vaccines Aged Out No longer eligi ble based on patient's age to complete this topic Meningococcal ACWY Vaccine Aged Out N o longer eligible based on patient's age to complete this topic Meningococcal B Vacine Aged Out No lo nger eligible based on patient's age to complete this topic RSV Immunization Patients Un abilio 20 months Aged Out No longer eligible b ased on patient's age to complete this topic Varicella Vaccines Aged Out No longer eligible based on patient's age to complete this topic Insurance [facility] Member Subscriber Plan / Payer (Ef fective 2023-Present) Name:Owen Garg Relation to Subscriber:Self Name:Owen Garg Payer ID:[id number] Group ID:[id number] Type:Not on file Address: [place] [address] [address] [address] Care Teams Feltmaker And Weigher Relationship Specialty Start Date End Date Yulia Montoya MD [address] [place] [address] , [address] [facility] D/B/A: [facility] ANA Lucero PCP - General Internal Medicine 07/14/21
--- OUTSIDE RECORDS SUMMARY | 2024-09-24 11:34 | XMS_ITS | Patient Health Record ---
Author Organization [facility] Address [address] [place] [address] Support Name Relationship Address Phone [facility] Emergency Contact [address] [place], [place] [id number] IVA HUNTER Guarantor Unknown [phone] Care Team Providers Care Dupligraph Operator Name Role Phone Yulia Centeno Primary Care Provider Joaquin Howard [phone] Allergies No Known Allergies Reason For Referral No Information Medications Medication SIG (Take, Route, Frequency, Duration) Notes Start Date End Date Status metFORMIN HCl 500 MG Oral for 90 Active Atorvastatin Calcium 20 MG Oral for 90 Active Metamucil 0.36 GM 2 capsules with 8 ou nces of liquid Orally Once a day for 30 days 07/26/2023 Active MiraLax 17 GM/SCOOP 1 scoop mixed with 8 ounces of fluid Orally Twice a day for 30 days Active Dicyclomine HCl 10 MG 1 or 2 capsules Or ally Every 6 hours as needed for left-sided abdominal discomfort for 30 day(s) 07/26/2023 Active Immunizations Vaccine Route Administration Date Status Comme nts Influenza Unknown 01/19/2022 Refused Problems Problem Type SNOMED Code ICD Code Onset Dates Problem Status W/U Status Risk Notes Problem Screening for malignant neoplasm of colon (768643330) Encounter for screening for malignant neoplasm of colon (Z12.11) Active confirmed Problem History of adenomatous polyp of colon (054146999) History of adenomatous polyp of colon (Z86.010) Active confirmed Problem Pre-procedure evaluation check (735821183) Encounter for other preprocedural examination (Z01.818) Active confirmed Problem 948134459 Fatty liver (K76.0) Active confirmed Problem 21964825 Constipation, unspecified constipation type (K59.00) Active confirmed Problem Diverticulosis of colon (137266946) Diverticulosis of colon (K57.30) Active confirmed Problem 225770628 Left lower quadrant abdominal pain (R10.32) Active confirmed Plan Of Treatment Future Test Test Name Order Date COLONOSCOPY 12/19/2014 COLONOSCOPY 01/19/2022 Next Appt Details Provider Name:Joaquin Day , 11/02/2024 02:40:00 PM, [address] [facility], [address], [place], [address], Insurance Providers Payer Name Payer Address Payer Phone Subscriber Number Group Number Insured Name Patient Relationship to Insured Coverage Start Date Coverage End Date [facility] [address] Attn Claims [place] [id number] IVA HUNTER Self - patient is the insured Medical (General) History Medical History History ICD Code Denies AK,DM,CVA,Lung disease,renal dise ase Asthma Colonoscopy 12/2014 with small tubular ad enomas reomved Anxiety Colonoscopy in 2021 with a small tubular adenoma Constipation Fatty liver on 2022 CT and U/S, but norm al LFT's Hyperlipidemia Surgical History Surgery Date(Month/Year) Bilateral knee replacements 2014
--- OUTSIDE RECORDS SUMMARY | 2024-09-24 11:34 | XMS_ITS ---
Author Organization [facility] Address [address] [place] [address] Support Name Relationship Address Phone PATHAKBOOKER GONZÁLES Emergency Contact [address] [place], [place] [id number] IVA HUNTER Guarantor Unknown Care Team Providers Care Coyote Hunter Name Role Phone Yulia Centeno Primary Care Provider UnavailJoaquin Lai Unavailable [phone] Allergies No Known Allergies REASON FOR VISIT Patient presents today for PRESCOTT. Medications Medication SIG (Take, Route, Frequency, Duration) Notes Start Date End Date Status Metamucil 0.36 GM 2 capsules with 8 ou nces of liquid Orally Once a day for 30 days 07/26/2023 Active MiraLax 17 GM/SCOOP 1 capful mixed with 8 ounces of fluid Orally Once or Twice a day as needed for constipation for 30 day(s) 07/26/2023 Active Dicyclomine HCl 10 MG 1 or 2 capsules Or ally Every 6 hours as needed for left-sided abdominal discomfort for 30 day(s) 07/26/2023 Active metFORMIN HCl 500 MG Oral for 90 Active Atorvastatin Calcium 20 MG Oral for 90 Active Problems Problem Type SNOMED Code ICD Code Onset Dates Problem Status W/U Status Risk Notes Problem [id number] Constipation, unspecified constipation type (K59.00) Active confirmed Problem 320816019 Left lower quadrant abdominal pain (R10.32) Active confirmed Problem 218111753 Fatty liver (K76.0) Active confirmed Vital Signs Temperature 98.7 degrees Fahrenheit 07/26/19 24 Blood pressure systolic 00 mm Hg 07/26/19 24 Blood pressure diastolic 00 mm Hg 024 Height 67.5 in 07/26/2023 Weight 213 lbs 07/26/2023 BMI 32.86 kg/m2 07/26/2023 Encounters Encounter Location Date Provider Diagnosis [facility] [address] [place] [address] 07/26/2023 Joaquin Day Constipation, unspecified constipation type K59.00 ; Left lower quadrant abdominal pain R10.32 ; History of adenomatous polyp of colon Z86.010 ; Diverticulosis of colon K57.30 and Fatty liver K76.0 Assessments Encounter Date Diagnosis (ICD Code) Assessment Notes Treatment Notes Treatment Clinical Notes Section Notes 07/26/2023 Constipation, unspecified constipation type (ICD-10 - K59.00) Start fiber and stool softeners every day for the constipation Eat fruits and vegetables, drink a lot of water Overall, Iva appears well and his abdominal exam is currently benign. We did review that his abdominal discomfort seems most consistent with that of his irritable bowel syndrome and constipation. We did review the need to start a supplemental fiber and MiraLax on a daily basis. I shall send over prescriptions for both of those. I shall also give him a prescription to use dicyclomine on a p.r.n. basis for the abdominal discomfort and presumed intestinal spasm. I advised him the best way to treat this is with improving his regularity and decreasing his constipation. It will also be helpful to hopefully prevent any further potential episodes of diverticulitis. I did advise him to stay on a high-fiber diet with plenty of fruits and vegetables, as well as drink plenty of water on a daily basis. In regard to the fatty liver, we did review that I don't think this needs any particular treatment at this point since his LFTs are consistently normal. However, we did review the best way to treat this would be to lose weight and get his cholesterol under better control. I don't think he needs a liver biopsy but it should be followed periodically with a liver profile at least twice a year. We did review that he will be due for a colonoscopy toward the latter part of 2024. I will see him at that time but advised him to definitely call prior to that if he continues to have any ongoing issues I can be of assistance with. Iva and his family were comfortable with this plan. Thank you again for allowing me to participate in Iva's care. I shall continue to keep you advised of his progress care. 07/26/2023 Left lower quadrant abdominal pain (ICD-10 - R10.32) Use the new pill Dicyclomine as needed for the left-sided abdominal pain Overall, Iva appears well and his abdominal exam is currently benign. We did review that his abdominal discomfort seems most consistent with that of his irritable bowel syndrome and constipation. We did review the need to start a supplemental fiber and MiraLax on a daily basis. I shall send over prescriptions for both of those. I shall also give him a prescription to use dicyclomine on a p.r.n. basis for the abdominal discomfort and presumed intestinal spasm. I advised him the best way to treat this is with improving his regularity and decreasing his constipation. It will also be helpful to hopefully prevent any further potential episodes of diverticulitis. I did advise him to stay on a high-fiber diet with plenty of fruits and vegetables, as well as drink plenty of water on a daily basis. In regard to the fatty liver, we did review that I don't think this needs any particular treatment at this point since his LFTs are consistently normal. However, we did review the best way to treat this would be to lose weight and get his cholesterol under better control. I don't think he needs a liver biopsy but it should be followed periodically with a liver profile at least twice a year. We did review that he will be due for a colonoscopy toward the latter part of 2024. I will see him at that time but advised him to definitely call prior to that if he continues to have any ongoing issues I can be of assistance with. Iva and his family were comfortable with this plan. Thank you again for allowing me to participate in Iva's care. I shall continue to keep you advised of his progress care. 07/26/2023 History of adenomatous polyp of colon (ICD-10 - Z86.010) Repeat colonoscopy 02/2025 Overall, Iva appears well and his abdominal exam is currently benign. We did review that his abdominal discomfort seems most consistent with that of his irritable bowel syndrome and constipation. We did review the need to start a supplemental fiber and MiraLax on a daily basis. I shall send over prescriptions for both of those. I shall also give him a prescription to use dicyclomine on a p.r.n. basis for the abdominal discomfort and presumed intestinal spasm. I advised him the best way to treat this is with improving his regularity and decreasing his constipation. It will also be helpful to hopefully prevent any further potential episodes of diverticulitis. I did advise him to stay on a high-fiber diet with plenty of fruits and vegetables, as well as drink plenty of water on a daily basis. In regard to the fatty liver, we did review that I don't think this needs any particular treatment at this point since his LFTs are consistently normal. However, we did review the best way to treat this would be to lose weight and get his cholesterol under better control. I don't think he needs a liver biopsy but it should be followed periodically with a liver profile at least twice a year. We did review that he will be due for a colonoscopy toward the latter part of 2024. I will see him at that time but advised him to definitely call prior to that if he continues to have any ongoing issues I can be of assistance with. Iva and his family were comfortable with this plan. Thank you again for allowing me to participate in Iva's care. I shall continue to keep you advised of his progress care. 07/26/2023 Diverticulosis of colon (ICD-10 - K57.30) Overall, Iva appears well and his abdominal exam is currently benign. We did review that his abdominal discomfort seems most consistent with that of his irritable bowel syndrome and constipation. We did review the need to start a supplemental fiber and MiraLax on a daily basis. I shall send over prescriptions for both of those. I shall also give him a prescription to use dicyclomine on a p.r.n. basis for the abdominal discomfort and presumed intestinal spasm. I advised him the best way to treat this is with improving his regularity and decreasing his constipation. It will also be helpful to hopefully prevent any further potential episodes of diverticulitis. I did advise him to stay on a high-fiber diet with plenty of fruits and vegetables, as well as drink plenty of water on a daily basis. In regard to the fatty liver, we did review that I don't think this needs any particular treatment at this point since his LFTs are consistently normal. However, we did review the best way to treat this would be to lose weight and get his cholesterol under better control. I don't think he needs a liver biopsy but it should be followed periodically with a liver profile at least twice a year. We did review that he will be due for a colonoscopy toward the latter part of 2024. I will see him at that time but advised him to definitely call prior to that if he continues to have any ongoing issues I can be of assistance with. Iva and his family were comfortable with this plan. Thank you again for allowing me to participate in Iva's care. I shall continue to keep you advised of his progress care. 07/26/2023 Fatty liver (ICD-10 - K76.0) Overall, Iva appears well and his abdominal exam is currently benign. We did review that his abdominal discomfort seems most consistent with that of his irritable bowel syndrome and constipation. We did review the need to start a supplemental fiber and MiraLax on a daily basis. I shall send over prescriptions for both of those. I shall also give him a prescription to use dicyclomine on a p.r.n. basis for the abdominal discomfort and presumed intestinal spasm. I advised him the best way to treat this is with improving his regularity and decreasing his constipation. It will also be helpful to hopefully prevent any further potential episodes of diverticulitis. I did advise him to stay on a high-fiber diet with plenty of fruits and vegetables, as well as drink plenty of water on a daily basis. In regard to the fatty liver, we did review that I don't think this needs any particular treatment at this point since his LFTs are consistently normal. However, we did review the best way to treat this would be to lose weight and get his cholesterol under better control. I don't think he needs a liver biopsy but it should be followed periodically with a liver profile at least twice a year. We did review that he will be due for a colonoscopy toward the latter part of 2024. I will see him at that time but advised him to definitely call prior to that if he continues to have any ongoing issues I can be of assistance with. Iva and his family were comfortable with this plan. Thank you again for allowing me to participate in Iva's care. I shall continue to keep you advised of his progress care. Plan Of Treatment Medication Medication Name Sig Start Date Stop Date Notes Metamucil 0.36 GM 2 capsules with 8 ou nces of liquid Orally Once a day for 30 days 07/26/2023 MiraLax 17 GM/SCOOP 1 capful mixed with 8 ounces of fluid Orally Once or Twice a day as needed for constipation for 30 day(s) 07/26/2023 Dicyclomine HCl 10 MG 1 or 2 capsules Or ally Every 6 hours as needed for left-sided abdominal discomfort for 30 day(s) 07/26/2023 Treatment Notes Assessment Notes Constipation, unspecified constipation t ype Start fiber and stool softeners every day for the constipation Eat fruits and vegetables, drink a lot of water Left lower quadrant abdominal pain Use t he new pill Dicyclomine as needed for the left-sided abdominal pain History of adenomatous polyp of colon Re peat colonoscopy 02/2025 Next Appt Details Follow Up: prn, Reason: Provider Name:Joaquin Day , 11/02/2024 02:40:00 PM, [address] [place] [address], [address], [place], [address], Progress Notes * ALBERTO HUNTERIMEDOB: (68 yo M)Acc No.[id number]:07/26/2023 Progress Notes Patient:?PATHAKALBERTO STEWART Provider:?Joaquin Day MD :[id number]???Age:67 Y???Sex:Male Mio e:07/26/2023 Address:[address] [place] [address] Pcp:Yulia Montoya Subjective: * Chief Complaints: * ???Patient presents today dusty PRESCOTT. * HPI: ???incontinence:? I saw Iva in the office today for evaluation of constipation, left- sided abdominal discomfort, personal history of tubular adenomas of the colon, history of diverticulosis, and discussion of colorectal cancer screening. He was accompanied by his daughter Lita, but his voxsakaz-ke-syw Alaina served as supervisor metalizing over the cell phone. ?I last saw Iva in February of 2022, at which time he underwent a followup screening colonoscopy with removal of a small tubular adenoma. The prep for the colonoscopy was not ideal and therefore the plan is for a repeat colonoscopy for screening in 2024 rather than 2026. He has been having trouble with constipation and left-sided abdominal discomfort. He was seen in the ER several months ago at which time a CT scan raised the suspicion of some very mild left-sided diverticulitis. This was treated with a course of Augmentin, although that was switched to Cipro and Flagyl as the Augmentin did not seem to be helping him. He has also been found to have evidence of fatty liver on an ultrasound and on the CT scan in 2022, but has had consistently normal liver profiles. He does complain of ongoing issues with left-sided intestinal pain that feels like a spasm. ?He enjoys a good appetite and denies any significant heartburn or dysphagia. He denies any vomiting, early satiety, anorexia, abdominal pain aside from the left-sided discomfort, jaundice, nor weight loss. He denies any hematochezia nor melena. ?In regard to the finding of fatty liver he denies any history of alcohol use nor family history of liver disease. The imaging studies while showing a fatty liver did not show any sign of cirrhosis, splenomegaly, nor ascites. A CBC with platelet count was normal in 2022. A liver profile in March 2023 was completely normal as well. He has had elevated cholesterol levels of 241 and LDL of 173 in March of 2023. He did have a normal PT with INR at that time as well. * ROS:?General/Constitutional:?Change in appetite?denies.?Chills?denies.?Fatigue?denies.?Ophthalmologic:?Patient denies? Negative..?ENT:?Patient denies?Negative..?Respiratory:?Patient denies?No coughing/hemoptysis..?Cardiovascular:?Patient denies? No chest pain/orthopnea..?Gastrointestinal:?Comments?See HPI for details.?Genitourinary:?Patient denies? No dysuria/hematuria..?Incontinence?denies.?Musculoskeletal:?Comments? Arthritis in his knees.?Skin:?Patient denies?No rash/pruritus..?Neurologic:?Patient denies? No headaches/seizures..?Psychiatric:?Patient denies?Negative..? * Medical History:? * Surgical History:? Bilateral knee replacements 2015 * Hospitalization/Major Diagno stic Procedure:?No Hospitalization History. * Family History:?Father: dece ased, pancreatic cancer.?Mother: , stroke, diagnosed with HTN (hypertension), Diabetes.?Siblings: sister lung cancer.? No colon cancer. * Social History:?Tobacco Use:?Tobacco Use/Smoking?Are you a: current smoker , How often do you smoke cigarettes?: every day, How many cigarettes a day do you smoke?: 6-10.?Drugs/Alcohol:?Alcohol Screen?Points: 0, Interpretation: Negative.?Miscellaneous:?Marital status: . Occupation: unemployed. ???smokes 1/2 ppd; no alcohol. * Medications:?TakingAtorvasta tin Calcium 20 MG Tablet Oral metFORMIN HCl 500 MG Tablet Oral Taking Atorvastatin Calcium 20 MG Tablet Oral Taking metFORMIN HCl 500 MG Tablet Oral DiscontinuedEscitalopram Oxalate 5 MG Tablet Oral Albuterol Sulfate HFA 108 (90 Base) MCG/ACT Aerosol Solution Inhalation metroNIDAZOLE 500 MG Tablet Oral Ventolin HFA 108 (90 Base) MCG/ACT Aerosol Solution Inhalation MiraLax (colon prep) 17 GM/SCOOP Powder 1 238Gm bottle mixed with Gatorade or Crystal Light Orally begin at 5:00 p.m. the day before the procedureDulcolax (colon prep) 5 MG Tablet Delayed Release take at 3:00 p.m and 7:00p.m. Orally two tablets twice a day for one dayMedication List reviewed and reconciled with the patientDiscontinued Escitalopram Oxalate 5 MG Tablet Oral Discontinued Albuterol Sulfate HFA 108 (90 Base) MCG/ACT Aerosol Solution Inhalation Discontinued metroNIDAZOLE 500 MG Tablet Oral Discontinued Ventolin HFA 108 (90 Base) MCG/ACT Aerosol Solution Inhalation Discontinued MiraLax (colon prep) 17 GM/SCOOP Powder 1 238Gm bottle mixed with Gatorade or Crystal Light Orally begin at 5:00 p.m. the day before the procedureDiscontinued Dulcolax (colon prep) 5 MG Tablet Delayed Release take at 3:00 p.m and 7:00p.m. Orally two tablets twice a day for one dayMedication List reviewed and reconciled with the patient * Allergies:?N.K.D.A.yes[Aller gies Verified] Objective: * Vitals:?Wt: 213 lbs, Ht: 67. 5 in, BMI:32.86 Index, BP: 00/00 mm Hg, Temp: 98.7. * Examination: ???General Examination: ?GENERAL APPEARANCE:?pleasant, well nourished, well developed, in no acute distress , pleasant, well nourished, well developed, in no acute distress.?EYES:?sclera non-icteric , sclera non-icteric.?ORAL CAVITY:?mucosa moist , mucosa moist.?NECK/THYROID:?no cervical lymphadenopathy, neck supple , no cervical lymphadenopathy, neck supple.?SKIN:?nonjaundiced, no spider angiomata. , nonjaundiced, no spider angiomata..?HEART:?S1, S2 normal , S1, S2 normal.?LUNGS:?clear to auscultation bilaterally , clear to auscultation bilaterally.?ABDOMEN:?normal bowel sounds, no guarding or rigidity, no hepatosplenomegaly, no masses palpable, soft, nontender, nondistended. , normal bowel sounds, no guarding or rigidity, no hepatosplenomegaly, no masses palpable, soft, nontender, nondistended..?EXTREMITIES:?no edema , no edema.?NEUROLOGIC:?alert and oriented , alert and oriented.? Assessment: * Assessment: 1.?Constipation, unspecified constipation type - K59.00 (Primary)?2.?Left lower quadrant abdominal pain - R10.32?3.?History of adenomatous polyp of colon - Z86.010?4.?Diverticulosis of colon - K57.30?5.?Fatty liver - K76.0? Overall, Iva appears well and his abdominal exam is currently benign. We did review that his abdominal discomfort seems most consistent with that of his irritable bowel syndrome and constipation. We did review the need to start a supplemental fiber and MiraLax on a daily basis. I shall send over prescriptions for both of those. I shall also give him a prescription to use dicyclomine on a p.r.n. basis for the abdominal discomfort and presumed intestinal spasm. I advised him the best way to treat this is with improving his regularity and decreasing his constipation. It will also be helpful to hopefully prevent any further potential episodes of diverticulitis. I did advise him to stay on a high-fiber diet with plenty of fruits and vegetables, as well as drink plenty of water on a daily basis. In regard to the fatty liver, we did review that I don't think this needs any particular treatment at this point since his LFTs are consistently normal. However, we did review the best way to treat this would be to lose weight and get his cholesterol under better control. I don't think he needs a liver biopsy but it should be followed periodically with a liver profile at least twice a year. We did review that he will be due for a colonoscopy toward the latter part of 2024. I will see him at that time but advised him to definitely call prior to that if he continues to have any ongoing issues I can be of assistance with. Iva and his family were comfortable with this plan. Thank you again for allowing me to participate in Iva's care. I shall continue to keep you advised of his progress care. Plan: * Treatment: 2.?Left lower quadrant abdom inal pain? Start Dicyclomine HCl Capsule, 10 MG, 1 or 2 capsules, Orally, Every 6 hours as needed for left-sided abdominal discomfort, 30 day(s), 40, Refills 3.?? Notes: Use the new pill Dicyclomine as needed for the left-sided abdominal pain?? 3.?History of adenomatous po lyp of colon? Notes: Repeat colonoscopy 02/2025?? * Procedure Codes:?3017F COLOR ECTAL CA SCREEN DOC [id number] Pt scrn tbco and id as [id number] BP SCR NOT PRFRM REC REASON NOS * Preventive Medicine:? ??Counseling:?Care goal follow-up plan:?Above Normal BMI Follow-up?Giving encouragement to exercise,?BMI management provided?Yes.? * Follow Up:?prn * * Sign off status: Completed true * Provider:?Joaquin Day MD Date:? 024 Generated for Harii dhaval/Delia/eTransmitting on:?09/24/2024 11:34 AM EDT History and Physical Notes * HPI (History of Present Illness) Category Sub-Category Detail Notes Category Not es incontinence I saw Iva in the office today for evaluation of constipation, left-sided abdominal discomfort, personal history of tubular adenomas of the colon, history of diverticulosis, and discussion of colorectal cancer screening. He was accompanied by his daughter Lita, but his fpcexxms-lg-han Alaina served as supervisor metalizing over the cell phone. I last saw Iva in February of 2022, at which time he underwent a followup screening colonoscopy with removal of a small tubular adenoma. The prep for the colonoscopy was not ideal and therefore the plan is for a repeat colonoscopy for screening in 2024 rather than 2026. He has been having trouble with constipation and left-sided abdominal discomfort. He was seen in the ER several months ago at which time a CT scan raised the suspicion of some very mild left-sided diverticulitis. This was treated with a course of Augmentin, although that was switched to Cipro and Flagyl as the Augmentin did not seem to be helping him. He has also been found to have evidence of fatty liver on an ultrasound and on the CT scan in 2022, but has had consistently normal liver profiles. He does complain of ongoing issues with left-sided intestinal pain that feels like a spasm. He enjoys a good appetite and denies any significant heartburn or dysphagia. He denies any vomiting, early satiety, anorexia, abdominal pain aside from the left-sided discomfort, jaundice, nor weight loss. He denies any hematochezia nor melena. In regard to the finding of fatty liver he denies any history of alcohol use nor family history of liver disease. The imaging studies while showing a fatty liver did not show any sign of cirrhosis, splenomegaly, nor ascites. A CBC with platelet count was normal in 2022. A liver profile in March 2023 was completely normal as well. He has had elevated cholesterol levels of 241 and LDL of 173 in March of 2023. He did have a normal PT with INR at that time as well. Examination Category Sub-Category Detail Notes Category Not es General Examination GENERAL APPEARANCE: pleasant , well nourished, well developed, in no acute distress , pleasant, well nourished, well developed, in no acute distress EYES: sclera non-icteric , sclera non-icteric NECK/THYROID: no cervical lymphade nopathy, neck supple , no cervical lymphadenopathy, neck supple HEART: S1, S2 normal , S1, S2 normal LUNGS: clear to auscultatio n bilaterally , clear to auscultation bilaterally ABDOMEN: normal bowel sounds, no guarding or rigidity, no hepatosplenomegaly, no masses palpable, soft, nontender, nondistended. , normal bowel sounds, no guarding or rigidity, no hepatosplenomegaly, no masses palpable, soft, nontender, nondistended. NEUROLOGIC: alert and oriented , alert and oriented SKIN: nonjaundiced, no spi abilio angiomata. , nonjaundiced, no spider angiomata. EXTREMITIES: no edema , no edema ORAL CAVITY: mucosa moist , mucos a moist
== END 2024-09-24 10:53 | disposition home or self-care (01) ==
LOC: HO.HPS 10:22
PROVIDERS: PCP Internal Medicine; Visit Provider Nurse Practitioner Family
DX: J44.9 Chronic obstructive pulmonary disease, unspecified (principal); F17.210 Nicotine dependence, cigarettes, uncomplicated
CPT/HCPCS: 99214

== ENCOUNTER → 2024-09-24 10:21 | Outpatient (BNVA) | payer OTHER, SELFPAY | PROVIDERS: PCP Internal Medicine; Visit Provider Nurse Practitioner Family | DX: J44.9 Chronic obstructive pulmonary disease, unspecified (principal); F17.210 Nicotine dependence, cigarettes, uncomplicated | CPT/HCPCS: 99212 ==

== ENCOUNTER 2024-11-12 08:34 | Outpatient (AMB) | payer OTHER, SELFPAY ==
--- OUTSIDE RECORDS SUMMARY | 2024-11-12 08:42 | XMS_ITS ---
Author Organization [facility] Address [address] [place] [address] Support Name Relationship Address Phone PATHAK, ALBERTOMARY Emergency Contact [address] [place], [place] [id number] IVA HUNTER Guarantor Unknown Care Team Providers Care Drug Abuse Treatment Specialist Name Role Phone Yulia Centeno Primary Care Provider UnavailJoaquin Lai Unavailable [phone] Allergies No Known Allergies REASON FOR VISIT Patient presents today for a COLON SCREENING Medications Medication SIG (Take, Route, Frequency, Duration) Notes Start Date End Date Status Atorvastatin Calcium 20 MG Oral for 90 Active metFORMIN HCl 500 MG Oral for 90 Active Dulera 100-5 MCG/ACT as directed Inhalation Active Jardiance 10 MG 1 tablet Orally Once a day Active Sertraline HCl 50 MG 1 tablet Orally Once a day Active Ventolin HFA 108 (90 Base) MCG/ACT 1 puff as needed Inhalation every 4 hrs Active MiraLax (colon prep) 17 GM/SCOOP 1 238Gm bottle mixed with Gatorade or Crystal Light Orally begin at 5:00 p.m. the day before the procedure for 1 day 01/19/2022 Active Dulcolax (colon prep) 5 MG Take 2 tablet s 2 days before the colonoscopy, then take 2 tablets at 3:00 p.m and 7:00p.m. the day before the colonoscopy Orally 2 tablets 2 days before the colonoscopy, then two tablets twice a day for one day the day before the colonoscopy for 2 days 01/19/2022 Active MiraLax 17 GM/SCOOP 1 scoop mixed with 8 ounces of fluid Orally Twice a day to help with constipation for 30 days Active Dicyclomine HCl 10 MG 1 or 2 capsules Or ally Every 6 hours as needed for left-sided abdominal discomfort for 30 day(s) 07/26/2023 Active Metamucil 0.36 GM 2 capsules with 8 ou nces of liquid Orally Once a day for 30 days 07/26/2023 Active Immunizations Vaccine Route Administration Date Status Comme nts Influenza Unknown 11/02/2024 Refused Vital Signs Temperature 97.5 degrees Fahrenheit 11/03/19 25 Blood pressure systolic 001 mm Hg 11/03/19 25 Blood pressure diastolic 01 mm Hg 025 Height 67.5 in 11/02/2024 Weight 213.2 lbs 11/02/2024 BMI 32.9 kg/m2 11/02/2024 Procedures Procedure Date Ordered Date Performed Result Body Sit e COLONOSCOPY 11/02/2024 N/A Encounters Encounter Location Date Provider Diagnosis [facility] [address] [place] [address] 11/02/2024 Joaquin Day Constipation, unspecified constipation type K59.00 ; Diverticulosis of colon K57.30 ; History of adenomatous polyp of colon Z86.010 ; Encounter for other preprocedural examination Z01.818 ; Encounter for screening for malignant neoplasm of colon Z12.11 and Left lower quadrant abdominal pain R10.32 Assessments Encounter Date Diagnosis (ICD Code) Assessment Notes Treatment Notes Treatment Clinical Notes Section Notes 11/02/2024 Constipation, unspecified constipation type (ICD-10 - K59.00) Start using daily Miralax for the constipation Overall, Iva is not having any particularly new or worrisome GI complaints. I tried to have a detailed conversation as best I could with Iva and his family today regarding his chronic complaints of the left sided abdominal discomfort and sense of constipation. We did discuss irritable bowel syndrome and intestinal spasm in relation to some mild constipation that could be causing the left-sided discomfort. I advised him that at this time I do not think he has acute diverticulitis. I have recommended that he use MiraLAX once or twice a day on a regular basis and dicyclomine on a as needed basis to help with the constipation and left-sided discomfort, respectively. I will send over new prescriptions for those. I have also recommended a follow-up colonoscopy for further screening given his history of tubular adenomas and only a limited exam back in 2021. We did review the rationale for that in regard to colon cancer prevention. Full consent has been taken for this, including risks of bleeding and perforation. The procedure will be done with monitored anesthesia care. He was given the below instructions regarding adjustment of his medications for the colonoscopy. Of note, we shall have a biomedical engineering internship present on the day of the procedure for further discussion with Iva as well. Iva and his family seemed comfortable with this plan. Thank you again for allowing me to participate in Iva's care. I shall continue to keep you advised of his progress. 11/02/2024 Diverticulosis of colon (ICD-10 - K57.30) Overall, Iva is not having any particularly new or worrisome GI complaints. I tried to have a detailed conversation as best I could with Iva and his family today regarding his chronic complaints of the left sided abdominal discomfort and sense of constipation. We did discuss irritable bowel syndrome and intestinal spasm in relation to some mild constipation that could be causing the left-sided discomfort. I advised him that at this time I do not think he has acute diverticulitis. I have recommended that he use MiraLAX once or twice a day on a regular basis and dicyclomine on a as needed basis to help with the constipation and left-sided discomfort, respectively. I will send over new prescriptions for those. I have also recommended a follow-up colonoscopy for further screening given his history of tubular adenomas and only a limited exam back in 2021. We did review the rationale for that in regard to colon cancer prevention. Full consent has been taken for this, including risks of bleeding and perforation. The procedure will be done with monitored anesthesia care. He was given the below instructions regarding adjustment of his medications for the colonoscopy. Of note, we shall have a biomedical engineering internship present on the day of the procedure for further discussion with Iva as well. Iva and his family seemed comfortable with this plan. Thank you again for allowing me to participate in Iva's care. I shall continue to keep you advised of his progress. 11/02/2024 History of adenomatous polyp of colon (ICD-10 - Z86.010) Overall, Iva is not having any particularly new or worrisome GI complaints. I tried to have a detailed conversation as best I could with Iva and his family today regarding his chronic complaints of the left sided abdominal discomfort and sense of constipation. We did discuss irritable bowel syndrome and intestinal spasm in relation to some mild constipation that could be causing the left-sided discomfort. I advised him that at this time I do not think he has acute diverticulitis. I have recommended that he use MiraLAX once or twice a day on a regular basis and dicyclomine on a as needed basis to help with the constipation and left-sided discomfort, respectively. I will send over new prescriptions for those. I have also recommended a follow-up colonoscopy for further screening given his history of tubular adenomas and only a limited exam back in 2021. We did review the rationale for that in regard to colon cancer prevention. Full consent has been taken for this, including risks of bleeding and perforation. The procedure will be done with monitored anesthesia care. He was given the below instructions regarding adjustment of his medications for the colonoscopy. Of note, we shall have a biomedical engineering internship present on the day of the procedure for further discussion with Iva as well. Iva and his family seemed comfortable with this plan. Thank you again for allowing me to participate in Iva's care. I shall continue to keep you advised of his progress. 11/02/2024 Encounter for other preprocedural examination (ICD-10 - Z01.818) Overall, Iva is not having any particularly new or worrisome GI complaints. I tried to have a detailed conversation as best I could with Iva and his family today regarding his chronic complaints of the left sided abdominal discomfort and sense of constipation. We did discuss irritable bowel syndrome and intestinal spasm in relation to some mild constipation that could be causing the left-sided discomfort. I advised him that at this time I do not think he has acute diverticulitis. I have recommended that he use MiraLAX once or twice a day on a regular basis and dicyclomine on a as needed basis to help with the constipation and left-sided discomfort, respectively. I will send over new prescriptions for those. I have also recommended a follow-up colonoscopy for further screening given his history of tubular adenomas and only a limited exam back in 2021. We did review the rationale for that in regard to colon cancer prevention. Full consent has been taken for this, including risks of bleeding and perforation. The procedure will be done with monitored anesthesia care. He was given the below instructions regarding adjustment of his medications for the colonoscopy. Of note, we shall have a biomedical engineering internship present on the day of the procedure for further discussion with Iva as well. Iva and his family seemed comfortable with this plan. Thank you again for allowing me to participate in Iva's care. I shall continue to keep you advised of his progress. 11/02/2024 Encounter for screening for malignant neoplasm of colon (ICD-10 - Z12.11) Overall, Iva is not having any particularly new or worrisome GI complaints. I tried to have a detailed conversation as best I could with Iva and his family today regarding his chronic complaints of the left sided abdominal discomfort and sense of constipation. We did discuss irritable bowel syndrome and intestinal spasm in relation to some mild constipation that could be causing the left-sided discomfort. I advised him that at this time I do not think he has acute diverticulitis. I have recommended that he use MiraLAX once or twice a day on a regular basis and dicyclomine on a as needed basis to help with the constipation and left-sided discomfort, respectively. I will send over new prescriptions for those. I have also recommended a follow-up colonoscopy for further screening given his history of tubular adenomas and only a limited exam back in 2021. We did review the rationale for that in regard to colon cancer prevention. Full consent has been taken for this, including risks of bleeding and perforation. The procedure will be done with monitored anesthesia care. He was given the below instructions regarding adjustment of his medications for the colonoscopy. Of note, we shall have a biomedical engineering internship present on the day of the procedure for further discussion with Iva as well. Iva and his family seemed comfortable with this plan. Thank you again for allowing me to participate in Iva's care. I shall continue to keep you advised of his progress. 11/02/2024 Left lower quadrant abdominal pain (ICD-10 - R10.32) Use the Dicyclomine for the abdominal discomfort. Overall, Iva is not having any particularly new or worrisome GI complaints. I tried to have a detailed conversation as best I could with Iva and his family today regarding his chronic complaints of the left sided abdominal discomfort and sense of constipation. We did discuss irritable bowel syndrome and intestinal spasm in relation to some mild constipation that could be causing the left-sided discomfort. I advised him that at this time I do not think he has acute diverticulitis. I have recommended that he use MiraLAX once or twice a day on a regular basis and dicyclomine on a as needed basis to help with the constipation and left-sided discomfort, respectively. I will send over new prescriptions for those. I have also recommended a follow-up colonoscopy for further screening given his history of tubular adenomas and only a limited exam back in 2021. We did review the rationale for that in regard to colon cancer prevention. Full consent has been taken for this, including risks of bleeding and perforation. The procedure will be done with monitored anesthesia care. He was given the below instructions regarding adjustment of his medications for the colonoscopy. Of note, we shall have a biomedical engineering internship present on the day of the procedure for further discussion with Iva as well. Iva and his family seemed comfortable with this plan. Thank you again for allowing me to participate in Iva's care. I shall continue to keep you advised of his progress. Plan Of Treatment Medication Medication Name Sig Start Date Stop Date Notes MiraLax (colon prep) 17 GM/SCOOP 1 238Gm bottle mixed with Gatorade or Crystal Light Orally begin at 5:00 p.m. the day before the procedure for 1 day 01/19/2022 Dulcolax (colon prep) 5 MG Take 2 tablet s 2 days before the colonoscopy, then take 2 tablets at 3:00 p.m and 7:00p.m. the day before the colonoscopy Orally 2 tablets 2 days before the colonoscopy, then two tablets twice a day for one day the day before the colonoscopy for 2 days 01/19/2022 MiraLax 17 GM/SCOOP 1 scoop mixed with 8 ounces of fluid Orally Twice a day to help with constipation for 30 days Dicyclomine HCl 10 MG 1 or 2 capsules Or ally Every 6 hours as needed for left-sided abdominal discomfort for 30 day(s) 07/26/2023 Treatment Notes Assessment Notes Constipation, unspecified constipation t ype Start using daily Miralax for the constipation Left lower quadrant abdominal pain Use t he Dicyclomine for the abdominal discomfort. Pending Test Test Name Order Date COLONOSCOPY 11/02/2024 Next Appt Details Provider Name:Joaquin Day , 01/28/2025 11:40:00 AM, [address] [place] [address] , [place], [place], [id number], Progress Notes * CARLOS EDUARDO HUNTEROB: (69 yo M)Acc No.[id number]:11/02/2024 Progress Notes Patient:ALBERTO GUILLEN Provider:?Joaquin Day MD :[id number]???Age:69 Y???Sex:Male Mio e:11/02/2024 Address:[address] [place] [address] [id number] Pcp:Yulia Montoya Subjective: * Chief Complaints: * ???1. Patient presents today for a COLON SCREENING. * HPI: ???incontinence:? I saw Iva in the office today for evaluation of his personal history of tubular adenomas of the colon, discussion of colorectal cancer screening, constipation, chronic left-sided abdominal discomfort, and history of diverticulosis. He was accompanied by his daughter for this visit. His daughter had another relative over the phone help with interpreting for the entire visit. This did make it somewhat difficult to obtain a complete and clear history. I last saw Iva in June 2023, at which time we had reviewed his previous colonoscopy in February of 2022 that had revealed a small polyp that was removed and the fact that the exam was limited by the prep. I recommended a follow-up colonoscopy for 2024 based on that and his previous history of adenomas on prior colonoscopies. He reports that he has been having his same left-sided abdominal discomfort intermittently. He was treated once in the past for questionable diverticulitis. When I saw him last year I had given him a prescription to use dicyclomine and MiraLAX to help with his constipation and abdominal pain. He is no longer using those. He reports that he has a bowel movement just about every day but it is somewhat difficult. He has not noticed any hematochezia nor melena. He denies any associated fevers, unintentional weight loss, jaundice, nausea, nor vomiting. He enjoys a good appetite and denies any significant heartburn or dysphagia. There is no known family history of colorectal cancer. Laboratories in March 2024 revealed a hemoglobin of 13.8 with a normal MCV. Laboratories in June 2024 revealed a hemoglobin of 13.8 with a normal MCV as well. Labs in June 2024 also revealed normal chemistries and renal function, normal iron studies with an iron of 78 and iron saturation of 25%, and a normal liver profile. * Medical History:?Denies PA,C [place],renal disease, Asthma/COPD, Colonoscopy 12/2014 with small tubular adenomas reomved, Anxiety/Depression, Colonoscopy in 2021 with a small tubular adenoma, Constipation, Fatty liver on 2022 CT and U/S, but normal LFT's, Hyperlipidemia, Mild diverticulitis of the sigmoid colon seen on CT scan in 2022 treated with outpatient antibiotics., Irritable bowel syndrome with left-sided abdominal discomfort. * Surgical History:?Bilateral knee replacements 2014. * Family History:?Father: dece ased, pancreatic cancer.?Mother: , stroke, diagnosed with HTN (hypertension), Diabetes.?Siblings: sister lung cancer.? No colon cancer.? No family history of liver cancer. * Social History:?Tobacco Use:?Tobacco Use/Smoking?Are you a: current smoker , How often do you smoke cigarettes?: every day, How many cigarettes a day do you smoke?: 6-10.?Drugs/Alcohol:?Alcohol Screen?Points: 0, Interpretation: Negative.?Miscellaneous:?Marital status: . Occupation: unemployed. ???smokes 1/2 ppd; no alcohol. * Medications:?Taking Ventolin HFA 108 (90 Base) MCG/ACT Aerosol Solution 1 puff as needed Inhalation every 4 hrs , Taking Sertraline HCl 50 MG Tablet 1 tablet Orally Once a day , Taking Dulera 100-5 MCG/ACT Aerosol as directed Inhalation , Taking Jardiance 10 MG Tablet 1 tablet Orally Once a day , Taking Atorvastatin Calcium 20 MG Tablet Oral , Taking metFORMIN HCl 500 MG Tablet Oral , Taking Dicyclomine HCl 10 MG Capsule 1 or 2 capsules Orally Every 6 hours as needed for left-sided abdominal discomfort , Taking Metamucil 0.36 GM Capsule 2 capsules with 8 ounces of liquid Orally Once a day , Taking MiraLax 17 GM/SCOOP Powder 1 scoop mixed with 8 ounces of fluid Orally Twice a day , Medication List reviewed and reconciled with the patient * Allergies:?N.K.D.A. Objective: * Vitals:?Wt:213.2lbs, Ht: 67. 5 in, BMI:32.9Index, BP:001/01mm Hg, Temp:97.5, Wt- k.71. Assessment: * Assessment: 1.?Constipation, unspecified constipation type - K59.00 (Primary)???2.?Diverticulosis of colon - K57.30???3.?History of adenomatous polyp of colon - Z86.010???4.?Encounter for other preprocedural examination - Z01.818???5.?Encounter for screening for malignant neoplasm of colon - Z12.11???6.?Left lower quadrant abdominal pain - R10.32?Overall, Iva is not havin g any particularly new or worrisome GI complaints. I tried to have a detailed conversation as best I could with Iva and his family today regarding his chronic complaints of the left sided abdominal discomfort and sense of constipation. We did discuss irritable bowel syndrome and intestinal spasm in relation to some mild constipation that could be causing the left-sided discomfort. I advised him that at this time I do not think he has acute diverticulitis. I have recommended that he use MiraLAX once or twice a day on a regular basis and dicyclomine on a as needed basis to help with the constipation and left-sided discomfort, respectively. I will send over new prescriptions for those. I have also recommended a follow-up colonoscopy for further screening given his history of tubular adenomas and only a limited exam back in 2021. We did review the rationale for that in regard to colon cancer prevention. Full consent has been taken for this, including risks of bleeding and perforation. The procedure will be done with monitored anesthesia care. He was given the below instructions regarding adjustment of his medications for the colonoscopy. Of note, we shall have a biomedical engineering internship present on the day of the procedure for further discussion with Iva as well. Iva and his family seemed comfortable with this plan. Thank you again for allowing me to participate in Iva's care. I shall continue to keep you advised of his progress. Plan: * Treatment: Notes: Start using daily Miralax for the constipation??2.?Left lower quadrant abdominal pain? Refill Dicyclomine HCl Capsule, 10 MG, 1 or 2 capsules, Orally, Every 6 hours as needed for left-sided abdominal discomfort, 30 day(s), 40, Refills 3.?Procedure: COLONOSCOPY* With MAC. Do not take the Ja rdiance for 3 days before the colonoscopy. Do not take Metformin the night before or on the day of the colonoscopy.sched for 01/28/25 at 11:40 am2 day miralax prep Notes: Use the Dicyclomine for the abdominal discomfort.??3.?Others? Refill MiraLax Powder, 17 GM/SCOOP, 1 scoop mixed with 8 ounces of fluid Orally Twice a day to helpwith constipation, 30 days, 1, Refills 11;?Refill MiraLax (colon prep) Powder, 17 GM/SCOOP, 1 238Gm bottle mixed with Gatorade or Crystal Light, Orally, begin at 5:00 p.m. the day before the procedure, 1 day, 1 Bottle, Refills 0;?Refill Dulcolax (colon prep) Tablet Delayed Release, 5 MG, Take 2 tablets 2 days before the colonoscopy, then take 2 tablets at 3:00 p.m and 7:00p.m. the day before the colonoscopy, Orally, 2 tablets 2 days before the colonoscopy, then two tablets twice a dayfor one day the day before the colonoscopy, 2 days, 6, Refills 0.?? * Immunizations:? Influenza (Not administered - Refused: Patient decision) * Procedure Codes:?66023 DIAGN OSTIC COLONOSCOPY * Preventive Medicine:? ??Counseling:?Care goal follow-up plan:?Above Normal BMI Follow-up?Dietary management education, guidance, and counseling,?BMI management provided?Yes.?Smoking Patient counseled on the dangers of tobacco use and urged to quit.?11/02/2024,?Relapse prevention:?Discussed the importance of a supportive environment and helped identify them..? ??Screenings:?Fall Risk Screening?Fall Risk Assessment:?No falls in the past year,?Screening:?No falls in the past year,?Assessment:?Not performed, no reason specified,?Plan of Care:?Not documented, no reason specified.? * * The named appointment provid er may or may not be the originator of this progress note, and it is not deemed complete until electronically signed by the appointment provider. Sign off status: Pending * Provider:?Joaquin Day MD Date:? 025 Generated for Chance puentes/Delia/Piedad on:?11/12/2024 08:41 AM EDT History and Physical Notes * HPI (History of Present Illness) Category Sub-Category Detail Notes Category Not es incontinence I saw Iva in the office today for evaluation of his personal history of tubular adenomas of the colon, discussion of colorectal cancer screening, constipation, chronic left-sided abdominal discomfort, and history of diverticulosis. He was accompanied by his daughter for this visit. His daughter had another relative over the phone help with interpreting for the entire visit. This did make it somewhat difficult to obtain a complete and clear history. I last saw Iva in June 2023, at which time we had reviewed his previous colonoscopy in February of 2022 that had revealed a small polyp that was removed and the fact that the exam was limited by the prep. I recommended a follow-up colonoscopy for 2024 based on that and his previous history of adenomas on prior colonoscopies. He reports that he has been having his same left-sided abdominal discomfort intermittently. He was treated once in the past for questionable diverticulitis. When I saw him last year I had given him a prescription to use dicyclomine and MiraLAX to help with his constipation and abdominal pain. He is no longer using those. He reports that he has a bowel movement just about every day but it is somewhat difficult. He has not noticed any hematochezia nor melena. He denies any associated fevers, unintentional weight loss, jaundice, nausea, nor vomiting. He enjoys a good appetite and denies any significant heartburn or dysphagia. There is no known family history of colorectal cancer. Laboratories in March 2024 revealed a hemoglobin of 13.8 with a normal MCV. Laboratories in June 2024 revealed a hemoglobin of 13.8 with a normal MCV as well. Labs in June 2024 also revealed normal chemistries and renal function, normal iron studies with an iron of 78 and iron saturation of 25%, and a normal liver profile.
--- OUTSIDE RECORDS SUMMARY | 2024-11-12 08:42 | XMS_ITS | Clinical Summary ---
Author Organization [facility] Address [address] [place] [address] Phone Care Team Providers Care Senior Assistant Manager Name Role Phone Yulia Montoya MD Primary Care Provider [phone] Encounters Date Type Department Care Team Description 10/13/2024 7:19 AM EDT - 10/13/2024 11:59 PM EDT Hospital Encounter [facility] CT Scan [address] [place] [address] Encounter for screening for malignant neoplasm of respiratory organs; Nicotine dependence, cigarettes, uncomplicated Discharge Disposition: Home or Self Care 09/27/2024 Telephone Lung Screening Program - [address] [place] [address] Tisha Craig MA from Last 3 Months Medical History Medical History Date Comments Arthritis [...] on file Obstetrics History Plan of Treatment Health Maintenance Due Date Last Done Comments Hepatitis A Vaccines (1 of 2 - Risk 2-dose series) 08/25/1974 Zoster Vaccines (1 of 2) 08/25/2005 Hepatitis B Vaccines (1 of 3 - Risk 3-dose series) 2015 RSV Immunization Adult Patie nts (1 - Risk 60-74 years 1-dose series) 2015 Abdominal Aortic Aneurysm (A AA) Screen 05/25/2022 Cholesterol Screening (Lipid Panel) 05/25/2022 Colorectal Cancer Screening: Colonoscopy 05/25/2022 Depression Screening 05/25/2022 Falls Risk Assessment 05/25/2022 Hepatitis C Screening 05/25/2022 Social Influencers of Health Screening 05/25/2022 COVID-19 Vaccine (1 - 2023-2 5 season) 2024 Influenza Vaccine (Season Ended) 2025 DTaP,Tdap,and Td Vaccines (2 - Td or Tdap) 04/27/2026 04/27/2016 Pneumococcal Vaccine: 50+ Years Completed 5 HIB Vaccines Aged Out No longer eligi [...] age to complete this topic Meningococcal B Vaccine Aged Out No l onger eligible based on patient's age to complete this topic RSV Immunization Patients Un abilio 20 months Aged Out No longer eligible b ased on patient's age to complete this topic Varicella Vaccines Aged Out No longer eligible based on patient's age to complete this topic Procedures Procedure Name Priority Date/Time Associated Diagnosis Comments CT LUNG SCREENING Routine 10/13/2024 7:4 4 AM EDT Encounter for screening for malignant neoplasm of respiratory organs Nicotine dependence, cigarettes, uncomplicated from Last 3 Months Results * CT Lung Screening (10/13/2024 7:44 AM EDT) Anatomical Region Laterality Modality Chest Computed Tomogra phy 10/15/2024 9:56 AM EDT Impressions 10/15/2024 10:06 AM EDT No new or suspicious pulmonary nodules. ??Lung RADS 1-negative. ??Recommend continued screening low-dose chest CT in 12 months. -------- FINAL REPORT -------- Dictated By: ADONIS ALBERT Dictated Date: 10/15/2024 09:56 ET Assigned Physician: ADONIS ALBERT Reviewed and Electronically Signed By: ADONIS ALBERT Signed Date: 10/15/2024 10:06 ET Workstation ID: [id number] Transcribed By: Self Edit Transcribed Date: 10/15/2024 09:56 ET Narrative 10/15/2024 10:06 AM EDT PROCEDURE: Chest CT INDICATION: Lung cancer screening, current smoker, 52 pack year smoking history TECHNIQUE: Chest CT without contrast. Multi planar reformats were created and interpreted. The examination was performed utilizing dose reduction techniques. ??Total DLP 178 COMPARISON: ??10/12/2023 FINDINGS: LUNGS/PLEURA: Stable calcified left upper lobe granuloma. ??No new or suspicious pulmonary nodules. ??Central airways are patent. ??Mild emphysema and chronic bronchitis. ??No pleural effusion or pneumothorax. MEDIASTINUM: Thyroid gland is unremarkable. No mediastinal or hilar lymphadenopathy. Cardiac chambers are normal in size. No pericardial effusion. Esophagus is normal. ??Mild coronary artery calcifications. CHEST WALL: No axillary lymphadenopathy or superficial hematoma. ??Bilateral gynecomastia. UPPER ABDOMEN:The visualized portions of the upper abdomen are unremarkable. BONES: No acute fracture. Scattered degenerative changes seen throughout the bones. Procedure Note Adonis Albert MD - 10/15/2024 PROCEDURE: Chest CT INDICATION: Lung cancer screening, current smoker, 52 pack year smokinghistory TECHNIQUE: Chest CT without contrast. Multi planar reformats were createdand interpreted. The examination was performed utilizing dose reductiontechniques. Total DLP 178 COMPARISON: 10/12/2023 FINDINGS: LUNGS/PLEURA: Stable calcified left upper lobe granuloma. No new orsuspicious pulmonary nodules. Central airways are patent. Mild emphysemaand chronic bronchitis. No pleural effusion or pneumothorax. MEDIASTINUM: Thyroid gland is unremarkable. No mediastinal or hilarlymphadenopathy. Cardiac chambers are normal in size. No pericardialeffusion. Esophagus is normal. Mild coronary artery calcifications. CHEST WALL: No axillary lymphadenopathy or superficial hematoma.Bilateral gynecomastia. UPPER ABDOMEN:The visualized portions of the upper abdomen areunremarkable. BONES: No acute fracture. Scattered degenerative changes seen throughoutthe bones. IMPRESSION: No new or suspicious pulmonary nodules. Lung RADS 1-negative. Recommendcontinued screening low-dose chest CT in 12 months. -------- FINAL REPORT -------- Dictated By: ADONIS ALBERT Dictated Date: 10/15/2024 09:56 ET Assigned Physician: ADONIS ALBERT Reviewed and Electronically Signed By: ADONIS ALBERT Signed Date: 10/15/2024 10:06 ET Workstation ID: [id number] Transcribed By: Self Edit Transcribed Date: 10/15/2024 09:56 ET Nesha Kaur MD IMG CT PROCEDURES Final Result from Last 3 Months Insurance [facility] Member Subscriber Plan / Payer (Ef fective 2023-Present) Name:Owen Garg Relation to Subscriber:Self Name:Owen Garg Payer ID:[id number] Group ID:[id number] Type:Not on file Address: [place] [address] [address] [id number] Care Teams Senior Assistant Manager Relationship Specialty Start Date End Date Yulia Montoya MD [address] [place] [address] , [address] Physician Associ D/B/A: [facility] ANA Lucero PCP - General Internal Medicine 07/14/21
--- OUTSIDE RECORDS SUMMARY | 2024-11-12 08:42 | XMS_ITS | Patient Health Record ---
Author Organization [facility] Address [address] [place] [address] Support Name Relationship Address Phone PATHAK RAVIBELLE Emergency Contact [address] [place], [place] [phone] IVA HUNTER Guarantor Unknown Care Team Providers Care Head Concierge Name Role Phone Yulia Centeno Primary Care Provider Joaquin Howard [phone] Allergies No Known Allergies Reason For Referral No Information Medications Medication SIG (Take, Route, Frequency, Duration) Notes Start Date End Date Status Ventolin HFA 108 (90 Base) MCG/ACT 1 [...] a day for 30 days 07/26/2023 Active Atorvastatin Calcium 20 MG Oral for 90 Active metFORMIN HCl 500 MG Oral for 90 Active Dulera 100-5 MCG/ACT as directed Inhalation Active Jardiance 10 MG 1 tablet Orally Once a day Active Sertraline HCl 50 MG 1 tablet Orally Once a day Active Immunizations Vaccine Route Administration Date Status Comme nts Influenza Unknown 01/19/2022 Refused Influenza Unknown 11/02/2024 Refused Problems Problem Type SNOMED Code ICD Code Onset Dates Problem Status W/U Status Risk Notes Problem Screening for malignant neoplasm of colon (437773416) Encounter for screening for malignant neoplasm of colon (Z12.11) Active confirmed Problem History of adenomatous polyp of colon (879494717) History of adenomatous polyp of colon (Z86.010) Active confirmed Problem Pre-procedure evaluation check (287782367) Encounter for other preprocedural examination (Z01.818) Active confirmed Problem 859625807 Fatty liver (K76.0) Active confirmed Problem 58122080 Constipation, unspecified constipation type (K59.00) Active confirmed Problem Diverticulosis of colon (599386796) Diverticulosis of colon (K57.30) Active confirmed Problem 105451112 Left lower quadrant abdominal pain (R10.32) Active confirmed Vital Signs Temperature 97.5 degrees Fahrenheit 11/02/2024 Blood pressure diastolic 01 mm Hg 11/02/2024 Height 67.5 in 11/02/2024 Blood pressure systolic 001 mm Hg 11/02/2024 Weight 213.2 lbs 11/02/2024 BMI 32.9 kg/m2 11/02/2024 Procedures Procedure Date Ordered Date Performed Result Body Sit e COLONOSCOPY 11/02/2024 N/A Encounters Encounter Location Date Provider Diagnosis [facility] [address] [place] [address] 11/02/2024 Joaquin Day Constipation, unspecified constipation type K59.00 ; Diverticulosis of colon K57.30 ; History of adenomatous polyp of colon Z86.010 ; Encounter for other preprocedural examination Z01.818 ; Encounter for screening for malignant neoplasm of colon Z12.11 and Left lower quadrant abdominal pain R10.32 [facility] [address] [place] [address] 11/02/2024 Joaquin Day Assessments Encounter Date Diagnosis (ICD Code) Assessment [...] colonoscopy. Of note, we shall have a certified medical coder present on the day of the procedure [...] colonoscopy. Of note, we shall have a certified medical coder present on the day of the procedure [...] colonoscopy. Of note, we shall have a certified medical coder present on the day of the procedure [...] colonoscopy. Of note, we shall have a certified medical coder present on the day of the procedure [...] colonoscopy. Of note, we shall have a certified medical coder present on the day of the procedure [...] colonoscopy. Of note, we shall have a certified medical coder present on the day of the procedure for further discussion with Iva as well. Iva and his family seemed comfortable with this plan. Thank you again for allowing me to participate in Iva's care. I shall continue to keep you advised of his progress. Plan Of Treatment Pending Test Test Name Order Date COLONOSCOPY 11/02/2024 Future Test Test Name Order Date COLONOSCOPY 12/19/2014 COLONOSCOPY 01/19/2022 Next Appt Details Provider Name:Joaquin Day , 01/28/2025 11:40:00 AM, [address] [place] [address] , [place], [place], [id number], Insurance Providers Payer Name Payer Address Payer Phone Subscriber Number Group Number Insured Name Patient Relationship to Insured Coverage Start Date Coverage End Date [facility] [address] Attn Claims [place] Gómez [id number] IVA HUNTER Self - patient is the insured Medical (General) History Medical History History ICD Code Denies [place],CVA,renal disease Asthma/COPD Colonoscopy 12/2014 with small tubular ad enomas reomved Anxiety/Depression Colonoscopy in 2021 with a small tubular adenoma Constipation Fatty liver on 2022 CT and U/S, but norm al LFT's Hyperlipidemia Mild diverticulitis of the s igmoid colon seen on CT scan in 2022 treated with outpatient antibiotics. Irritable bowel syndrome with left-sided abdominal discomfort Surgical History Surgery Date(Month/Year) Bilateral knee replacements 2014
--- OUTSIDE RECORDS SUMMARY | 2024-11-12 08:42 | XMS_ITS ---
Author Organization [facility] Address [address] [place] [address] Support Name Relationship Address Phone PATHAK, ALBERTOMARY Emergency Contact [address] [place], [place] [phone] IVA HUNTER Guarantor Unknown Care Team Providers Care Plush Cutter Name Role Phone Yulia Centeno Primary Care Provider UnavailJoaquin Lai Unavailable [phone] Allergies No Known Allergies REASON FOR VISIT [...] Problem Status W/U Status Risk Notes Problem 79687952 Constipation, unspecified constipation type (K59.00) Active confirmed Problem 484768848 Left lower quadrant abdominal pain (R10.32) Active confirmed Problem 429847182 Fatty liver (K76.0) Active confirmed Vital Signs Temperature 98.7 degrees Fahrenheit 07/26/19 24 Blood pressure systolic 00 mm Hg 07/26/19 24 Blood pressure diastolic 00 mm Hg 024 Height 67.5 in 07/26/2023 Weight 213 lbs 07/26/2023 BMI 32.86 kg/m2 07/26/2023 Encounters Encounter Location Date Provider Diagnosis [facility] [address] [place] [address] 07/26/2023 Joaquin Day Constipation, unspecified constipation type [...] Up: prn, Reason: Provider Name:Joaquin Day , 01/28/2025 11:40:00 AM, [address] [place] [address] , [place], [place], [phone], Progress Notes * ALBERTO HUNTERIMEDOB: (68 yo M)Acc No.[id number]:07/26/2023 Progress Notes Patient:?ALBERTO HUNTER Provider:?Joaquin Day MD :1955???Age:67 Y???Sex:Male Mio e:07/26/2023 Address:[address] [place], [place] [id number] Pcp:Yulia Montoya Subjective: * Chief Complaints: * ???Patient presents today fo r [facility]. * HPI: ???incontinence:? I saw Iva in the office today for evaluation of constipation, left- sided abdominal discomfort, personal history of tubular adenomas of the colon, history of diverticulosis, and discussion of colorectal cancer screening. He was accompanied by his daughter Lita, but his xkoxbsto-uf-uee Alaina served as ultimate hoops scoreboard operator over the cell phone. ?I last saw [...] Procedure Codes:?3017F COLOR ECTAL CA SCREEN DOC [id number] Pt scrn tbco and id as [id number] BP SCR NOT PRFRM REC REASON NOS * Preventive Medicine:? ??Counseling:?Care goal follow-up plan:?Above Normal BMI Follow-up?Giving encouragement to exercise,?BMI management provided?Yes.? * Follow Up:?prn * * Sign off status: Completed true * Provider:?Joaquin Day MD Date:? 024 Generated for Harii dhaval/Delia/eTransmitting on:?11/12/2024 08:41 AM EDT History and Physical Notes * HPI (History of Present Illness) Category Sub-Category Detail Notes Category Not es incontinence I saw Iva in the office today for evaluation of constipation, left-sided abdominal discomfort, personal history of tubular adenomas of the colon, history of diverticulosis, and discussion of colorectal cancer screening. He was accompanied by his daughter Lita, but his atzufhuh-kf-uax Alaina served as ultimate hoops scoreboard operator over the cell phone. I last saw [...]
--- OUTSIDE RECORDS SUMMARY | 2024-11-12 08:42 | XMS_ITS ---
Author Organization [facility] Address [address] [place] [address] Support Name Relationship Address Phone BOOKER PATHAK Emergency Contact [address] [place], [place] [phone] IVA HUNTER Guarantor Unknown Care Team Providers Care Medical Staffing Coordinator Name Role Phone Yulia Centeno Primary Care Provider Unavailab Joaquin Castro [phone] REASON FOR VISIT bowel prep Encounters Encounter Location Date Provider Diagnosis [facility] [address] [place] [phone] 11/02/2024 Joaquin Day Plan Of Treatment Next Appt Details Provider Name:Joaquin Day , 01/28/2025 11:40:00 AM, [address] [place] [address] , [place], [place], [phone], Progress Notes * CARLOS EDUARDO HUNTEROB: (69 yo M)Acc No.[id number]:11/02/2024 Patient:?ALBERTO HUNTER :1955???Age:69 Y???Sex:Male Address:[address] [place] [address] [place], [address] * true * Date:? Generated for Printi ng/Laithg/eTransmitting on:?11/12/2024 08:41 AM EDT
[2024-11-12 08:45] VITALS: BP 110/66; PULSE 75; O2SAT 98; BMI 31.6
--- NOTE | 2024-11-12 08:45 | MHC.OFFVIS ---
Vital Signs 11/12/24 08:45 Height 5 ft 9 in Weight 213 lb 13.574 oz BMI 31.6 BP 110/66 Blood Pressure Location Lt brachial Position Sitting Pulse 75 Pulse Source Pulse Oximeter Pulse Oximetry (%) 98 Oxygen Delivery Method Room Air Intake Visit Reasons: COPD Network Security Officer Required: Yes Network Security Officer Language: Facs Teacher Services: Network Security Officer Present Network Security Officer Name: Sridevi PIERRE Allergies No Known Allergies [No Known Allergies*] Allergy (Verified 11/12/24 08:48) HPI HPI COPD: Details: Owen is a pleasant 69 year old male, current smoker, with 65 pack year history with underlying moderate COPD, pulmonary nodules and DMII. He was previously prescribed Dulera by PCP but was unable to obtain from pharmacy and Breo was sent in its place. Since initiating he reports mild improvements continuing to use Ventolin frequently. However patient only using Breo twice per week due to inconveniences with removing partials prior to using. He continues to report dyspnea on exertion and dry cough. He denies chest tightness or wheezing. He is enrolled in the lung screening program through [facility], recent LDCT RADS 1 with plan to schedule in one year. Images not available today. He denies any visits to urgent care or hospitalizations related to respiratory distress since the last visit. [facility] Medical History Moderate persistent asthma ARELIS (generalized anxiety disorder) Knee pain Mild persistent asthma, uncomplicated Mild recurrent major depression Hearing loss Physical exam Obese Pure hypercholesterolemia Insomnia Surgical History H/O colonoscopy History of knee replacement procedure of right knee History of knee replacement procedure of left knee Family History Father Pancreatic cancer Mother Chronic mental illness Diabetes Hypertension Stroke Sister Cancer Family/Other Chronic mental illness Social History Household Members: Children Housing: Condominium Are you a primary health care consultant to a significant other at home: No Do you presently have visiting nurse or other home services: No Alcohol intake: former Patient Tobacco Use Status: Current everyday Tobacco user Tobacco use type: Cigarette Cigarette Packs Per Day: 1 Cigarettes Per Day: 20 e-Cigarette/Vaping Use: Never Used Second Hand Smoke Exposure: No service: No Current occupational status: disabled Cognitive needs: No Hearing needs: No Vision needs: Yes Review of Systems Const Denies chills, Denies excessive sweating, Denies fever(s), Denies headache(s) and Denies night sweats Eyes Denies dry eyes, Denies irritation and Denies itchy eyes ENT Reports Normal hearing present, Denies headache(s), Denies nasal congestion, Denies nasal discharge, Denies post nasal drip and Denies sore throat Card Denies chest pain, Denies chest pain at rest, Denies chest pain with activity, Denies claudication, Denies leg edema, Reports dyspnea on exertion, Denies orthopnea and Denies paroxysmal nocturnal dyspnea Resp Denies change in phlegm color, Denies chest congestion, Reports cough, Denies hemoptysis, Denies excessive phlegm production, Denies pain on inspiration, Denies pain with cough, Reports dyspnea on exertion, Denies stridor and Denies wheezing Musc Denies myalgias Neuro Reports Normal hearing present and Denies headache(s) Endo Denies excessive sweating Yoandy/Lymph Denies lymphadenopathy Aller/Immun Denies itchy eyes, Denies seasonal rhinorrhea and Denies wheezing Physical Exam Vital Signs: Last Vital Signs Pulse 75 11/12/24 08:45 Pulse Ox 98 11/12/24 08:45 Oxygen Delivery Method Room Air 11/12/24 08:45 BMI result Body Mass Index 31.6 Const General: cooperative, healthy appearing, comfortable, no acute distress, well developed and alert Nutritional Appearance: obese Orientation/consciousness: patient oriented x3 Limitations: no limitations HEENT Head: Yes normal to inspection, Yes normocephalic and Yes atraumatic Ears: hearing grossly normal bilaterally and external ears normal Eyes General: appearance normal, both eyes and all related structures Eyelids: Yes eyelids normal Sclerae: sclerae normal EOM: EOMs intact bilaterally Neck Neck: Yes normal visual inspection and Yes no lymphadenopathy Lymphatic: no lymphadenopathy noted Chest Chest palpation & inspection: normal inspection of the chest Resp Effort & Inspection: normal respiratory effort, able to speak in complete sentences, no audible wheezes, no cough, no stridor, not tachypneic, no tripod positioning and no use of accessory muscles Auscultation: diminished lung sounds Cardio Jugular venous distension: no JVD Rate: regular rate Rhythm: regular rhythm Skin Other: warm, dry General skin exam: no rashes or lesions noted Neuro General: patient oriented x3 Cranial nerves: Yes Normal hearing present Cognition (Neuro): normal cognition Gait exam (Neuro): Normal gait present Extrem General: Yes normal to inspection, Yes capillary refill normal, Yes no clubbing, cyanosis or edema and Yes no pedal edema Psych Appearance: grossly normal and well kempt Speech and movement: Normal speech and movement present and Clear speech present Affect: normal affect Attitude: cooperative Thought process: Normal thought process present Thought content: Normal thought content present Insight: Good insight present (Psych) Judgement: Good judgement present (Psych) Results Reviewed Results Reviewed: Assessment & Plan Assessment & Plan (1) COPD (chronic obstructive pulmonary disease): Code(s): J44.9 - Chronic obstructive pulmonary disease, unspecified Category: Medical (2) Nicotine dependence, cigarettes, uncomplicated: Code(s): F17.210 - Nicotine dependence, cigarettes, uncomplicated Category: Medical Plan Discussed importance of compliance with Breo to assess effectiveness. Patient will work towards using daily in addition to albuterol MDI. Smoking cessation discussed, patient using NRT intermittently but not ready to quit at this time, continues to smoke about 1 ppd. LDCT 09/2024 performed through [facility], with plan to repeat imaging in one year. Will attempt to obtain images. All questions were answered and patient is in agreement of plan. Will follow up in 3 months or sooner if needed. Coding Level of Care Code Est Pt Level 4 (39368) Diagnoses COPD (chronic obstructive pulmonary disease) J44.9 Nicotine dependence, cigarettes, uncomplicated F17.210
== END 2024-11-12 09:05 | disposition home or self-care (01) ==
LOC: HO.HPS 08:35
PROVIDERS: PCP Internal Medicine; Visit Provider Nurse Practitioner Family
DX: J44.9 Chronic obstructive pulmonary disease, unspecified (principal); F17.210 Nicotine dependence, cigarettes, uncomplicated
CPT/HCPCS: 99214

== ENCOUNTER → 2024-11-12 08:34 | Outpatient (BNVA) | payer OTHER, SELFPAY | PROVIDERS: PCP Internal Medicine; Visit Provider Nurse Practitioner Family | DX: J44.9 Chronic obstructive pulmonary disease, unspecified (principal); F17.210 Nicotine dependence, cigarettes, uncomplicated | CPT/HCPCS: 99212 ==

== ENCOUNTER 2024-11-14 09:48 | Outpatient (AMB) | payer OTHER, SELFPAY ==
--- NOTE | 2024-11-14 09:54 | A.OFFPC_ITS ---
Vital Signs 11/14/24 09:55 Height 5 ft 9 in Weight 210 lb BMI 31.0 BP 110/60 Blood Pressure Location Lt brachial Position Sitting Intake Visit Reasons: dm Intake Note: Patient here for a follow up DM Patch Setter Required: No Accompanied by: Daughter Allergies No Known Allergies [No Known Allergies*] Allergy (Verified 11/14/24 10:09) Medication List - Last Reconciled 11/14/24 by Yulia Montoya MD atorvastatin 80 mg PO BEDTIME 90 days blood sugar diagnostic (FreeStyle Lite Strips) Use 1 test strip once a day blood-glucose meter (FreeStyle Lite Meter kit) As directed Breo Ellipta 100-25 mcg/dose (fluticasone furoate-vilanterol) 1 inh inhalation DAILY NS empagliflozin (Jardiance) 25 mg PO DAILY 90 days lancets (FreeStyle Lancets) Use 1 lancet once a day mometasone-formoterol 50-5 mcg/actuation (Dulera) 2 puffs inhalation Q12H 30 days sertraline 50 mg PO DAILY 90 days Ventolin HFA 90 mcg/actuation (albuterol sulfate) 2 puffs inhalation Q6H PRN 30 days NS Tobacco use date assessed: 11/14/24 Fall risk assessment: No Falls in past year Last assessed Fall Risk: 11/14/24 Dental Screening Dental Screen Date: 07/03/24 HPI HPI Comments 2 History of Present Illness Details The patient is a 69-year-old male presenting with management of chronic conditions including Type 2 Diabetes Mellitus, Hyperlipidemia, Chronic Obstructive Pulmonary Disease, and Depression with Anxiety. His diabetes management has shown improvement with a recent decrease in Hemoglobin A1c to 6. 7, aided by the medication Jardiance. Additionally, he is on Atorvastatin to manage elevated LDL cholesterol. His COPD treatment regimen includes Brio Ellipta for maintenance, with Ventolin for rescue, acknowledging his longstanding smoking history. His mental health continues to be supported by Sertraline, contributing to improved PHQ-9 scores. Ongoing lab monitoring occurs every four months. [facility] Medical History (Updated 11/14/24 @ 10:21 by Yulia Montoya MD) Moderate persistent asthma ARELIS (generalized anxiety disorder) Knee pain Mild persistent asthma, uncomplicated Mild recurrent major depression Hearing loss Physical exam Obese Pure hypercholesterolemia Insomnia Surgical History H/O colonoscopy History of knee replacement procedure of right knee History of knee replacement procedure of left knee Family History Father Pancreatic cancer Mother Chronic mental illness Diabetes Hypertension Stroke Sister Cancer Family/Other Chronic mental illness Social History Household Members: Children [facility] Are you a primary healthcare educator to a significant other at home: No Do you presently have visiting nurse or other home services: No Alcohol intake: former Patient Tobacco Use Status: Current everyday Tobacco user Tobacco use type: Cigarette Cigarette Packs Per Day: 1 Cigarettes Per Day: 20 e-Cigarette/Vaping Use: Never Used Second Hand Smoke Exposure: No service: No Current occupational status: disabled Cognitive needs: No Hearing needs: No Vision needs: Yes Questionnaire PHQ-9 Over the last 2 weeks, how often have you been bothered by any of the following problems? 1. Little interest or pleasure in doing things: not at all 2. Feeling down, depressed, or hopeless: several days 3. Trouble falling or staying asleep, or sleeping too much: not at all 4. Feeling tired or having little energy: more than half the days 5. Poor appetite or overeating: not at all 6. Feeling bad about yourself - or that you are a failure or have let yourself or your family down: several days 7. Trouble concentrating on things, such as reading the newspaper or watching television: several days 8. Moving or speaking so slowly that other people could have noticed. Or the opposite - being so fidgety or restless that you have been moving around a lot more than usual: several days 9. Thoughts that you would be better off or of hurting yourself in some way: not at all Total score: 6 Depression Screening Interpretation: Positive Depression Screening Follow-up: Existing condition, In treatment and Follow-up Visit Requested Depression Screening Done: Yes 43733 - PHQ-9 Billing: Yes Source: Developed by Drs. Joaquin Tirado, Leona Craig, Rigo Parks and colleagues, with an educational rai from [employer]. Thrive Questionnaire Date Thrive assessed: 11/14/24 I am a: Patient What is your living situation today?: I have a steady place to live Within the past 12 months, did the food you bought not last and you didn't have the money to get more?: I choose not to answer this question Within the past 12 months, did you worry whether your food would run out before you got money to buy more?: I choose not to answer this question Do you have trouble paying for medicines?: No Do you have trouble getting transportation to medical appointments?: No Do you have trouble paying your heating and electricity bill?: No Do you have trouble taking care of your child, family member or friend?: No Do you have trouble with day-to-day activities such as bathing, preparing meals, shopping, managing finances, etc.?: Yes Are you currently unemployed and looking for a job?: No Are you interested in more education?: No Please select the resources that you would like help with: None Currently or been in a relationship where the following occur: I choose not to answer THRIVE Score: 0 AUDIT C Alcohol Use Questionnaire (AUDIT-C) 1. How often do you have a drink containing alcohol?: Never Total Score: 0 Score Reviewed/Action Taken: No ARELIS-7 AMB Questionnaire ARELIS-7 Date ARELIS - 7 assessed: 11/14/24 Feeling nervous, anxious, or on edge: 1 = Several days Not being able to stop or control worryin = More than half the days Worrying too much about different things: 2 = More than half the days Trouble relaxin = Nearly every day Being so restless that it is hard to sit still: 2 = More than half the days Becoming easily annoyed or irritable: 2 = More than half the days Feeling afraid as if something awful might happen: 1 = Several days Total ARELIS-7 score (0-4 normal; 5-9 mild; 10-14 moderate; 15-21 severe): 13 Source: Developed by Drs. Joaquin Tirado, Leona Craig, Rigo Parks and colleagues, with an educational rai from [employer]. ARELIS-7 Assessment Billing ARELIS-7 Assessment Tool: ARELIS-7 Assessment 94582 Review of Systems Const All systems reviewed & are unremarkable except as noted in HPI and below Card Denies chest pain at rest, Denies chest pain with activity, Denies edema, Denies irregular heart rhythm, Denies claudication, Denies dyspnea, Denies dyspnea on exertion, Denies orthopnea, Denies paroxysmal nocturnal dyspnea and Denies slow heart rate Resp Denies cough, Denies dyspnea and Denies dyspnea on exertion GI Denies abdominal pain, Denies change in bowel habits, Denies excessive flatus, Denies nausea and Denies vomiting Musc Denies atrophy, Denies deformity and Denies limited range of motion Skin/Breast Denies bleeding lesions, Denies changing lesions and Denies rash Physical exam (Primary Care) Vital Signs: Last Vital Signs BP 110/60 11/14/24 09:55 BMI result Body Mass Index 31.0 Tobacco/Smoking Status: Tobacco use Status Tobacco use date assessed 11/14/24 11/14/24 10:04 Patient Tobacco Use Status Current everyday Tobacco 11/14/24 10:00 Tobacco use type Cigarette 11/14/24 10:00 e-Cigarette/Vaping Use Never Used 11/14/24 10:00 PHQ-9: PHQ-9 Score PHQ-9: Total score 6 11/14/24 10:12 Depression Screening Interpretation: Positive Depression Screening Follow-up: Existing condition, In treatment and Follow-up Visit Requested Thrive Assessment: Date of Thrive Assessment Date Thrive assessed 11/14/24 11/14/24 10:00 Currently or been in a relationship where the following occur: I choose not to answer Resp Effort & Inspection: normal respiratory effort Auscultation: clear to auscultation bilaterally Cardio Jugular venous distension: no JVD Rate: regular rate Rhythm: regular rhythm Heart sounds: S1 normal heart sound present and S2 normal heart sound present Extrem General: Yes full ROM Psych Appearance: grossly normal Results AMB Hemoglobin A1c AMB Hemoglobin A1c 6.7 % Last Edit by LAM August on 11/14/24 10:0 6 Results Reviewed Results Reviewed: Laboratory Last Values Hgb A1c (Clinic) 6.7 % (4.0-6.0) H 11/14/24 09:53 Coding Level of Care Code Est Pt Level 4 (78650) Complex EM visit Add On G2211 Diagnoses COPD (chronic obstructive pulmonary disease) J44.9 Type 2 diabetes mellitus without complication, without long-term current use of insulin E11.9 Diabetes mellitus type: type 2 Diabetes mellitus correction insulin use: without correction use Diabetes mellitus complication status: without complication Mild recurrent major depression F33.0 ARELIS (generalized anxiety disorder) F41.1 Mixed hyperlipidemia E78.2 Additional Codes ARELIS-7 Assessment Billing - ARELIS-7 Assessment Tool: ARELIS-7 Assessment 18240 ([id number]) PHQ-9 - 58292 - PHQ-9 Billing: Yes ([id number]) Time Spent (min) 23 Assessment & Plan Assessment & Plan (1) COPD (chronic obstructive pulmonary disease): Code(s): J44.9 - Chronic obstructive pulmonary disease, unspecified Category: Medical (2) Diabetes mellitus: Code(s): E11.9 - Type 2 diabetes mellitus without complications Category: Medical Qualifiers: Diabetes mellitus type: type 2 Diabetes mellitus correction insulin use: without equipment operator 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 yard use Diabetes mellitus complication status: without complication Qualified Code(s): E11.9 - Type 2 diabetes mellitus without complications (3) Mild recurrent major depression: Code(s): F33.0 - Major depressive disorder, recurrent, mild Category: Medical (4) ARELIS (generalized anxiety disorder): Code(s): F41.1 - Generalized anxiety disorder Category: Medical (5) Mixed hyperlipidemia: Code(s): E78.2 - Mixed hyperlipidemia Category: Medical Plan Management of Type 2 Diabetes Mellitus will continue with the effective use of Jardiance, and adherence is emphasized considering recent improvements in A1c levels. Hyperlipidemia is managed with Atorvastatin, and continual monitoring of cholesterol levels is needed. COPD maintenance is supported by the Jhony Ellipta, with Ventolin for acute use. Continued encouragement for smoking cessation is important. Sertraline remains the treatment for mental health, with noted improvements. Regular assessments for arthritis impact are advised, and quarterly lab tests will monitor overall health and adjust medications accordingly. Patient was informed and verbally consented to the use of an ambient scribe for clinic note documentation during this visit. During the visit, I discussed the importance of continuing Jardiance due to its favorable impact on A1c levels in managing diabetes. Atorvastatin was reinforced as necessary for cholesterol control with persistent monitoring. I stressed the importance of COPD management through continued use of the prescribed inhalers and actively discussed smoking cessation?s significant benefits on respiratory and overall health. We reviewed the continuation of Sertraline for mental health improvement. Further, I explained that arthritis management would be revisited during future evaluations to ensure optimal physical function. Follow-up laboratory testing is scheduled in four months to assess health status and the effectiveness of current therapies. Orders: Orders AMB Hemoglobin A1c Today E11.9 - Type 2 diabetes mellitus without complications IRON PROFILE 4 Months D64.9 - Anemia, unspecified Comprehensive [place]. Panel Fast 4 Months E11.9 - Type 2 diabetes mellitus without complications Lipid Panel 4 Months E78.5 - Hyperlipidemia, unspecified Microalbumin, Random (w Creat) 4 Months R80.9 - Proteinuria, unspecified Complete Blood Count Auto Diff 4 Months D64.9 - Anemia, unspecified Medications: New Shower Chair As directed 1 ea 0RF M17.9 - Osteoarthritis of knee, unspecified Refilled blood-glucose meter (FreeStyle Lite Meter kit) As directed 1 ea 0RF E11.9 - Type 2 diabetes mellitus without complications blood sugar diagnostic (FreeStyle Lite Strips) Use 1 test strip once a day 50 ea 6RF E11.9 - Type 2 diabetes mellitus without complications lancets (FreeStyle Lancets) Use 1 lancet once a day 100 ea 3RF E11.9 - Type 2 diabetes mellitus without complications Discontinued mometasone-formoterol 50-5 mcg/actuation (Dulera) Discontinued Reason: Patient Completed Course 2 puffs inhalation Q12H 30 days 13 grams 6RF J44.9 - Chronic obstructive pulmonary disease, unspecified Patient Instructions: - Continue Jardiance as prescribed for diabetes management. - Adhere to Atorvastatin prescription to manage cholesterol levels. - Use Brio Ellipta daily for COPD; Ventolin as needed for flare-ups. - Work on reducing smoking with the goal of cessation. - Continue Sertraline once daily for depression and anxiety. - Monitor symptoms of arthritis; discuss if symptoms worsen. - Return for lab tests in four months to reassess health management. - Follow a balanced diet and discuss any difficulties with lifestyle changes.
[2024-11-14 09:55] VITALS: BP 110/60; BMI 31.0
--- OUTSIDE RECORDS SUMMARY | 2024-11-14 11:10 | XMS_ITS ---
Author Organization [facility] Address [address] [place] [address] Support Name Relationship Address Phone PATHAK, ALBERTOMARY Emergency Contact [address] [place], [place] [phone] IVA HUNTER Guarantor Unknown Care Team Providers Care Spa Concierge Name Role Phone Yulia Centeno Primary Care Provider UnavailJoaquin Lai Unavailable [phone] Allergies No Known Allergies REASON FOR VISIT [...] N/A Encounters Encounter Location Date Provider Diagnosis [facility] [address] [place] [address] 11/02/2024 Joaquin Day Constipation, unspecified constipation type [...] colonoscopy. Of note, we shall have a director biomedical engineering present on the day of the procedure [...] colonoscopy. Of note, we shall have a director biomedical engineering present on the day of the procedure [...] colonoscopy. Of note, we shall have a director biomedical engineering present on the day of the procedure [...] colonoscopy. Of note, we shall have a director biomedical engineering present on the day of the procedure [...] colonoscopy. Of note, we shall have a director biomedical engineering present on the day of the procedure [...] colonoscopy. Of note, we shall have a director biomedical engineering present on the day of the procedure for further discussion with Iav as well. Iva and his family seemed [...] Provider Name:Joaquin Day , 01/28/2025 11:40:00 AM, [address] [place] [address] , [place], [place], [phone], Progress Notes * CARLOS EDUARDO HUNTEROB: (69 yo M)Acc No.[id number]:11/02/2024 Progress Notes Patient:ALBERTO GUILLEN Provider:?Joaquin Day MD :1955???Age:69 Y???Sex:Male Mio e:11/02/2024 Address:[address] [place] [address] [facility] Pcp:Yulia Montoya Subjective: * Chief Complaints: * [...] a normal liver profile. * Medical History:?Denies [place],C [place],renal disease, Asthma/COPD, Colonoscopy 12/2014 with small [...] colonoscopy. Of note, we shall have a director biomedical engineering present on the day of the procedure [...] administered - Refused: Patient decision) * Procedure Codes:?02628 DIAGN OSTIC COLONOSCOPY * Preventive Medicine:? ??Counseling:?Care [...] MD Date:? 025 Generated for Chance puentes/Delia/Piedad on:?11/14/2024 11:10 AM EDT History and Physical Notes * [...]
--- OUTSIDE RECORDS SUMMARY | 2024-11-14 11:11 | XMS_ITS | Patient Health Record ---
Author Organization [facility] Address [address] [place] [address] Support Name Relationship Address Phone PATHAK RAVIBELLE Emergency Contact [address] [place], [place] [phone] IVA HUNTER Guarantor Unknown Care Team Providers Care Certified Coatings Inspector Name Role Phone Yulia Centeno Primary Care Provider Joaquin Howard [phone] Allergies No Known Allergies Reason For Referral [...] Problem Screening for malignant neoplasm of colon (452667600) Encounter for screening for malignant neoplasm of colon (Z12.11) Active confirmed Problem History of adenomatous polyp of colon (910549046) History of adenomatous polyp of colon (Z86.010) Active confirmed Problem Pre-procedure evaluation check (875989067) Encounter for other preprocedural examination (Z01.818) Active confirmed Problem 499129409 Fatty liver (K76.0) Active confirmed Problem 23485082 Constipation, unspecified constipation type (K59.00) Active confirmed Problem Diverticulosis of colon (772745741) Diverticulosis of colon (K57.30) Active confirmed Problem 484111841 Left lower quadrant abdominal pain (R10.32) Active confirmed Vital Signs Temperature 97.5 degrees Fahrenheit 11/02/2024 Blood pressure diastolic 01 mm Hg 11/02/2024 Height 67.5 in 11/02/2024 Blood pressure systolic 001 mm Hg 11/02/2024 Weight 213.2 lbs 11/02/2024 BMI 32.9 kg/m2 11/02/2024 Procedures Procedure Date Ordered Date Performed Result Body Sit e COLONOSCOPY 11/02/2024 N/A Encounters Encounter Location Date Provider Diagnosis [facility] [address] [place] [address] 11/02/2024 Joaquin Day Constipation, unspecified constipation type K59.00 ; Diverticulosis of colon K57.30 ; History of adenomatous polyp of colon Z86.010 ; Encounter for other preprocedural examination Z01.818 ; Encounter for screening for malignant neoplasm of colon Z12.11 and Left lower quadrant abdominal pain R10.32 [facility] [address] [place] [address] 11/02/2024 Joaquin Day Assessments Encounter Date Diagnosis [...] colonoscopy. Of note, we shall have a bilingual medical assistant present on the day of the procedure [...] colonoscopy. Of note, we shall have a bilingual medical assistant present on the day of the procedure [...] colonoscopy. Of note, we shall have a bilingual medical assistant present on the day of the procedure [...] colonoscopy. Of note, we shall have a bilingual medical assistant present on the day of the procedure [...] colonoscopy. Of note, we shall have a bilingual medical assistant present on the day of the procedure [...] colonoscopy. Of note, we shall have a bilingual medical assistant present on the day of the procedure [...] Name:Joaquin Day , 01/28/2025 11:40:00 AM, [address] [place] [address] , [place], [place], [phone], Insurance Providers Payer Name Payer Address Payer Phone Subscriber Number Group Number Insured Name Patient Relationship to Insured Coverage Start Date Coverage End Date [facility] [address] Attn Claims [place]KUR Gómez [id number] IVA HUNTER Self - patient is the [...]
--- OUTSIDE RECORDS SUMMARY | 2024-11-14 11:11 | XMS_ITS | Clinical Summary ---
Author Organization [facility] [address] [place] [address] Phone Care Team Providers Care Canine Service Instructor Trainer Name Role Phone Yulia Montoya MD Primary Care Provider [phone] Encounters Date Type Department Care Team Description 10/13/2024 7:19 AM EDT - 10/13/2024 11:59 PM EDT Hospital Encounter [facility] CT Scan [address] [place] [address] Encounter for screening for malignant neoplasm of respiratory organs; Nicotine dependence, cigarettes, uncomplicated Discharge Disposition: Home or Self Care 09/27/2024 Telephone Lung Screening Program - [address] [place] [address] Tisha Craig [place] from Last [...] Signed Date: 10/15/2024 10:06 ET Workstation ID: [id number] Transcribed By: Self Edit Transcribed Date: 10/15/2024 [...] Signed Date: 10/15/2024 10:06 ET Workstation ID: [id number] Transcribed By: Self Edit Transcribed Date: 10/15/2024 09:56 ET Nesha Kaur MD IMG CT PROCEDURES Final Result from Last 3 Months Insurance [facility] Member Subscriber Plan / Payer (Ef fective 2023-Present) Name:Owen Garg Relation to Subscriber:Self Name:Owen Garg Payer ID:[id number] Group ID:[id number] Type:Not on file Address: [place] [address] [place] [phone] Care Teams Canine Service Instructor Trainer Relationship Specialty Start Date End Date Yulia Montoya MD [address] [place] [address] , [address] Physician Associ D/B/A: [facility] ANA Lucero PCP - General Internal Medicine 07/14/21
--- OUTSIDE RECORDS SUMMARY | 2024-11-14 11:11 | XMS_ITS ---
Author Organization [facility] Address [address] [place] [address] Support Name Relationship Address Phone PATHAK, ALBERTOMARY Emergency Contact [address] [place], [place] [phone] IVA HUNTER Guarantor Unknown Care Team Providers Care Head Worker Name Role Phone Yulia Centeno Primary Care Provider UnavailJoaquin Lai Unavailable [phone] Allergies No Known Allergies REASON FOR VISIT [...] Problem Status W/U Status Risk Notes Problem 85787649 Constipation, unspecified constipation type (K59.00) Active confirmed Problem 796594888 Left lower quadrant abdominal pain (R10.32) Active confirmed Problem 349432987 Fatty liver (K76.0) Active confirmed Vital Signs Temperature 98.7 degrees Fahrenheit 07/26/19 24 Blood pressure systolic 00 mm Hg 07/26/19 24 Blood pressure diastolic 00 mm Hg 024 Height 67.5 in 07/26/2023 Weight 213 lbs 07/26/2023 BMI 32.86 kg/m2 07/26/2023 Encounters Encounter Location Date Provider Diagnosis [facility] [address] [place] [address] 07/26/2023 Joaquin Day Constipation, unspecified constipation type [...] Provider Name:Joaquin Day , 01/28/2025 11:40:00 AM, [address] [place] [address] , [place], [place], [phone], Progress Notes * ALBERTO HUNTERIMEDOB: (68 yo M)Acc No.[id number]:07/26/2023 Progress Notes Patient:?ALBERTO HUNTER Provider:?Joaquin Day MD :1955???Age:67 Y???Sex:Male Mio e:07/26/2023 Address:[address] [place], [place] [id number] Pcp:Yulia Montoya Subjective: * Chief Complaints: * ???Patient presents today fo r [facility]. * HPI: ???incontinence:? I saw Iva in the office today for evaluation of constipation, left- sided abdominal discomfort, personal history of tubular adenomas of the colon, history of diverticulosis, and discussion of colorectal cancer screening. He was accompanied by his daughter Lita, but his ujihuqcq-sk-ycq Alaina served as christmas tree farmer over the cell phone. ?I last saw [...] Procedure Codes:?3017F COLOR ECTAL CA SCREEN DOC [id number] Pt scrn tbco and id as [id number] BP SCR NOT PRFRM REC REASON NOS * Preventive Medicine:? ??Counseling:?Care goal follow-up plan:?Above Normal BMI Follow-up?Giving encouragement to exercise,?BMI management provided?Yes.? * Follow Up:?prn * * Sign off status: Completed true * Provider:?Joaquin Day MD Date:? 024 Generated for Harii dhaval/Delia/eTransmitting on:?11/14/2024 11:10 AM EDT History and Physical Notes * HPI (History of Present Illness) Category Sub-Category Detail Notes Category Not es incontinence I saw Iva in the office today for evaluation of constipation, left-sided abdominal discomfort, personal history of tubular adenomas of the colon, history of diverticulosis, and discussion of colorectal cancer screening. He was accompanied by his daughter Lita, but his hxiejmeg-mr-map Alaina served as christmas tree farmer over the cell phone. I last saw [...]
--- OUTSIDE RECORDS SUMMARY | 2024-11-14 11:11 | XMS_ITS ---
Author Organization [facility] Address [address] [place] [phone] Support Name Relationship Address Phone BOOKER PATHAK Emergency Contact [address] [place], [place] [phone] IVA HUNTER Guarantor Unknown Care Team Providers Care Department Secretary Name Role Phone Yulia Centeno Primary Care Provider Unavailab Joaquin Castro [phone] REASON FOR VISIT bowel prep Encounters Encounter Location Date Provider Diagnosis [facility] [address] [place] [phone] 11/02/2024 Joaquin Day Plan Of Treatment Next Appt Details Provider Name:Joaquin Day , 01/28/2025 11:40:00 AM, [address] [place] [address] , [place], [place], [phone], Progress Notes * CARLOS EDUARDO HUNTEROB: (69 yo M)Acc No.[id number]:11/02/2024 Patient:?ALBERTO HUNTER :1955???Age:69 Y???Sex:Male Address:[address] [place] [address] [place], [address] * true * Date:? Generated for Printi ng/Laithg/eTransmitting on:?11/14/2024 11:10 AM EDT
== END 2024-11-14 10:44 | disposition home or self-care (01) ==
LOC: HO.HMCH 09:49
PROVIDERS: PCP Internal Medicine; Visit Provider Internal Medicine
DX: J44.9 Chronic obstructive pulmonary disease, unspecified (principal); E11.9 Type 2 diabetes mellitus without complications; F33.0 Major depressive disorder, recurrent, mild; F41.1 Generalized anxiety disorder; E78.2 Mixed hyperlipidemia

== ENCOUNTER → 2024-11-14 09:48 | Outpatient (BNVA) | payer OTHER, SELFPAY | PROVIDERS: PCP Internal Medicine; Visit Provider Internal Medicine | DX: E11.9 Type 2 diabetes mellitus without complications (principal); E78.5 Hyperlipidemia, unspecified; J44.9 Chronic obstructive pulmonary disease, unspecified; F33.0 Major depressive disorder, recurrent, mild; F41.1 Generalized anxiety disorder; E78.2 Mixed hyperlipidemia; D64.9 Anemia, unspecified; R80.9 Proteinuria, unspecified | CPT/HCPCS: 83036; 96127; 99212 ==

== ENCOUNTER 2024-11-22 13:24 | Outpatient (AMB) | payer OTHER, SELFPAY ==
--- NOTE | 2024-11-22 13:27 | AM.OFFWIN_ITS ---
Intake Vital Signs 11/22/24 13:28 Height 5 ft 9 in BP 106/70 Blood Pressure Location Lt brachial Position Sitting Pulse 73 Pulse Source Pulse Oximeter Temp 98.3 F Temp Source Oral Pulse Oximetry (%) 98 Intake Visit Reasons: EP pain all over & feeling nervous Patient Tobacco Use Status: Current everyday Tobacco user Cloth Seconds Sorter Required: Yes Cloth Seconds Sorter Language: Bulgarian Information Interpreted: non-clinical & clinical Allergies No Known Allergies [No Known Allergies*] Allergy (Verified 11/22/24 13:28) Do you need a note to return to daycare/school/sports/work: No HPI HPI Comments History of Present Illness Details This is a 69-year-old Bulgarian-speaking male with a past medical history of hyperlipidemia, COPD not currently oxygen dependent, [id number] diabetes and tobacco use presenting with his daughter for evaluation of chest pain, headache and weakness and he has had for the past 3 days. This patient is seen utilizing a combatant diver qualified Spike #[id number]. Patient states that his chest pain is constant and has been unchanged for the past 3 days. He describes the pain as a pressure like sensation coupled with a cough and intermittent shortness for breath. Patient also reports having chills without fevers, nausea without vomiting and generalized weakness. Patient denies any episodes of hypoglycemia or hyperglycemia. [facility] Medical History Moderate persistent asthma ARELIS (generalized anxiety disorder) Knee pain Mild persistent asthma, uncomplicated Mild recurrent major depression Hearing loss Physical exam Obese Pure hypercholesterolemia Insomnia Surgical History H/O colonoscopy History of knee replacement procedure of right knee History of knee replacement procedure of left knee Family History Father Pancreatic cancer Mother Chronic mental illness Diabetes Hypertension Stroke Sister Cancer Family/Other Chronic mental illness Social History Household Members: Children Housing: Condominium Are you a primary associate director career services to a significant other at home: No Do you presently have visiting nurse or other home services: No Alcohol intake: former Patient Tobacco Use Status: Current everyday Tobacco user Tobacco use type: Cigarette Cigarette Packs Per Day: 1 Cigarettes Per Day: 20 e-Cigarette/Vaping Use: Never Used Second Hand Smoke Exposure: No service: No Current occupational status: disabled Cognitive needs: No Hearing needs: No Vision needs: Yes Review of Systems Const All systems reviewed & are unremarkable except as noted in HPI and below Reports no additional complaints, Reports chills and Denies fever(s) Eyes Reports no additional complaints ENT Reports no additional complaints Card Reports chest pain, Reports chest pain at rest, Reports chest pain with ac tivity, Denies syncope, Denies rapid heart rate and Reports dyspnea Resp Reports cough and Reports dyspnea GI Reports no additional complaints, Reports nausea and Denies vomiting Musc Reports no additional complaints Skin/Breast Reports system reviewed and no additional complaints, except as documented Neuro Reports no additional complaints and Denies syncope Psych Reports no additional complaints Endo Reports no additional complaints Yoandy/Lymph Reports no additional complaints Aller/Immun Reports no additional complaints Physical Exam Const General: cooperative, healthy appearing, alert and awake; No ill appearing Nutritional Appearance: well nourished Orientation/consciousness: patient oriented x3 Limitations: no limitations Resp Auscultation: wheezes expiratory wheezes and throughout Cardio Rate: regular rate Rhythm: regular rhythm Neuro General: patient oriented x3 Psych Appearance: grossly normal Mental Status: mental status grossly normal Insight: Good insight present (Psych) Judgement: Good judgement present (Psych) Results Reviewed Results Reviewed: EKG NSR rate of 78bpm Assessment & Plan Assessment & Plan (1) Chest pain: Comment: Patient's HEART score is 5; EKG NSR, however patient will be transported to the [facility] for further cardiac monitoring. Expect called to BRITNEY Franks at 14:14. 325mg ASA given. Code(s): R07.9 - Chest pain, unspecified Qualifiers: Chest pain type: unspecified Qualified Code(s): R07.9 - Chest pain, unspecified Plan: Patient transferred to ED. Orders: Orders AMB EKG-In Office Today R07.9 - Chest pain, unspecified AMB Aspirin Adult Dose Today R07.9 - Chest pain, unspecified Medications: New aspirin 325 mg PO ONCE 1 tab 0RF R07.9 - Chest pain, unspecified Coding Level of Care Code Est Pt Level 4 (46592) Diagnoses Chest pain, unspecified type R07.9 Chest pain type: unspecified
[2024-11-22 13:28] VITALS: BP 106/70; PULSE 73; TEMP 36.8; O2SAT 98
--- OUTSIDE RECORDS SUMMARY | 2024-11-22 13:31 | XMS_ITS ---
Author Organization [facility] Address [address] [place] [address] Support Name Relationship Address Phone BOOKER PATHAK Emergency Contact [address] [place], [place] [phone] IVA HUNTER Guarantor Unknown Care Team Providers Care Placement Assistant Name Role Phone Yulia Centeno Primary Care Provider UnavailJoaquin Lai [phone] Allergies No Known Allergies REASON FOR VISIT [...] N/A Encounters Encounter Location Date Provider Diagnosis [facility] [address] [place] [address] 11/02/2024 Joaquin Day Constipation, unspecified constipation type K59.00 ; Left lower quadrant abdominal pain R10.32 ; Diverticulosis of colon K57.30 ; History of adenomatous polyp of colon Z86.010 ; Encounter for other preprocedural examination Z01.818 and Encounter for screening for malignant neoplasm of colon Z12.11 Assessments Encounter Date Diagnosis (ICD Code) Assessment [...] colonoscopy. Of note, we shall have a medical surgical tech present on the day of the procedure [...] colonoscopy. Of note, we shall have a medical surgical tech present on the day of the procedure [...] colonoscopy. Of note, we shall have a medical surgical tech present on the day of the procedure [...] colonoscopy. Of note, we shall have a medical surgical tech present on the day of the procedure [...] colonoscopy. Of note, we shall have a medical surgical tech present on the day of the procedure [...] colonoscopy. Of note, we shall have a medical surgical tech present on the day of the procedure [...] Order Date COLONOSCOPY 11/02/2024 Next Appt Details Follow Up: prn, Reason: Provider Name:Joaquin Day , 01/28/2025 11:40:00 AM, [address] [place] [address] , [place], [place], [phone], Progress Notes * CARLOS EDUARDO HUNTEROB: (69 yo M)Acc No.[id number]:11/02/2024 Progress Notes Patient:?ALBERTO HUNTER Provider:?Joaquin Day MD :1955???Age:69 Y???Sex:Male Mio e:11/02/2024 Address:[address] [place], [place] [id number] Pcp:Yulia Montoya Subjective: * Chief Complaints: * ???Patient presents today fo r a COLON SCREENING * HPI: ???incontinence:? I saw Iva in the office today for evaluation of his personal history of tubular adenomas of the colon, discussion of colorectal cancer screening, constipation, chronic left-sided abdominal discomfort, and history of diverticulosis. He was accompanied by his daughter for this visit. His daughter had another relative over the phone for help with interpreting for the entire visit. [...] 25%, and a normal liver profile. * ROS:?General/Constitutional:?Change in appetite?denies.?Chills?denies.?Fatigue?denies.?Ophthalmologic:?Patient denies? Negative..?ENT:?Patient denies?Negative..?Respiratory:?Patient denies?No coughing/hemoptysis..?Cardiovascular:?Patient denies? No chest pain/orthopnea..?Gastrointestinal:?Comments?See HPI for details.?Genitourinary:?Patient denies? No dysuria/hematuria..?Incontinence?denies.?Musculoskeletal:?Comments? Arthritis in his knees.?Skin:?Patient denies?No rash/pruritus..?Neurologic:?Patient denies? No headaches/seizures..?Psychiatric:?Patient denies?Negative..? * Medical History:? * Surgical History:?Bilateral knee replacements 2015 * Hospitalization/Major Diagno stic [...] unemployed. ???smokes 1/2 ppd; no alcohol. * Medications:?TakingVentolin HFA 108 (90 Base) MCG/ACT Aerosol Solution 1 puff as needed Inhalation every 4 hrs Sertraline HCl 50 MG Tablet 1 tablet Orally Once a day Dulera 100-5 MCG/ACT Aerosol as directed Inhalation Jardiance 10 MG Tablet 1 tablet Orally Once a day Atorvastatin Calcium 20 MG Tablet Oral metFORMIN HCl 500 MG Tablet Oral Dicyclomine HCl 10 MG Capsule 1 or 2 capsules Orally Every 6 hours as needed for left-sided abdominal discomfort Metamucil 0.36 GM Capsule 2 capsules with 8 ounces of liquid Orally Once a day MiraLax 17 GM/SCOOP Powder 1 scoop mixed with 8 ounces of fluid Orally Twice a day Medication List reviewed and reconciled with the patientTaking Ventolin HFA 108 (90 Base) MCG/ACT Aerosol Solution 1 puff as needed Inhalation every 4 hrs Taking Sertraline HCl 50 MG Tablet 1 tablet Orally Once a day Taking Dulera 100-5 MCG/ACT Aerosol as directed Inhalation Taking Jardiance 10 MG Tablet 1 tablet Orally Once a day Taking Atorvastatin Calcium 20 MG Tablet Oral Taking metFORMIN HCl 500 MG Tablet Oral Taking Dicyclomine HCl 10 MG Capsule 1 or 2 capsules Orally Every 6 hours as needed for left-sided abdominal discomfort Taking Metamucil 0.36 GM Capsule 2 capsules with 8 ounces of liquid Orally Once a day Taking MiraLax 17 GM/SCOOP Powder 1 scoop mixed with 8 ounces of fluid Orally Twice a day Medication List reviewed and reconciled with the patient * Allergies:?N.K.D.A.yes[Aller gies Verified] Objective: * Vitals:?Wt:213.2lbs, Ht: 67. 5 in, BMI:32.9Index, BP:001/01mm Hg, Temp:97.5, Wt- k.71. * Examination: ???General Examination: ?GENERAL APPEARANCE:?pleasant, well [...] , alert and oriented.? Assessment: * Assessment: 1.?Left lower quadrant abdom inal pain - R10.32 (Primary)???2.?Constipation, unspecified constipation type - K59.00???3.?Diverticulosis of colon - K57.30???4.?History of adenomatous polyp of colon - Z86.010???5.?Encounter for other preprocedural examination - Z01.818???6.?Encounter for screening for malignant neoplasm of colon - Z12.11?Overall, Iva is not havin g any particularly [...] colonoscopy. Of note, we shall have a medical surgical tech present on the day of the procedure for further discussion with Iva as well. Iva and his family seemed comfortable with this plan. Thank you again for allowing me to participate in Iva's care. I shall continue to keep you advised of his progress. Plan: * Treatment: Notes: Use the Dicyclomine for the abdominal discomfort.??2.?Constipation, unspecified constipation type?Procedure: COLONOSCOPY* With MAC. Do not take the Ja rdiance for 3 days before the colonoscopy. Do not take Metformin the night before or on the day of the colonoscopy.sched for 01/28/25 at 11:40 am2 day miralax prep Notes: Start using daily Miralax for the constipation??3.?Others? Refill MiraLax Powder, 17 GM/SCOOP, 1 scoop [...] administered - Refused: Patient decision) * Procedure Codes:?56838 DIAGN OSTIC [id number] COLORECTAL CA SCREEN DOC [id number] Pt scrn tbco and id as [id number] BP SCR NOT PRFRM REC REASON [id number] RCMND FLW-UP 10 YRS DOCD * Preventive Medicine:? ??Counseling:?Care goal follow-up plan:?Above [...] of Care:?Not documented, no reason specified.? * Follow Up:?prn * * Sign off status: Completed true * Provider:?Joaquin Day MD Date:? 025 Generated for Chance puentes/Delia/Piedad on:?11/22/2024 01:31 PM EDT History and Physical Notes * HPI [...] daughter had another relative over the phone for help with interpreting for the entire visit. [...] of 25%, and a normal liver profile. Examination Category Sub-Category Detail Notes Category Not [...]
== END 2024-11-22 14:20 | disposition home or self-care (01) ==
PROVIDERS: PCP Internal Medicine; Visit Provider Physician Assistant
DX: R07.9 Chest pain, unspecified (principal)

== ENCOUNTER → 2024-11-22 13:24 | Outpatient (BNVA) | payer OTHER, SELFPAY | PROVIDERS: PCP Internal Medicine; Visit Provider Physician Assistant | DX: Z13.89 Encounter for screening for other disorder (principal) | CPT/HCPCS: 93005; 99212 ==

== ENCOUNTER 2024-11-22 14:50 | Emergency (ER) | payer OTHER, SELFPAY ==
--- NOTE | ~2024-11-22 | CT_ITS ---
CLINICAL HISTORY: chest pain, SOB CT chest with contrast Comparison: None Findings: The heart size is normal. The visualized thyroid and mediastinum are unremarkable. Calcified granuloma within the left upper lobe. No consolidation or pleural fluid. No significant interstitial abnormalities. Minimal dependent changes within the lower lobes. The liver is mildly hypodense suggesting possible fatty infiltration. No acute abnormality of the visualized abdomen. The bones are intact. IMPRESSION: 1. No acute cardiopulmonary disease. This document has been electronically signed by: Chula Munroe MD on 11/22/2024 17:56:28
--- NOTE | ~2024-11-22 | XR_ITS ---
EXAMINATION: XR CHEST 2 VIEWS HISTORY: chest pain COMPARISON: Comparison is made with the prior examination dated 06/12/2017. FINDINGS: PA and lateral views of the chest are submitted. There is a nodular density seen in the anterior clear space on the lateral view which may be in the right middle lobe or lingula. There are no focal airspace opacities. There is no pleural effusion, pneumothorax, or pulmonary vascular congestion. The heart is normal in size. The bones are intact. XR/XR chest 2V IMPRESSION: Nodular density seen anteriorly on the lateral view which may be in the right middle lobe and lingula. Further evaluation with chest CT is recommended, which could be performed as an outpatient. Electronically signed by: Joaquin Callejas MD 11/22/2024 03:27 PM EDT
--- NOTE | 2024-11-22 15:07 | ECG_ITS ---
Test Reason : CHEST PAIN Blood Pressure : */* mmHG Vent. Rate : 66 BPM Atrial Rate : 66 BPM P-R Int : 144 ms QRS Dur : 82 ms QT Int : 402 ms P-R-T Axes : 0 36 46 degrees QTcB Int : 421 ms Normal sinus rhythm Cannot rule out Anterior infarct , age undetermined Abnormal ECG When compared with ECG of 18-Apr-2023 14:30, Nonspecific T wave abnormality now evident in Anterior leads Referred By: Generic ED Physician Electronically Signed By: TOM CAMERON MD
[2024-11-22 15:09] VITALS: BP 111/76; PULSE 79; O2SAT 96
[2024-11-22 15:10] VITALS: BP 111/50; PULSE 68; RESP 18; TEMP 36.1; O2SAT 95; BMI 31.5
--- NOTE | 2024-11-22 15:10 | ED_ITS ---
HPI - General Adult General Chief complaint: Chest Pain Stated complaint: SHARP CP X3D PER EMS Time Seen by Provider: 11/22/24 15:10 Source: patient, family (patient's daughter), EMS and court interpreter (all interactions with this patient were facilitated with an [facility] bilingual interpreter) Mode of arrival: EMS Limitations: language barrier (all interactions with this patient were facilitated with an [facility] bilingual interpreter) History of Present Illness ED Provider: Kiersten Alves PA-C HPI narrative: Patient is a 69 year old assigned male at with a history of tobacco use, PRESCOTT, COPD, HLD, ARELIS, MDD, and OA presenting to the emergency department today with weakness, fatigue, and left sided chest pain. Patient states that over the last 3 days he has felt generally unwell with left sided chest pain, weakness, and fatigue. Patient denies any dizziness, lightheadedness, abdominal pain, nausea, vomiting, fever, chills, blurry vision, double vision, loss of vision, difficulty breathing, shortness of breath, back pain, night sweats, pain with urination, increased urinary frequency, increased urinary urgency, blood in his urine or stool, syncope or a near syncopal episode, recent trauma or falls, bowel incontinence, bladder incontinence, or any other complaints at this time. Onset (ago): day(s) (3) Relieving factors: none Exacerbating factors: none Associated symptoms: chest pain and weakness Treatments prior to arrival: aspirin Related Data Home Medications ?Medication ?Instructions ?Recorded ?Confirmed dicyclomine 10 mg capsule mg PO 11/22/24 polyethylene glycol 3350 17 g PO BID 11/22/24 gram/dose oral powder (Gavilax) Previous Rx's ?Medication ?Instructions ?Recorded Ventolin HFA 90 mcg/actuation 2 puff inhalation Q6H PRN 08/30/23 aerosol inhaler (albuterol sulfate) shortness of breath or wheezing 30 days #8 grams sertraline 50 mg tablet 50 mg PO DAILY 90 days #90 tabs 08/30/23 atorvastatin 80 mg tablet 80 mg PO BEDTIME 90 days #90 tabs 01/30/24 empagliflozin 25 mg tablet 25 mg PO DAILY 90 days #90 tabs 07/03/24 (Jardiance) Breo Ellipta 100 mcg-25 mcg/dose 1 inh inhalation DAILY #60 ea 11/01/24 powder for inhalation (fluticasone furoate-vilanterol) Shower Chair #1 ea 11/14/24 blood sugar diagnostic (FreeStyle #50 ea 11/14/24 Lite Strips) blood-glucose meter (FreeStyle #1 ea 11/14/24 Lite Meter kit) lancets 28 gauge (FreeStyle #100 ea 11/14/24 Lancets) Allergies Allergy/AdvReac Type Severity Reaction Status Date / Time No Known Allergies Allergy Verified 11/22/24 15:12 [No Known Allergies*] Review of Systems 2 Constitutional: Constitutional: Reports no additional constitutional complaints, Denies chills, Denies fever(s), Denies night sweats and Reports weakness Eyes: Eyes: Reports no additional eye complaints, Denies blurry vision, Denies change in vision, Denies diplopia, Denies eye discharge, Denies loss of vision and Denies eye pain ENT: Denies dizziness Cardiovascular: Cardiovascular: Reports no additional cardiovascular complaints, Reports chest pain, Denies lightheadedness, Denies Loss of Consciousness and Denies dyspnea Respiratory: Respiratory: Reports no additional respiratory complaints and Denies dyspnea Gastrointestinal: Gastrointestinal: Reports no additional gastrointestinal complaints, Denies abdominal pain, Denies melena, Denies hematochezia, Denies change in bowel habits and Denies change in stool character Genitourinary: Genitourinary: Reports no additional male genitourinary complaints, Denies hematuria, Denies oliguria, Denies difficulty urinating, Denies dysuria, Denies urinary frequency, Denies urinary hesitancy, Denies urinary incontinence and Denies urinary urgency Musculoskeletal: Musculoskeletal: Reports no additional musculoskeletal complaints, Denies numbness and Denies tingling Neurologic: Denies dizziness, Denies loss of vision, Denies numbness, Denies tingling and Reports weakness Psychiatric: Psychiatric: Reports no additional psychiatric complaints Endocrine: Endocrine: Reports no additional endocrine complaints Hematologic/Lymphatic: Hematologic/Lymphatic: Reports no additional hematologic/lymphatic complaints Allergic/Immunologic: Allergic/Immunologic: Reports no additional allergic/immunologic complaints PMFSH Past Medical History Attestation statement: The following information was validated with the patient. (patient's daughter validated all information) Source: old records reviewed, obtained from family (patient's daughter provided additional history and confirmed the history provided by the patient.) and nursing notes reviewed Medical History Moderate persistent asthma ARELIS (generalized anxiety disorder) Knee pain Mild persistent asthma, uncomplicated Mild recurrent major depression Hearing loss Physical exam Obese Pure hypercholesterolemia Insomnia Surgical History H/O colonoscopy History of knee replacement procedure of right knee History of knee replacement procedure of left knee Family History Family History Father Pancreatic cancer Mother Chronic mental illness Diabetes Hypertension Stroke Sister Cancer Family/Other Chronic mental illness Social History Social History Household Members: Children Housing: [facility] Are you a primary workforce investment act career manager to a significant other at home: No Do you presently have visiting nurse or other home services: No Alcohol intake: former Patient Tobacco Use Status: Current everyday Tobacco user Tobacco use type: Cigarette Cigarette Packs Per Day: 1 Cigarettes Per Day: 20 Smoked in Last 30 Days: Yes e-Cigarette/Vaping Use: Never Used Second Hand Smoke Exposure: No Use of substances other than those prescribed or required for medical reasons: No Advance Directives: No Advance Directives Information Provided: No Do you have a plan to hurt others: No Plan service: No Current occupational status: disabled Cognitive needs: No Hearing needs: No Vision needs: Yes Physical Exam ED Vital Signs: Vital Signs - 24 hr 11/22/24 15:10 11/22/24 17:41 11/22/24 18:45 Temperature 97.0 F 96.9 F 96.9 F Pulse Rate 68 67 67 Respiratory Rate 18 12 12 Blood Pressure 111/50 L 123/63 123/63 Pulse Oximetry 95 97 97 Oxygen Delivery Method Room Air Room Air Room Air BMI result Body Mass Index 31.5 Const General: cooperative, no acute distress, alert and awake Nutritional Appearance: well nourished Orientation/consciousness: patient oriented x3 HENMT Head: Yes normal to inspection and Yes atraumatic Ears: hearing grossly normal bilaterally and external ears normal General nose exam: Normal external nose present, no nasal discharge noted and no epistaxis Face and sinus: Yes normal facial exam, No abrasion and No laceration Mouth: Normal oral and palatal mucosa present, no drooling and no muffled voice Eyes General: appearance normal, both eyes and all related structures Periorbital: periorbital findings normal Eyelids: Yes eyelids normal Conjunctivae: conjunctivae normal Pupils: Equal, round and reactive pupils present EOM: EOMs intact bilaterally Neck Neck: Yes normal visual inspection, Yes full ROM and Yes no lymphadenopathy Resp Effort & Inspection: normal respiratory effort and able to speak in complete sentences Neuro General: patient oriented x3, moves all extremities and CN's II-XI intact bilaterally Cranial nerves: Yes Equal, round and reactive pupils present Cognition (Neuro): normal cognition Extrem General: Yes normal to inspection, Yes full ROM and Yes capillary refill normal Psych Appearance: grossly normal Mental Status: mental status grossly normal Affect: normal affect Attitude: cooperative Thought process: Normal thought process present Thought content: Normal thought content present Insight: Good insight present (Psych) Medications Administered Discontinued Medications Generic Name Dose Route Start Last Admin Trade Name Freq PRN Reason Stop Dose Admin Iohexol 100 ml 11/22/24 17:12 11/22/24 17:14 Iohexol 350 Mg/Ml 100 Ml Infus..Btl IV 11/22/24 17:13 65 ml ONCE ONE Administration Medical Decision Making Medical Decision Making MDM Narrative: Patient is a 69 year old assigned male at with a history of tobacco use, PRESCOTT, COPD, HLD, ARELIS, MDD, and OA presenting to the emergency department today with weakness, fatigue, and left sided chest pain. Patient's physical exam was unremarkable. Patient's blood work was unremarkable. Patient's EKG was unremarkable. Patient's chest x-ray showed a nodular density in the right middle lobe however, the patient's chest CT was negative for any acute findings. Patient's clinical presentation is most consistent with a viral illness. I explained my physical exam findings as well as all test results to the patient and the patient's daughter. I answered all questions asked by the patient and the patient's daughter. I stressed the importance of the patient taking his medication as directed (either prescribed or as the over the counter packaging recommends). I stressed the importance of the patient following up with his primary care provider. I stressed the importance of the patient returning to the emergency department immediately if his symptoms were to worsen or if he were to develop any dizziness, shortness of breath, difficulty breathing, chest pain, blurry vision, loss of vision, nausea, vomiting, abdominal pain, fever, chills, back pain, or any other complaints. Patient and the patient's daughter verbalized agreement and understanding with this treatment plan and discharge. Differential Diagnosis Differential Diagnoses: The differential diagnosis associated with the presentation includes Fatigue Viral illness STEMI NSTEMI Admission/Observation Consideration of admission/observation: Escalation of care including admission/observation considered Patient would have been admitted to the hospital had his work up had any findings where hospital admission was appropriate and his clinical presentation warranted hospital admission. Lab Data [facility] Lab Attestation statement: I reviewed the patient's lab results. My interpretation of these results are in the MDM Rationale portion of this note. 11/22/24 15:44 11/22/24 15:44 Labs: Lab Results 11/22/24 11/22/24 11/22/24 Range/Units 15:13 15:44 17:44 WBC 12.2 H (4.8-10.8) X10*3/uL RBC 4.65 (4.60-5.80) X10*6/uL Hgb 13.9 L (14.0-18.0) g/dl Hct 42.6 (42.0-52.0) % MCV 91.6 (80.0-98.0) fL MCH 29.9 (27.0-33.0) pg MCHC 32.6 (31.0-36.0) g/dl RDW 13.1 (11.0-16.0) % Plt Count 275 (160-400) X10*3/uL MPV 8.7 L (9.4-12.4) fL Immature Gran % (Auto) 0.6 H (0.0-0.4) % Neut % (Auto) 57.8 (45-73) % Lymph % (Auto) 30.5 (20-40) % [place] % (Auto) 8.5 (2-11) % Eos % (Auto) 2.0 (0-4) % Baso % (Auto) 0.6 (0-2) % Lymph # (Auto) 3.7 (1.2-4.9) X10*3/uL [place] # (Auto) 1.0 (0.1-1.2) X10*3/uL Eos # (Auto) 0.2 (0.0-0.4) X10*3/uL Baso # (Auto) 0.1 (0.0-0.2) X10*3/uL Abs Immat Gran (auto) 0.07 H (0.00-0.03) X10*3/uL Absolute Neuts (auto) 7.1 (2.0-8.3) x10*3/uL Absolute Nucleated RBC 0.000 (0.0-0.012) X10*3/uL Nucleated RBC % (auto) 0.0 (0.0-0.2) /100WBC PT 12.8 H (10.9-12.4) SEC INR 1.1 (0.9-1.1) D-Dimer High Sensitivty 208 NG/ML Sodium 142 (135-145) mmol/L Potassium 4.4 (3.3-5.1) mmol/L Chloride 105 (96-108) mmol/L Carbon Dioxide 28 (22-29) mmol/L Anion Gap 13 (12-20) BUN 13 (9-16) mg/dL Creatinine 0.77 (0.5-1.4) mg/dL Estim Creat Clear Calc 103.9 Estimated GFR > 60 Random Glucose 92 (60-115) mg/dL Calcium 9.5 (8.4-10.2) mg/dL Magnesium 2.2 (1.6-2.6) mg/dL Total Bilirubin 0.6 (0.0-1.0) mg/dL AST 21 (5-37) U/L ALT 22 (0-40) U/L Alkaline Phosphatase 98 (39-117) U/L Troponin I High Sens < 2.7 (<3.5-35.0) ng/L B-Natriuretic Peptide 11 (<100) pg/mL Total Protein 7.5 (6.5-8.0) g/dL Albumin 4.6 (3.5-5.0) g/dL Urine Color Yellow Urine Appearance Clear Urine pH 5.5 (5.0-9.0) Ur Specific [place] >= 1.030 H (1.005-1.025) Urine Protein Trace (Neg-Trace) mg/dL Urine Glucose (UA) 250 H (Negative) mg/dL Urine Ketones Trace (Negative) mg/dL Urine Blood Negative (Negative) Urine Nitrite Negative (Negative) Ur Leukocyte Esterase Negative (Negative) Influenza Type A (PCR) NEGATIVE (Negative) Influenza Type B (PCR) NEGATIVE (Negative) RSV RNA Qual (PCR) NEGATIVE (Negative) SARS-CoV-2 RNA (RT-PCR) NEGATIVE (Negative) Independent Interpretation I performed an independent interpretation of an: EKG, Plain X-Ray and CT Scan Interpretation: My interpretation is in agreement with the radiologist's impression of this imaging study. L EXAMINATION: XR CHEST 2 VIEWS HISTORY: chest pain COMPARISON: Comparison is made with the prior examination dated 06/12/2017. FINDINGS: PA and lateral views of the chest are submitted. There is a nodular density seen in the anterior clear space on the lateral view which may be in the right middle lobe or lingula. There are no focal airspace opacities. There is no pleural effusion, pneumothorax, or pulmonary vascular congestion. The heart is normal in size. The bones are intact. XR/XR chest 2V IMPRESSION: Nodular density seen anteriorly on the lateral view which may be in the right middle lobe and lingula. Further evaluation with chest CT is recommended, which could be performed as an outpatient. Electronically signed by: Joaquin Callejas MD 11/22/2024 03:27 PM EDT RP Dictated By: Joaquin Callejas MD Signed By: Electronically signed by Joaquin Callejas MD 11/22/24 1527 Report Number: [id number]: Total DLP = 375.00 mGy-cm CLINICAL HISTORY: chest pain, SOB CT chest with contrast Comparison: None Findings: The heart size is normal. The visualized thyroid and mediastinum are unremarkable. Calcified granuloma within the left upper lobe. No consolidation or pleural fluid. No significant interstitial abnormalities. Minimal dependent changes within the lower lobes. The liver is mildly hypodense suggesting possible fatty infiltration. No acute abnormality of the visualized abdomen. The bones are intact. IMPRESSION: 1. No acute cardiopulmonary disease. This document has been electronically signed by: Chula Munroe MD on 11/22/2024 17:56:28 Dictated By: Chula Munroe MD Signed By: Electronically signed by Chula Munroe MD 11/22/24 1757 I independently interpreted this EKG and am in agreement with the below findings: Vent. Rate: 66 BPM Atrial Rate: 66 BPM P-R Int: 144 ms QRS Dur: 82 ms QT Int: 402 ms P-R-T Axes: 0 36 46 degrees QTcB Int: 421 ms Normal sinus rhythm Cannot rule out Anterior infarct , age undetermined When compared with ECG of 18-Apr-2023 14:30, Nonspecific T wave abnormality now evident in Anterior leads DD/ 1501 Radiology Impression Discussion of test interpretation with radiology: I have reviewed the radiologist's reading. Independent Historian Clinical information obtained from an independent historian. History obtained from or confirmed by: Other (Patient's daughter provided additional history and confirmed the history provided by the patient.) Discharge Plan Discharge Clinical Impression: Fatigue Chest pain Qualifiers: Chest pain type: unspecified Qualified Code(s): R07.9 - Chest pain, unspecified Patient Disposition: Home, Self-Care Instructions: Chest Pain (DC), Fatigue (ED) Additional Instructions: Your work up today was reassuring there is no emergent cause for your symptoms. Your heart and lungs are normal. Follow up with your primary care provider. Return to the emergency department immediately if your symptoms worsen or if you develop any dizziness, shortness of breath, difficulty breathing, chest pain, blurry vision, loss of vision, nausea, vomiting, abdominal pain, fever, chills, back pain, or any other complaints. Padmaja?seguimiento?con matt m?dico de atenci?n primaria. Acuda inmediatamente al servicio de urgencias si elvira s?ntomas empeoran o si presenta falta de aliento, dificultad para respirar, dolor tor?cico, mareos, aturdimiento, dolor de espalda, dolor abdominal, fiebre, escalofr?os o cualquier otro s?ntoma. Please see the information below about our Patient Portal. If you are not yet enrolled in the [facility] Patient Portal, you will receive an enrollment email invitation following your visit to any [facility] care setting. You may also self-enroll in the Patient Portal by visiting our website: [email or web address] The following information is required to access the Patient Portal: - Your [facility] Medical Record Number - Your personal home email address (must match what is in your electronic medical record, Registration staff can assist with this) - Name - Date of Capabilities of the Patient Portal: - Message some providers - View upcoming appointments - Access your health summary, medical history, and visit history - View current conditions and allergies - View procedure and lab results - View your medications, including guidelines, side effects, and precautions - Complete pre-appointment questionnaires requested by your provider - Ready summary reports of your office visits and procedures To access the Patient Portal Mobile Kwesi, follow these directions: - Search Ule in the Kwesi Store or [employer] Store - Download the Kwesi - Search for [facility] - Enter your login/password Portal del paciente Si usted no esta inscrito en el portal de pacientes de [facility], recibira ame invitacion de inscripcion despues de matt visita al [facility] o al [facility] via correo electronico. Tambien puede inscribirse voluntariamente en el portal de pacientes visitando nuestra pagina web: [email or web address] La siguiente informacion sera requerida para acceder al portal: - Matt priyank de historia medica de [facility] - Matt direccion de correo electronico personal - Nombre - Fecha de nacimiento Capacidades: Las siguientes capacidades estan disponibles en el portal de pacientes: - Enviar mensajes a algunos doctores - Verificar proximas citas - Acceso a matt historial de julia, registro medico e historial de visitas - Pancho las condiciones actuales y alergias pancho procedimientos y resultados del laboratorio - Pancho elvira medicamentos, incluyendo las pautas - Efectos secundarios y precauciones - Completar o llenar formularios / cuestionarios de - Citas solicitadas por matt doctor - Leer los resumenes de reportes medicos de elvira visitas y procedimientos Lavonne acceder a la aplicacion movil: - [facility] [employer] en la Kwesi Store o [employer] - Descargue la aplicacion - [facility] - Ingrese matt nombre de usuario / Contrasena Prescriptions: No Action fluticasone furoate-vilanterol [Breo Ellipta] 100-25 mcg/dose blister with device 1 inh inhalation DAILY Qty: 60 3RF atorvastatin 80 mg tablet 80 mg PO BEDTIME 90 Days Qty: 90 1RF sertraline 50 mg tablet 50 mg PO DAILY 90 Days Qty: 90 1RF albuterol sulfate [Ventolin HFA] 90 mcg/actuation HFA aerosol inhaler 2 puff inhalation Q6H PRN (Reason: shortness of breath or wheezing) 30 Days Qty: 8 2RF Jardiance 25 mg tablet 25 mg PO DAILY 90 Days Qty: 90 1RF (DME) FreeStyle Lite Strips Strip See Rx Instructions .Route Qty: 50 6RF Rx Instructions: Use 1 test strip once a day (DME) blood-glucose meter [FreeStyle Lite Meter] Kit See Rx Instructions .Route Qty: 1 0RF Rx Instructions: As directed (DME) lancets [FreeStyle Lancets] 28 gauge misc See Rx Instructions .Route Qty: 100 3RF Rx Instructions: Use 1 lancet once a day (DME) Shower Chair Misc See Rx Instructions .Route Qty: 1 0RF Rx Instructions: As directed aspirin 325 mg tablet 325 mg PO ONCE Qty: 1 0RF dicyclomine 10 mg capsule PO polyethylene glycol 3350 [Gavilax] 17 gram/dose powder PO BID Referrals: Yulia Centeno MD [Primary Care Provider] - Interventions: ED Discharge Assessment Last Done: 11/22/24 18:45 Discharge Date/Time: 11/22/24 18:46 Print Language: [place] Islander
[2024-11-22 15:17] VITALS: PULSE 66
--- NOTE | 2024-11-22 15:23 | PC.NURSE ---
Report given to INESSA Rothman, to update and inform primary RN.
[2024-11-22 15:49] LABS: MANUAL DIFF FLAG NO
[2024-11-22 15:51] LABS: Basophils Absolute Auto 0.1 X10*3/uL (0.0-0.2); Basophils Percent Auto 0.6 % (0-2); Eosinophils Absolute Auto 0.2 X10*3/uL (0.0-0.4); Hematocrit 42.6 % (42.0-52.0); Hemoglobin 13.9 g/dl (14.0-18.0); Imm Gran Abs Auto 0.07 X10*3/uL (0.00-0.03); Imm Gran Pct Auto 0.6 % (0.0-0.4); Lymphocytes Absolute Auto 3.7 X10*3/uL (1.2-4.9); Lymphocytes Percent Auto 30.5 % (20-40); Mean Corpuscular HGB Conc 32.6 g/dl (31.0-36.0); Mean Corpuscular Hemoglobin 29.9 pg (27.0-33.0); Mean Corpuscular Volume 91.6 fL (80.0-98.0); Mean Platelet Volume 8.7 fL (9.4-12.4); Monocytes Percent Auto 8.5 % (2-11); Neutrophils Absolute Auto 7.1 x10*3/uL (2.0-8.3); Neutrophils Percent Auto 57.8 % (45-73); Platelet Count 275 X10*3/uL (160-400); Red Blood Count 4.65 X10*6/uL (4.60-5.80); Red Cell Distribution Width 13.1 % (11.0-16.0); White Blood Count 12.2 X10*3/uL (4.8-10.8)
[2024-11-22 16:04] LABS: INTERNATIONAL NORM RATIO 1.1 (0.9-1.1); Prothrombin Time 12.8 SEC (10.9-12.4)
[2024-11-22 16:06] LABS: D Dimer High Sensitivity 208 NG/ML
[2024-11-22 16:07] LABS: Magnesium 2.2 mg/dL (1.6-2.6)
[2024-11-22 16:10] LABS: Influenza A PCR NEGATIVE (Negative); Influenza B PCR NEGATIVE (Negative); Resp Syncy Virus RNA Qual PCR NEGATIVE (Negative); SARS COV2 PCR INHOUSE NEGATIVE (Negative)
[2024-11-22 16:14] LABS: B Type Natriuretic Peptide 11 pg/mL (<100)
[2024-11-22 16:16] LABS: Troponin-I High Sensitivity < 2.7 ng/L (<3.5-35.0)
[2024-11-22 17:01] LABS: Alanine Aminotransferase 22 U/L (0-40); Albumin Level 4.6 g/dL (3.5-5.0); Alkaline Phosphatase 98 U/L (39-117); Anion Gap 13 (12-20); Aspartate Amino Transferase 21 U/L (5-37); Bilirubin Total 0.6 mg/dL (0.0-1.0); Blood Urea Nitrogen 13 mg/dL (9-16); Calcium 9.5 mg/dL (8.4-10.2); Carbon Dioxide 28 mmol/L (22-29); Chloride 105 mmol/L (96-108); Creatinine Clr Calc Pharmacy 103.9; Estimated Glomerular Filt Rate > 60; Glucose Random 92 mg/dL (60-115); Potassium 4.4 mmol/L (3.3-5.1); Sodium 142 mmol/L (135-145); Total Protein 7.5 g/dL (6.5-8.0)
[2024-11-22] MEDS: iohexoL 350 MG/ML 100 ML INFUS..BTL IV (17:14)
[2024-11-22 17:41] VITALS: BP 123/63; PULSE 67; RESP 12; TEMP 36.1; O2SAT 97
[2024-11-22 17:58] LABS: Appearance Urine Clear; Color Urine Yellow; Glucose Urine UA 250 mg/dL (Negative); Leukocyte Esterase Urine Negative (Negative); Nitrite Urine Negative (Negative); PH 5.5 (5.0-9.0); Specific Gravity - Urine >= 1.030 (1.005-1.025); Urine Blood Negative (Negative); Urine Ketones Trace mg/dL (Negative); Urine Protein Trace mg/dL (Neg-Trace)
[2024-11-22 18:45] VITALS: BP 123/63; PULSE 67; RESP 12; TEMP 36.1; O2SAT 97
== END 2024-11-22 18:46 | disposition home or self-care (01) ==
PROVIDERS: Physician Assistant Medical; Emergency Provider Emergency Medicine Emergency Medical Services; PCP Internal Medicine
DX: R07.89 Other chest pain (principal); R53.1 Weakness; R53.83 Other fatigue; Z03.818 Encounter for observation for suspected exposure to other biological agents ruled out; Z79.899 Other long term (current) drug therapy
CPT/HCPCS: 0241U; 36415; 71046; 71260; 80053; 81003; 83735; 83880; 84484; 85025; 85379; 85610; 93005; 99212; 99284; 99285; Q9967

== ENCOUNTER → 2024-11-22 15:07 | Outpatient (BNV) | payer OTHER, SELFPAY | PROVIDERS: Emergency Provider Emergency Medicine Emergency Medical Services; PCP Internal Medicine; Visit Provider Internal Medicine Cardiovascular Disease | DX: R94.31 Abnormal electrocardiogram [ECG] [EKG] (principal); R07.9 Chest pain, unspecified | CPT/HCPCS: 93010 ==

== ENCOUNTER → 2024-11-22 15:11 | Outpatient (BNV) | payer OTHER, SELFPAY | PROVIDERS: PCP Internal Medicine; Visit Provider Radiology Diagnostic Radiology | DX: R07.9 Chest pain, unspecified (principal); R06.02 Shortness of breath | CPT/HCPCS: 71046; 71260 ==

== ENCOUNTER 2025-01-04 13:27 | Emergency (ER) | payer OTHER, SELFPAY ==
--- NOTE | ~2025-01-04 | CT_ITS ---
EXAMINATION: CT ABDOMEN AND PELVIS WITH CONTRAST CLINICAL INFORMATION: Left-sided abdominal pain. COMPARISON: 04/19/2023. TECHNIQUE: Multidetector volumetric images were obtained from the superior aspect of the liver through the pubic symphysis following administration 85 mL of Omnipaque 350 intravenous contrast. Sagittal and coronal reformatted images were obtained on the technologist's workstation. Oral contrast: No This CT examination was performed using dose optimization techniques as appropriate, variously including the following: *Automated exposure control *Adjustment of mA and/or kV according to patient size (this includes techniques or standardized protocols for targeted exams where dose is matched to indication/reason for exam; i.e. extremities or head) *Use of iterative reconstruction technique FINDINGS: LUNG BASES: The lung bases demonstrate gravity dependent atelectatic change. They are otherwise clear. The heart size is normal. No pericardial or pleural effusion. Normal GE junction. LIVER, GALLBLADDER, AND BILIARY TREE: The liver is normal in size, shape, and attenuation. No focal hepatic lesion or biliary ductal dilatation is present. The gallbladder is unremarkable with no evidence of radiopaque gallstones, gallbladder wall thickening, or obvious pericholecystic inflammatory changes. PANCREAS: Unremarkable. SPLEEN: Unremarkable. ADRENAL GLANDS: There is mild left hyperplasia. The right adrenal is normal. KIDNEYS AND URETERS: The kidneys are normal in size, shape, and attenuation. No hydronephrosis, hydroureter, or calculi seen. No perinephric stranding. There is a left mid pole parapelvic cyst measuring 2.4 cm. There is no mass lesion. BLADDER: Unremarkable. GASTROINTESTINAL TRACT: There is acute uncomplicated diverticulitis of the proximal sigmoid colon just distal to the junction with the descending colon, (best seen series 7, image 47; series 3, image 57). There is moderate sigmoid and descending colonic diverticulosis. No rectal abnormality. Normal appendix visualized. The small bowel is normal in caliber and course. The stomach is decompressed. The duodenal sweep appears normal. ABDOMINAL WALL: There is a tiny fat-containing left inguinal hernia. LYMPH NODES: No abnormal lymphadenopathy present. VASCULAR: Moderate calcific atheromatous changes of the aorta and iliac arteries. There is no aneurysm. PELVIC VISCERA: Mild prostate enlargement, measuring diameter of 4.9 cm. OSSEOUS STRUCTURES: No suspicious lytic or blastic bone lesions. Mild degenerative changes throughout the spine and bilateral hip joints. There are healed left rib fractures noted.. CT/CT abdomen pelvis w IV con IMPRESSION: 1. Acute uncomplicated diverticulitis of the proximal sigmoid colon just distal to the junction with the descending colon. 2. Moderate diverticulosis of the descending and sigmoid colon. 3. Additional ancillary findings as discussed in the body of the report. Electronically signed by: Julio Wheeler MD 01/04/2025 03:41 PM EDT RP
[2025-01-04 13:45] VITALS: BP 109/57; PULSE 86; RESP 16; TEMP 36.6; O2SAT 94; BMI 27.3
--- NOTE | 2025-01-04 13:52 | ED_ITS ---
HPI - General Adult General Chief complaint: Abdominal Pain Stated complaint: Low L Side Abd Pain Time Seen by Provider: 01/04/25 14:06 History of Present Illness ED Provider: Rashaun MARAVILLA narrative: The patient is a 69-year-old male who presents with 3 days of left-sided abdominal pain. He says the pain is similar to pains he has had in the past. And was told that it might be diverticulitis. According to old records in the hospital he had a CT of the abdomen and pelvis in March of 2023 that showed a questionable finding of possible early subtle diverticulitis. The patient estimates he has had about 4 episodes of pain like this in the past. Sometimes he simply takes dicyclomine for the pain. On this occasion the dicyclomine has not been helping. He does not think he has had a fever. He has had nausea but no vomiting. No diarrhea. No urinary difficulty. Related Data Home Medications ?Medication ?Instructions ?Recorded ?Confirmed dicyclomine 10 mg capsule mg PO 11/22/24 polyethylene glycol 3350 17 g PO BID 11/22/24 gram/dose oral powder (Gavilax) Previous Rx's ?Medication ?Instructions ?Recorded Ventolin HFA 90 mcg/actuation 2 puff inhalation Q6H MS N 08/30/23 aerosol inhaler (albuterol sulfate) shortness of breat h or wheezing 30 days #8 grams sertraline 50 mg tablet 50 mg PO DAILY 90 days #90 t abs 08/30/23 atorvastatin 80 mg tablet 80 mg PO BEDTIME 90 days #90 tabs 01/30/24 Breo Ellipta 100 mcg-25 mcg/dose 1 inh inhalation TARAN Y #60 ea 11/01/24 powder for inhalation (fluticasone furoate-vilanterol) Shower Chair #1 ea 11/14/24 blood sugar diagnostic (FreeStyle #50 ea 11/14/24 Lite Strips) blood-glucose meter (FreeStyle #1 ea 11/14/24 Lite Meter kit) lancets 28 gauge (FreeStyle #100 ea 11/14/24 Lancets) empagliflozin 25 mg tablet 25 mg PO DAILY 90 days #90 tabs 12/28/24 (Jardiance) acetaminophen 500 mg capsule 1,000 mg (2 x 500 mg) PO Q8H PRN 07/11/25 fever or pain #14 caps amoxicillin 875 mg-potassium 1 tab PO BID #16 tabs 05/21 clavulanate 125 mg tablet ibuprofen 400 mg tablet 400 mg PO Q6H PRN pain #14 t abs 01/04/25 morphine 15 mg immediate release 15 mg PO Q6H PRN pain #10 tabs 01/04/25 tablet ondansetron 4 mg disintegrating 4 mg PO Q6H PRN nausea and 01/04/25 tablet vomiting #10 tabs Allergies Allergy/AdvReac Type Severity Reaction Status Date / Time No Known Allergies (No Known Allergy Verified 01/04/25 13:46 Allergies*) Review of Systems 2 Review of Systems: Yes all other systems are reviewed and are negative [facility] Past Medical History Medical History Moderate persistent asthma ARELIS (generalized anxiety disorder) Knee pain Mild persistent asthma, uncomplicated Mild recurrent major depression Hearing loss Physical exam Obese Pure hypercholesterolemia Insomnia Surgical History H/O colonoscopy History of knee replacement procedure of right knee History of knee replacement procedure of left knee Family History Family History Father Pancreatic cancer Mother Chronic mental illness Diabetes Hypertension Stroke Sister Cancer Family/Other Chronic mental illness Social History Social History Household Members: Children Housing: [facility] Are you a primary intensive care specialist to a significant other at home: No Do you presently have visiting nurse or other home services: No Alcohol intake: former Patient Tobacco Use Status: Current everyday Tobacco user Tobacco use type: Cigarette Cigarette Packs Per Day: 1 Cigarettes Per Day: 20 Smoked in Last 30 Days: No e-Cigarette/Vaping Use: Never Used Second Hand Smoke Exposure: No Use of substances other than those prescribed or required for medical reasons: No Advance Directives: No Advance Directives Information Provided: Yes Do you have a plan to hurt others: No Plan service: No Current occupational status: disabled Cognitive needs: No Hearing needs: No Vision needs: Yes Physical Exam ED Vital Signs: Vital Signs - 24 hr 01/04/25 13:45 01/04/25 16:00 Temperature 97.8 F 98.1 F Pulse Rate 86 74 Respiratory Rate 16 18 Blood Pressure 109/57 L 107/51 L Pulse Oximetry 94 95 Oxygen Delivery Method Room Air Room Air BMI result Body Mass Index 27.3 Const Other: The patient is awake, alert, pleasant, cooperative. He looks mildly uncomfortable. He does not look in significant discomfort or acutely toxic in any way. Orientation/consciousness: patient oriented x3 HENMT Other: The face is symmetrical. ?Mucous membranes moist. Eyes Other: Pupils are round equal, conjunctivae are clear, extraocular movements intact Neck Neck: Yes normal visual inspection and Yes full ROM Resp Effort & Inspection: normal respiratory effort Auscultation: clear to auscultation bilaterally Cardio Rate: regular rate Rhythm: regular rhythm Heart sounds: S1 normal heart sound present and S2 normal heart sound present GI Other: The patient has some left lower quadrant tenderness. No rebound or guarding General: Yes no CVA tenderness Back/Spine/Pelvis Back: no CVA tenderness Skin Other: The skin is dry and unremarkable General skin exam: no rashes or lesions noted Neuro General: patient oriented x3, tone normal, moves all extremities, no focal motor deficits and CN's II-XI intact bilaterally Extrem Other: There is no calf swelling or tenderness. No asymmetry. No peripheral edema. Course Course Course Narrative: RME, this is a rapid medical exam performed by Nolberto Pierce please refer to primary provider for complete H&P- 69 year old male presents for evaluation of lower abdominal pain and difficulty urinating. Symptoms have been presents for a few months, but worsened 3 days ago. No fevers or chills. Plan for labs and a UA Medications Administered Discontinued Medications Generic Name Dose Route Start Last Admin Trade Name Norma PRN Reason Stop Dose Admin Amoxicillin/Clavulanate Potassium 875 mg 01/04/25 16:29 01/04/25 16:35 Amoxicillin/Potassium Clav 875 Mg Tablet PO 01/04/25 16:30 875 mg ONCE ONE Administration Sodium Chloride 1,000 mls @ 999 mls/hr 01/04/25 14:30 01/04/25 15:24 Ns IV 01/04/25 15:30 999 mls/hr .Q1H1M CINDY Administration Iohexol 100 ml 01/04/25 15:11 01/04/25 15:11 Iohexol 350 Mg/Ml 100 Ml Infus..Btl IV 01/04/25 15:12 85 ml ONCE ONE Administration Ketorolac Tromethamine 10 mg 01/04/25 14:22 01/04/25 15:24 Ketorolac Tromethamine 15 Mg/Ml Vial IVPUSH 01/04/25 14:23 10 mg ONCE ONE Administration Ondansetron HCl 4 mg 01/04/25 14:22 01/04/25 15:24 Ondansetron Hcl 4 Mg/2 Ml Vial IVPUSH 01/04/25 14:23 4 mg ONCE ONE Administration Medical Decision Making Medical Decision Making [facility] Narrative: The patient is a 69-year-old male who presents with left lower quadrant abdominal pain. He has had diverticulitis in the past and he says this feels somewhat similar. A review of his old chart shows that he last had a CT of his abdomen and pelvis 2 years ago. This showed a question of mild diverticulitis. This was a very ambiguous finding however. [place] [address]. He seems to have a tendency to run mildly elevated white counts based on a review of his old records. He has some left lower quadrant abdominal tenderness that is potentially consistent with diverticulitis. My suspicion for a more dangerous process would be low based on his clinical presentation. An alternative diagnosis could be a kidney stone although he does not really have CVA percussion tenderness. A CT scan with IV contrast of his abdomen was done. This shows acute uncomplicated sigmoid diverticulitis. The patient was treated with IV fluids. He was also given IV ketorolac and ondansetron for his symptoms of nausea and pain. He seemed to feel somewhat better. He looks clinically well. I suspect he is appropriate for outpatient management. He will be started on oral Augmentin. Prescriptions will also be sent for PRN acetaminophen, ibuprofen, and morphine tablets as needed for pain. Additionally ondansetron as needed for nausea. Return if worse. Lab Data 01/04/25 14:04 01/04/25 14:04 Labs: Lab Results 01/04/25 Range/Units 14:04 WBC 15.3 H (4.8-10.8) X10*3/uL RBC 4.40 L (4.60-5.80) X10*6/uL Hgb 13.2 L (14.0-18.0) g/dl Hct 38.9 L (42.0-52.0) % MCV 88.4 (80.0-98.0) fL MCH 30.0 (27.0-33.0) pg MCHC 33.9 (31.0-36.0) g/dl RDW 13.2 (11.0-16.0) % Plt Count 227 (160-400) X10*3/uL MPV 8.7 L (9.4-12.4) fL Immature Gran % (Auto) 0.4 (0.0-0.4) % Neut % (Auto) 63.6 (45-73) % Lymph % (Auto) 24.0 (20-40) % [place] % (Auto) 9.8 (2-11) % Eos % (Auto) 1.7 (0-4) % Baso % (Auto) 0.5 (0-2) % Lymph # (Auto) 3.7 (1.2-4.9) X10*3/uL [place] # (Auto) 1.5 H (0.1-1.2) X10*3/uL Eos # (Auto) 0.3 (0.0-0.4) X10*3/uL Baso # (Auto) 0.1 (0.0-0.2) X10*3/uL Abs Immat Gran (auto) 0.06 H (0.00-0.03) X10*3/uL Absolute Neuts (auto) 9.8 H (2.0-8.3) x10*3/uL Absolute Nucleated RBC 0.000 (0.0-0.012) X10*3/uL Nucleated RBC % (auto) 0.0 (0.0-0.2) /100WBC Sodium 139 (135-145) mmol/L Potassium 4.3 (3.3-5.1) mmol/L Chloride 104 (96-108) mmol/L Carbon Dioxide 27 (22-29) mmol/L Anion Gap 12 (12-20) BUN 11 (9-16) mg/dL Creatinine 0.82 (0.5-1.4) mg/dL Estim Creat Clear Calc 85.0 Estimated GFR > 60 Random Glucose 96 (60-115) mg/dL Calcium 9.1 (8.4-10.2) mg/dL Total Bilirubin 0.9 (0.0-1.0) mg/dL AST 22 (5-37) U/L ALT 18 (0-40) U/L Alkaline Phosphatase 99 (39-117) U/L Total Protein 7.2 (6.5-8.0) g/dL Albumin 4.4 (3.5-5.0) g/dL Lipase 11 (8-78) U/L Discharge Plan Discharge Clinical Impression: Sigmoid diverticulitis Patient Disposition: Home, Self-Care Additional Instructions: The CAT scan shows that you have a condition known as diverticulitis. This is an infection of the wall of the colon. You has been started on the antibiotic amoxicillin/clavulanate. Please take this medication 2 times a day. You received your 1st dose here in the emergency room. Take your next dose in approximately 12 hours in the morning. You has been sent prescriptions for acetaminophen and ibuprofen which you may use as needed for pain. Additionally there is a prescription for morphine tablets which you may use if necessary as well. However morphine is a strong medication and try to use this as little as possible. There is also a prescription for ondansetron which you may use as needed for nausea. Please plan on following up with your regular doctor in 1-2 weeks. Call the office on Tuesday morning for an appointment. Return to the emergency room if significantly worse. Prescriptions: New ibuprofen 400 mg tablet 400 mg PO Q6H PRN (Reason: pain) Qty: 14 0RF morphine 15 mg tablet 15 mg PO Q6H PRN (Reason: pain) Qty: 10 0RF Rx Instructions: Partial Fill upon patient request. ondansetron 4 mg tablet,disintegrating 4 mg PO Q6H PRN (Reason: nausea and vomiting) Qty: 10 0RF acetaminophen 500 mg capsule 1,000 mg PO Q8H PRN (Reason: fever or pain) Qty: 14 0RF amoxicillin-pot clavulanate 875-125 mg tablet 1 tab PO BID Qty: 16 0RF No Action fluticasone furoate-vilanterol [Breo Ellipta] 100-25 mcg/dose blister with device 1 inh inhalation DAILY Qty: 60 3RF Jardiance 25 mg tablet 25 mg PO DAILY 90 Days Qty: 90 1RF atorvastatin 80 mg tablet 80 mg PO BEDTIME 90 Days Qty: 90 1RF sertraline 50 mg tablet 50 mg PO DAILY 90 Days Qty: 90 1RF albuterol sulfate [Ventolin HFA] 90 mcg/actuation HFA aerosol inhaler 2 puff inhalation Q6H PRN (Reason: shortness of breath or wheezing) 30 Days Qty: 8 2RF (DME) FreeStyle Lite Strips Strip See Rx Instructions .Route Qty: 50 6RF Rx Instructions: Use 1 test strip once a day (DME) blood-glucose meter [FreeStyle Lite Meter] Kit See Rx Instructions .Route Qty: 1 0RF Rx Instructions: As directed (DME) lancets [FreeStyle Lancets] 28 gauge misc See Rx Instructions .Route Qty: 100 3RF Rx Instructions: Use 1 lancet once a day (DME) Shower Chair Misc See Rx Instructions .Route Qty: 1 0RF Rx Instructions: As directed aspirin 325 mg tablet 325 mg PO ONCE Qty: 1 0RF dicyclomine 10 mg capsule PO polyethylene glycol 3350 [Gavilax] 17 gram/dose powder PO BID Referrals: Yulia Centeno MD [Primary Care Provider, Internal Medicine] Print Language: Kittitian
[2025-01-04 14:07] LABS: MANUAL DIFF FLAG NO
[2025-01-04 14:10] LABS: Hematocrit 38.9 % (42.0-52.0); Hemoglobin 13.2 g/dl (14.0-18.0); Imm Gran Abs Auto 0.06 X10*3/uL (0.00-0.03); Imm Gran Pct Auto 0.4 % (0.0-0.4); Lymphocytes Absolute Auto 3.7 X10*3/uL (1.2-4.9); Mean Corpuscular HGB Conc 33.9 g/dl (31.0-36.0); Mean Corpuscular Hemoglobin 30.0 pg (27.0-33.0); Mean Corpuscular Volume 88.4 fL (80.0-98.0); NRBC Abs Auto 0.000 X10*3/uL (0.0-0.012); NRBC Pct Auto 0.0 /100WBC (0.0-0.2); Platelet Count 227 X10*3/uL (160-400); Red Blood Count 4.40 X10*6/uL (4.60-5.80); White Blood Count 15.3 X10*3/uL (4.8-10.8)
--- OUTSIDE RECORDS SUMMARY | 2025-01-04 14:10 | XMS_ITS | Clinical Summary ---
Author Organization [facility] Address [address] [place] [address] Phone Care Team Providers Care Sonographer Name Role Phone Yulia Montoya MD Primary Care Provider [phone] Encounters Date Type Department Care Team Description 10/13/2024 7:19 AM EDT - 10/13/2024 11:59 PM EDT Hospital Encounter [facility] CT Scan [address] [place] [address] Encounter for screening for malignant neoplasm of respiratory organs; Nicotine dependence, cigarettes, uncomplicated Discharge Disposition: Home or Self Care from Last 3 Months Medical History Medical [...] 2023-2 5 season) 2024 Influenza Vaccine (#1) 2025 DTaP,Tdap,and Td Vaccines (2 - Td or Tdap) 04/27/2026 04/27/2016 Pneumococcal Vaccine: 50+ Years Completed HIB Vaccines Aged Out No longer eligi [...] EDT No new or suspicious pulmonary nodules. Lung RADS 1-negative. Recommend continued screening low-dose chest CT in 12 months. -------- FINAL REPORT -------- Dictated By: ADONIS ALBERT Dictated Date: 10/15/2024 09:56 ET Assigned Physician: ADONIS ALBERT Reviewed and Electronically Signed By: ADONIS ALBERT Signed Date: 10/15/2024 10:06 ET Workstation ID: [id number] Transcribed By: Self Edit Transcribed Date: 10/15/2024 09:56 ET Narrative 10/15/2024 10:06 AM EDT PROCEDURE: Chest CT INDICATION: Lung cancer screening, current smoker, 52 pack year smoking history TECHNIQUE: Chest CT without contrast. Multi planar reformats were created and interpreted. The examination was performed utilizing dose reduction techniques. Total DLP 178 COMPARISON: 10/12/2023 FINDINGS: LUNGS/PLEURA: Stable calcified left upper lobe granuloma. No new or suspicious pulmonary nodules. Central airways are patent. Mild emphysema and chronic bronchitis. No pleural effusion or pneumothorax. MEDIASTINUM: Thyroid gland is unremarkable. No mediastinal or hilar lymphadenopathy. Cardiac chambers are normal in size. No pericardial effusion. Esophagus is normal. Mild coronary artery calcifications. CHEST WALL: No axillary lymphadenopathy or superficial hematoma. Bilateral gynecomastia. UPPER ABDOMEN:The visualized portions of the [...] Signed Date: 10/15/2024 10:06 ET Workstation ID: [id number] Transcribed By: Self Edit Transcribed Date: 10/15/2024 09:56 ET us Nesha Kaur MD IMG CT PROCEDURES Final Result from Last 3 Months Insurance [facility] Member Subscriber Plan / Payer (Ef fective 2023-Present) Name:Owen Garg Relation to Subscriber:Self Name:Owen Garg Payer ID:[id number] Group ID:[id number] Type:Not on file Address: [place] [address] [address] [id number] Care Teams Sonographer Relationship Specialty Start Date End Date Yulia Montoya MD [address] [facility] , [address] [place] [address] Physician Associ D/B/A: [facility] ANA Lucero PCP - General Internal Medicine 07/14/21
--- OUTSIDE RECORDS SUMMARY | 2025-01-04 14:10 | XMS_ITS | Patient Health Record ---
Author Organization [facility] Address [address] [place] [address] Support Name Relationship Address Phone PATHAK, JARADHABELLE Emergency Contact [address] [place], [place] [phone] IVA HUNTER Guarantor Unknown [phone] Care Team Providers Care C Architect Name Role Phone Yulia Centeno Primary Care Provider Joaquin Howard [phone] Allergies No Known Allergies Reason For Referral [...] Problem Screening for malignant neoplasm of colon (906951170) Encounter for screening for malignant neoplasm of colon (Z12.11) Active confirmed Problem History of adenomatous polyp of colon (141947215) History of adenomatous polyp of colon (Z86.010) Active confirmed Problem Pre-procedure evaluation check (377989865) Encounter for other preprocedural examination (Z01.818) Active confirmed Problem 177144781 Fatty liver (K76.0) Active confirmed Problem 10900212 Constipation, unspecified constipation type (K59.00) Active confirmed Problem Diverticulosis of colon (566641414) Diverticulosis of colon (K57.30) Active confirmed Problem 421790231 Left lower quadrant abdominal pain (R10.32) Active confirmed Vital Signs Temperature 97.5 degrees Fahrenheit 11/02/2024 Blood pressure diastolic 01 mm Hg 11/02/2024 Height 67.5 in 11/02/2024 Blood pressure systolic 001 mm Hg 11/02/2024 Weight 213.2 lbs 11/02/2024 BMI 32.9 kg/m2 11/02/2024 Procedures Procedure Date Ordered Date Performed Result Body Sit e COLONOSCOPY 11/02/2024 N/A Encounters Encounter Location Date Provider Diagnosis [facility] [address] [place] [phone] 11/02/2024 Joaquin Day Constipation, unspecified constipation type K59.00 ; Left lower quadrant abdominal pain R10.32 ; Diverticulosis of colon K57.30 ; History of adenomatous polyp of colon Z86.010 ; Encounter for other preprocedural examination Z01.818 and Encounter for screening for malignant neoplasm of colon Z12.11 [facility] [address] [place] [phone] 11/02/2024 Joaquin Day Assessments Encounter Date Diagnosis [...] Provider Name:Joaquin Day , 01/28/2025 11:40:00 AM, [address] [place] [address] , [place], [place], [phone], Insurance Providers Payer Name Payer Address Payer Phone Subscriber Number Group Number Insured Name Patient Relationship to Insured Coverage Start Date Coverage End Date [facility] [address] Attn Claims ANKUR Gómez [id number] IVA HUNTER Self - patient is the insured Medical (General) History Medical History History ICD Code Denies PR,CVA,renal disease Asthma/COPD Colonoscopy 12/2014 with small tubular [...]
[2025-01-04 14:25] LABS: Alanine Aminotransferase 18 U/L (0-40); Albumin Level 4.4 g/dL (3.5-5.0); Alkaline Phosphatase 99 U/L (39-117); Anion Gap 12 (12-20); Aspartate Amino Transferase 22 U/L (5-37); Blood Urea Nitrogen 11 mg/dL (9-16); Calcium 9.1 mg/dL (8.4-10.2); Carbon Dioxide 27 mmol/L (22-29); Chloride 104 mmol/L (96-108); Creatinine Clr Calc Pharmacy 85.0; Estimated Glomerular Filt Rate > 60; Lipase 11 U/L (8-78); Potassium 4.3 mmol/L (3.3-5.1); Sodium 139 mmol/L (135-145); Total Protein 7.2 g/dL (6.5-8.0)
[2025-01-04] MEDS: iohexoL 350 MG/ML 100 ML INFUS..BTL IV (15:11)
[2025-01-04 16:00] VITALS: BP 107/51; PULSE 74; RESP 18; TEMP 36.7; O2SAT 95
[2025-01-04 16:51] LABS: Appearance Urine Clear; Glucose Urine UA Negative (Negative); PH 5.5 (5.0-9.0); Specific Gravity - Urine >= 1.030 (1.005-1.025)
[2025-01-04 17:02] VITALS: BP 107/51; PULSE 74; RESP 18; TEMP 36.7; O2SAT 95
== END 2025-01-04 17:03 | disposition home or self-care (01) ==
PROVIDERS: Physician Assistant; Emergency Provider Emergency Medicine; PCP Internal Medicine
DX: K57.32 Diverticulitis of large intestine without perforation or abscess without bleeding (principal); R10.32 Left lower quadrant pain; E11.9 Type 2 diabetes mellitus without complications; E78.2 Mixed hyperlipidemia; F17.210 Nicotine dependence, cigarettes, uncomplicated; Z79.02 Long term (current) use of antithrombotics/antiplatelets; Z79.899 Other long term (current) drug therapy
CPT/HCPCS: 36415; 74177; 80053; 81001; 83690; 85025; 96361; 96374; 96375; 99284; 99285; J1885; J2405; Q9967

== ENCOUNTER → 2025-01-04 14:22 | Outpatient (BNV) | payer OTHER, SELFPAY | PROVIDERS: Emergency Provider Emergency Medicine; PCP Internal Medicine; Visit Provider Radiology Diagnostic Radiology | DX: R10.32 Left lower quadrant pain (principal) | CPT/HCPCS: 74177 ==

== ENCOUNTER 2025-01-28 10:02 | Day surgery (SDC) | payer OTHER, SELFPAY ==
--- OUTSIDE RECORDS SUMMARY | 2024-12-20 07:37 | XMS_ITS | Patient Health Record ---
Author Organization [facility] Address [address] [place] [address] Support Name Relationship Address Phone PATHAK, JARADHABELLE Emergency Contact [address] [place], [place] [id number] IVA HUNTER Guarantor Unknown Care Team Providers Care Crown Blocker Name Role Phone Yulia Centeno Primary Care Provider Joaquin Howard [phone] Allergies No Known Allergies Reason For Referral [...] Problem Screening for malignant neoplasm of colon (778076882) Encounter for screening for malignant neoplasm of colon (Z12.11) Active confirmed Problem History of adenomatous polyp of colon (650982268) History of adenomatous polyp of colon (Z86.010) Active confirmed Problem Pre-procedure evaluation check (151242283) Encounter for other preprocedural examination (Z01.818) Active confirmed Problem 123721751 Fatty liver (K76.0) Active confirmed Problem 01051067 Constipation, unspecified constipation type (K59.00) Active confirmed Problem Diverticulosis of colon (625539051) Diverticulosis of colon (K57.30) Active confirmed Problem 123102347 Left lower quadrant abdominal pain (R10.32) Active confirmed Vital Signs Temperature 97.5 degrees Fahrenheit 11/02/2024 Blood pressure diastolic 01 mm Hg 11/02/2024 Height 67.5 in 11/02/2024 Blood pressure systolic 001 mm Hg 11/02/2024 Weight 213.2 lbs 11/02/2024 BMI 32.9 kg/m2 11/02/2024 Procedures Procedure Date Ordered Date Performed Result Body Sit e COLONOSCOPY 11/02/2024 N/A Encounters Encounter Location Date Provider Diagnosis [facility] [address] [place] [phone] 11/02/2024 Joaquin Day Constipation, unspecified constipation type K59.00 ; Left lower quadrant abdominal pain R10.32 ; Diverticulosis of colon K57.30 ; History of adenomatous polyp of colon Z86.010 ; Encounter for other preprocedural examination Z01.818 and Encounter for screening for malignant neoplasm of colon Z12.11 [facility] [address] [place] [phone] 11/02/2024 Joaquin Day Assessments Encounter Date Diagnosis [...] Of note, we shall have a medical logistics specialist present on the day of the procedure [...] Of note, we shall have a medical logistics specialist present on the day of the procedure [...] Of note, we shall have a medical logistics specialist present on the day of the procedure [...] Of note, we shall have a medical logistics specialist present on the day of the procedure [...] Of note, we shall have a medical logistics specialist present on the day of the procedure [...] Of note, we shall have a medical logistics specialist present on the day of the procedure [...] Provider Name:Joaquin Day , 01/28/2025 11:40:00 AM, [address] [place] [address] , [place], [place], [id number], Insurance Providers Payer Name Payer Address Payer Phone Subscriber Number Group Number Insured Name Patient Relationship to Insured Coverage Start Date Coverage End Date [facility] [address] Attn Claims [place] G[place]mez [id number] IVA HUNTER Self - patient is the insured Medical (General) History Medical History History ICD Code Denies GA,CVA,renal disease Asthma/COPD Colonoscopy 12/2014 with small tubular [...]
[2025-01-24 15:47] VITALS: BMI 32.9
--- NOTE | 2025-01-25 08:39 | P.CONAN_ITS ---
Documented by User: Mamie Tee NP 01/25/25 08:42 HPI - Anesthesia Eval Consult details Narrative: 69yo M for Colon[place] [facility] [place] with atypical CP - negative work up PMFSH Active Problems Active Problems: All Active Problems Chest pain (Acute) Knee osteoarthritis (Acute) Family history of cancer (Acute) Screen for colon cancer (Acute) Abdominal pain (Acute) Nicotine dependence, cigarettes, uncomplicated (Acute) Cerumen impaction (Acute) Hearing loss (Acute) Right knee pain (Acute) History of arthroplasty of right knee (Acute ~01/14/15) History of arthroplasty of left knee (Acute ~10/10/15) Abdominal pain (Acute ~11/22/24) PRESCOTT (nonalcoholic steatohepatitis) (Acute) COPD (chronic obstructive pulmonary disease) (Acute) Left knee pain (Acute) Kidney pain (Acute) Left flank pain (Acute) Left hand pain (Acute) Fracture of metacarpal shaft of left hand, closed (Acute) Diabetes mellitus (Acute) Mixed hyperlipidemia (Acute) Conjunctivitis (Acute) Anemia (Chronic) ARELIS (generalized anxiety disorder) (Acute) Knee pain (Acute) Mild recurrent major depression (Acute) Hearing loss (Acute) Physical exam (Acute) Obese (Acute) Insomnia (Acute) Past Medical History Medical History Diverticulitis (01/04/25) Diverticulosis IBS (irritable bowel syndrome) HLD (hyperlipidemia) Fatty liver Constipation Depression Anxiety COPD (chronic obstructive pulmonary disease) Asthma Moderate persistent asthma ARELIS (generalized anxiety disorder) Knee pain Mild persistent asthma, uncomplicated Mild recurrent major depression Hearing loss Physical exam Obese Pure hypercholesterolemia Insomnia Family History Family History Father Pancreatic cancer Mother Chronic mental illness Diabetes Hypertension Stroke Sister Cancer Family/Other Chronic mental illness Surgical History Surgical History H/O colonoscopy History of knee replacement procedure of right knee History of knee replacement procedure of left knee History of Problems with Anesthesia: No Social History Social History Household Members: Children Housing: Condominium Are you a primary care mgr to a significant other at home: No Do you presently have visiting nurse or other home services: No Alcohol intake: former Patient Tobacco Use Status: Current everyday Tobacco user Tobacco use type: Cigarette Cigarette Packs Per Day: 1 Cigarettes Per Day: 20.0 e-Cigarette/Vaping Use: Never Used Second Hand Smoke Exposure: No Use of substances other than those prescribed or required for medical reasons: No Are you DNR?: No Advance Directives: No Advance Directives Information Provided: Yes Poor oral hygiene: Yes service: No Current occupational status: disabled Cognitive needs: No Hearing needs: No Vision needs: Yes Meds Allergies Allergy/AdvReac Type Severity Reaction Status Date / Time No Known Allergies (No Known Allergy Verified 01/04/25 13:46 Allergies*) Home Medications ?Medication ?Instructions ?Recorded ?Confirmed ?Last Taken ?Type dicyclomine 10 mg capsule 10 - 20 mg PO Q6H PRN Abdomi nal 11/22/24 01/24/25 Unknown History Discomfort Exam Height,Weight and Vital Signs: Height 5 ft 7.5 in Weight 96.706 kg Pertinent Lab Results Pertinent Lab Results: Laboratory Tests 01/04/25 14:04 WBC 15.3 H Hgb 13.2 L Hct 38.9 L Plt Count 227 Sodium 139 Potassium 4.3 Chloride 104 Carbon Dioxide 27 BUN 11 Creatinine 0.82 Narrative Narrative: EKG 10/2024 NSR @ 66 Assessment and Plan Assessment Anesthesia Assessment: Chart Reviewed Final Anesthetic Review History of Problems with Anesthesia: No Documented by User: Rey Crane MD 01/28/25 12:12 [facility] Past Medical History Medical History Diverticulitis (01/04/25) Diverticulosis IBS (irritable bowel syndrome) HLD (hyperlipidemia) Fatty liver Constipation Depression Anxiety COPD (chronic obstructive pulmonary disease) Asthma Moderate persistent asthma ARELIS (generalized anxiety disorder) Knee pain Mild persistent asthma, uncomplicated Mild recurrent major depression Hearing loss Physical exam Obese Pure hypercholesterolemia Insomnia Cognitive capacity: normal Family History Family History Father Pancreatic cancer Mother Chronic mental illness Diabetes Hypertension Stroke Sister Cancer Family/Other Chronic mental illness Family history of problems with anesthesia: No Surgical History Surgical History H/O colonoscopy History of knee replacement procedure of right knee History of knee replacement procedure of left knee Social History Social History Household Members: Children Housing: [facility] Are you a primary care mgr to a significant other at home: No Do you presently have visiting nurse or other home services: No Alcohol intake: former Patient Tobacco Use Status: Current everyday Tobacco user Tobacco use type: Cigarette Cigarette Packs Per Day: 1 Cigarettes Per Day: 20.0 e-Cigarette/Vaping Use: Never Used Second Hand Smoke Exposure: No Use of substances other than those prescribed or required for medical reasons: No Are you DNR?: No Advance Directives: No Advance Directives Information Provided: Yes Poor oral hygiene: Yes service: No Current occupational status: disabled Cognitive needs: No Hearing needs: No Vision needs: Yes Meds Allergies Allergy/AdvReac Type Severity Reaction Status Date / Time No Known Allergies (No Known Allergy Verified 01/04/25 13:46 Allergies*) Home Medications ?Medication ?Instructions ?Recorded ?Confirmed ?Last Taken ?Type dicyclomine 10 mg capsule 10 - 20 mg PO Q6H PRN Abdomi nal 11/22/24 01/24/25 Unknown History Discomfort Exam Airway Mallampati Class: II TM Dist: >3cm Neck ROM: Full Denture: Upper Partial: Lower Loose/Missing/Broken Teeth: Yes Heart: rrr Lungs: cta Other: normal Assessment and Plan Final Anesthetic Review Family History of Problems with Anesthesia: No NPO: Yes ASA Class: II Final Preanesthetic Review: No Changes in Pt Med Stat, Meds/Allgs Chart Reviewed, Consent Obtained/Reviewed and Anes Risks/Benef Reviewed Patient Risk: Low Procedure Risk: Low Anesthetic Plan Anesthetic Plan: MAC:
[2025-01-28 10:26] VITALS: BP 119/72; PULSE 82; RESP 16; TEMP 36.2; O2SAT 99; BMI 31.3
[2025-01-28 10:53] VITALS: PULSE 79; RESP 13; O2SAT 99
[2025-01-28] MEDS: Albuterol Sulfate (0.083%) 2.5 MG/3 ML VIAL.NEB INHALE (10:53)
[2025-01-28 10:57] LABS: Glucose, Whole Blood 104 mg/dL (60-115)
[2025-01-28 13:06] VITALS: BP 110/75; PULSE 75; RESP 16; TEMP 36.2; O2SAT 99
--- NOTE | 2025-01-28 13:08 | PM.OP ---
Brief Operative Note Date of Service: 01/28/25 Pre-op diagnosis: Screening Post-op diagnosis: other (Polyps) Procedure: Colonoscopy to the cecum and TI with bx/removal of AC polyp, and cold snare polypectomies of a TC and Rectal polyp Surgeon: Joaquin Day MD Anesthesia: MAC Was an Outboard System Operator used for this Procedure?: No Estimated blood loss (mL): 2.0 Pathology: other (A. Transverse colon polyp B. Ascending colon polyp C. Rectal polyp) Condition: stable Disposition: PACU
[2025-01-28 13:19] VITALS: BP 115/66; PULSE 79; RESP 16; TEMP 36.4; O2SAT 98
--- NOTE | 2025-01-28 13:53 | OP_ITS ---
DATE OF SERVICE: 01/28/2025 SURGEON: Joaquin Day MD INDICATIONS: The patient presents for evaluation of personal history of tubular adenomas and need for colorectal cancer screening. Full consent has been obtained from him for this, including risks of bleeding and perforation. PREOPERATIVE DIAGNOSIS: POSTOPERATIVE DIAGNOSIS: PROCEDURE PERFORMED: Colonoscopy to the cecum and terminal ileum with biopsy and removal of polyp, and cold snare polypectomy x2. ESTIMATED BLOOD LOSS: COMPLICATIONS: ANESTHESIA: Medication used, monitored anesthesia care. ASSISTANTS: SPECIMENS: PREOPERATIVE DIAGNOSES: Colorectal cancer screening and personal history of tubular adenoma of the colon. POSTOPERATIVE DIAGNOSES: Colorectal cancer screening and personal history of tubular adenoma of the colon, colon polyps, diverticulosis, internal hemorrhoids. DESCRIPTION OF PROCEDURE: The patient was placed in left lateral decubitus position. The digital rectal exam revealed no abnormalities. The [employer] video pediatric colonoscope was entered into the rectum and advanced easily to the cecum. Once in the cecum, I did identify normal-appearing cecal pouch with appendiceal orifice and a normal-appearing ileocecal valve. The terminal ileum was cannulated and appeared normal. Scope was withdrawn back in the colon. The entire cecum and ileocecal valve appeared normal. The scope was slowly withdrawn assessing all mucosal surfaces carefully. Preparation was excellent after his 2 day prep. In the ascending colon was a flat, approximately 3 or 4 mm polyp, which was biopsied and completely removed with cold biopsy forceps. In the transverse colon was an approximately 6 to 8 mm grossly adenomatous polyp, which was removed by cold snare polypectomy and recovered by suction. The polypectomy site appeared clean, without any sign of residual polyp nor significant bleeding. In the proximal rectum was an approximately 6 to 8 mm polyp, which was removed by cold snare polypectomy, recovered by suction. The polypectomy site appeared clean, without any sign of residual polyp nor bleeding. I did not visualize any other polyps, colitis, nor angiodysplasia. There was a mild amount of sigmoid diverticulosis. In the rectum, scope was retroflexed visualizing internal hemorrhoids, but no other pathology. The rectal mucosa appeared normal. The scope was straightened and withdrawn from the patient. He tolerated the procedure well and was returned to recovery area in stable condition. IMPRESSION: 1. Diverticulosis. 2. Internal hemorrhoids. PLAN: The results of the Pathology will be checked. I would recommend a repeat colonoscopy in 5 years for further screening and surveillance. He was advised not to use any aspirin nor NSAIDs for 1 week. He was advised to use MiraLAX once or twice a day as needed for constipation. He was advised to continue dicyclomine for intermittent abdominal discomfort from his IBS, but if the pain is localized to the left lower quadrant and it becomes progressive and/or associated with anything such as fevers he should go to the ER for evaluation. He will otherwise see me as needed. MD RAÚL Castro/WHITNEY / [id number]
== END 2025-01-28 13:58 | disposition home or self-care (01) ==
PROVIDERS: PCP Internal Medicine; Visit Provider Internal Medicine
PROC: 0DJD8ZZ Inspection of Lower Intestinal Tract, Via Natural or Artificial Opening Endoscopic (ICD-10-PCS; CPT 45378; principal; 2025-01-28 11:40)
DX: Z12.11 Encounter for screening for malignant neoplasm of colon (principal); D12.3 Benign neoplasm of transverse colon; D12.2 Benign neoplasm of ascending colon; K62.1 Rectal polyp; K57.30 Diverticulosis of large intestine without perforation or abscess without bleeding; K64.8 Other hemorrhoids; Z86.0101 Personal history of adenomatous and serrated colon polyps; E11.9 Type 2 diabetes mellitus without complications; E78.5 Hyperlipidemia, unspecified; J44.9 Chronic obstructive pulmonary disease, unspecified; K75.81 Nonalcoholic steatohepatitis (NASH); Z79.899 Other long term (current) drug therapy
CPT/HCPCS: 45385; 45380; 82947; 88305; 94640; J1100; J2704; J3010

== ENCOUNTER 2025-03-19 08:02 | Outpatient (AMB) | payer OTHER, SELFPAY ==
--- NOTE | 2025-03-19 08:05 | MHC.PC.OV ---
Vital Signs 03/19/25 08:06 Height 5 ft 7.5 in Weight 207 lb BMI 31.9 BP 150/60 H Blood Pressure Location Lt brachial Position Sitting Pulse 82 Pulse Source Pulse Oximeter Temp 97.1 F Temp Source Temporal Artery Scan Pulse Oximetry (%) 98 Oxygen Delivery Method Room Air Intake Visit Reasons: dm Intake Note: Patient is here to follow up on DM. Manager Strategic Partnerships Required: Yes Manager Strategic Partnerships Language: Iranian Assistant Activities Director: Not Required per policy Accompanied by: Self / Same As Patient Allergies No Known Allergies (No Known Allergies*) Allergy (Verified 03/19/25 08:37) Medication List - Last Reconciled 03/19/25 by Yulia Montoya MD acetaminophen 1,000 mg (2 x 500 mg) PO Q8H PRN amoxicillin-pot clavulanate 875-125 mg 1 tab PO BID atorvastatin 80 mg PO BEDTIME 90 days blood sugar diagnostic (FreeStyle Lite Strips) Use 1 test strip once a day blood-glucose meter (FreeStyle Lite Meter kit) As directed Breo Ellipta 100-25 mcg/dose (fluticasone furoate-vilanterol) 1 inh inhalation DAILY NS dicyclomine 10 - 20 mg PO Q6H PRN empagliflozin (Jardiance) 25 mg PO DAILY 90 days ibuprofen 400 mg PO Q6H PRN lancets (FreeStyle Lancets) Use 1 lancet once a day morphine 15 mg PO Q6H PRN ondansetron 4 mg PO Q6H PRN sertraline 50 mg PO DAILY 90 days Shower Chair As directed Ventolin HFA 90 mcg/actuation (albuterol sulfate) 2 puffs inhalation Q6H PRN 30 days NS Tobacco use date assessed: 03/19/25 Fall risk assessment: No Falls in past year Last assessed Fall Risk: 03/19/25 Dental Screening Dental Screen Date: 07/03/24 HPI HPI Comments History of Present Illness Details The patient is a 69-year-old male presenting with hypertension management. His blood pressure was recorded at 150/60 mmHg during the visit. The patient also presents for diabetes mellitus management. His hemoglobin A1c has improved from 6.7% to 6.5%. The patient underwent a colonoscopy last month, which revealed a tubular adenoma. He has not been informed of the follow-up schedule for this finding. COPD stable and follows with pulmonology. He has diabetes mellitus type 2 with an A1c within goal. The patient has a history of hyperlipidemia and is currently on atorvastatin therapy. His last cholesterol check was in June, and a repeat test is planned. The patient has a history of depression with anxiety, for which he is taking sertraline. He has been experiencing these symptoms for several years. The patient was hospitalized on December 25 due to an elevated white blood cell count. His renal function was reported to be normal during this hospitalization. [facility] Medical History (Updated 03/19/25 @ 08:48 by Yulia Montoya MD) Diverticulitis (01/04/25) Diverticulosis IBS (irritable bowel syndrome) HLD (hyperlipidemia) Fatty liver Constipation Depression Anxiety COPD (chronic obstructive pulmonary disease) Asthma Moderate persistent asthma ARELIS (generalized anxiety disorder) Knee pain Mild persistent asthma, uncomplicated Mild recurrent major depression Hearing loss Physical exam Obese Pure hypercholesterolemia Insomnia Surgical History H/O colonoscopy History of knee replacement procedure of right knee History of knee replacement procedure of left knee Family History Father Pancreatic cancer Mother Chronic mental illness Diabetes Hypertension Stroke Sister Cancer Family/Other Chronic mental illness Social History Household Members: Children Housing: Condominium Are you a primary geriatric care manager to a significant other at home: No Do you presently have visiting nurse or other home services: No Alcohol intake: former Patient Tobacco Use Status: Current everyday Tobacco user Tobacco use type: Cigarette Cigarette Packs Per Day: 1 Cigarettes Per Day: 20.0 e-Cigarette/Vaping Use: Never Used Second Hand Smoke Exposure: Yes service: No Current occupational status: disabled Cognitive needs: No Hearing needs: No Vision needs: Yes Questionnaire Thrive Questionnaire Date Thrive assessed: 11/14/24 I am a: Patient What is your living situation today?: I have a steady place to live Within the past 12 months, did the food you bought not last and you didn't have the money to get more?: I choose not to answer this question Within the past 12 months, did you worry whether your food would run out before you got money to buy more?: I choose not to answer this question Do you have trouble paying for medicines?: No Do you have trouble getting transportation to medical appointments?: No Do you have trouble paying your heating and electricity bill?: No Do you have trouble taking care of your child, family member or friend?: No Do you have trouble with day-to-day activities such as bathing, preparing meals, shopping, managing finances, etc.?: Yes Are you currently unemployed and looking for a job?: No Are you interested in more education?: No Please select the resources that you would like help with: None Currently or been in a relationship where the following occur: I choose not to answer THRIVE Score: 0 ARELIS-7 AMB Questionnaire ARELIS-7 Date ARELIS - 7 assessed: 11/14/24 Source: Developed by Drs. Joaquin Tirado, Leona Craig, Rigo Parks and colleagues, with an educational rai from [employer]. Review of Systems Const All systems reviewed & are unremarkable except as noted in HPI and below Card Denies chest pain at rest, Denies chest pain with activity, Denies edema, Denies irregular heart rhythm, Denies claudication, Denies dyspnea, Denies dyspnea on exertion, Denies orthopnea, Denies paroxysmal nocturnal dyspnea and Denies slow heart rate Resp Denies cough, Denies dyspnea and Denies dyspnea on exertion Physical exam (Primary Care) Vital Signs: Last Vital Signs Temp 97.1 F 03/19/25 08:06 Pulse 82 03/19/25 08:06 BP 150/60 H 03/19/25 08:06 Pulse Ox 98 03/19/25 08:06 Oxygen Delivery Method Room Air 03/19/25 08:06 BMI result Body Mass Index 31.9 BMI Assessment/Plan discussion: High BMI High, discussed plan: lifestyle, weight reduction, dietary and physical activity Tobacco/Smoking Status: Tobacco use Status Tobacco use date assessed 03/19/25 03/19/25 08:14 Patient Tobacco Use Status Current everyday Tobacco 03/19/25 08:14 Tobacco use type Cigarette 03/19/25 08:14 e-Cigarette/Vaping Use Never Used 03/19/25 08:14 Are you ready to quit: No Tobacco cessation counseling provided: Yes Items discussed: Nicotine replacement and QuitWorks Relapse Prevention: discussed the importance of a supportive environment, discussed extending NRT, discussed negative mood or depression after quitting, weight gain after smoking is common and discussed dietary, exercise and/or lifestyle changes Number of minutes spent counselin CPT code: 04622 - 4-10 Minutes Thrive Assessment: Date of Thrive Assessment Date Thrive assessed 11/14/24 03/19/25 08:14 Currently or been in a relationship where the following occur: I choose not to answer Resp Effort & Inspection: normal respiratory effort Auscultation: clear to auscultation bilaterally Cardio Jugular venous distension: no JVD Rate: regular rate Rhythm: regular rhythm Heart sounds: S1 normal heart sound present and S2 normal heart sound present Extrem General: Yes full ROM Results AMB Hemoglobin A1c AMB Hemoglobin A1c 6.5 % Last Edit by LAM Thakkar on 03/19/25 08:20 Results Reviewed Results Reviewed: Laboratory Last Values Hgb A1c (Clinic) 6.5 % (4.0-6.0) H 03/19/25 08:04 Coding Level of Care Code Est Pt Level 4 (97573) Complex EM visit Add On G2211 Diagnoses Mild recurrent major depression F33.0 ARELIS (generalized anxiety disorder) F41.1 Mixed hyperlipidemia E78.2 Type 2 diabetes mellitus without complication, without long-term current use of insulin E11.9 Diabetes mellitus type: type 2 Diabetes mellitus half-way insulin use: without sales agent protective service use Diabetes mellitus complication status: without complication Bilateral hearing loss, unspecified hearing loss type H91.93 Hearing loss type: unspecified Laterality: bilateral COPD (chronic obstructive pulmonary disease) J44.9 Additional Codes Vital Signs *Quality* - CPT code: 13609 - 4-10 Minutes ([id number]) Time Spent (min) 24 Assessment & Plan Assessment & Plan (1) Mild recurrent major depression: Code(s): F33.0 - Major depressive disorder, recurrent, mild Category: Medical (2) ARELIS (generalized anxiety disorder): Code(s): F41.1 - Generalized anxiety disorder Category: Medical (3) Mixed hyperlipidemia: Code(s): E78.2 - Mixed hyperlipidemia Category: Medical (4) Diabetes mellitus: Code(s): E11.9 - Type 2 diabetes mellitus without complications Category: Medical Qualifiers: Diabetes mellitus type: type 2 Diabetes mellitus sales agent protective service insulin use: without half-way use Diabetes mellitus complication status: without complication Qualified Code(s): E11.9 - Type 2 diabetes mellitus without complications (5) Hearing loss: Code(s): H91.90 - Unspecified hearing loss, unspecified ear Category: Medical Qualifiers: Hearing loss type: unspecified Laterality: bilateral Qualified Code(s): H91.93 - Unspecified hearing loss, bilateral (6) COPD (chronic obstructive pulmonary disease): Code(s): J44.9 - Chronic obstructive pulmonary disease, unspecified Category: Medical Plan Plan Patient was informed and verbally consented to the use of an ambient scribe for clinic note documentation during this visit. 1. Essential Hypertension The patient's blood pressure was recorded at 150/60 mmHg, indicating the need for continued monitoring and management. A follow-up blood pressure check is scheduled in three weeks with the nurse navigator. 2. Diabetes Mellitus The patient's hemoglobin A1c has improved to 6.5%, indicating better glycemic control. The patient is advised to continue current diabetes management and medication adherence. 3. Tubular Adenoma The patient underwent a colonoscopy last month, which revealed a tubular adenoma. A follow-up schedule for this finding has not been established, and further consultation is needed. 4. Hyperlipidemia The patient is on atorvastatin therapy for hyperlipidemia. A repeat cholesterol test is planned to assess current lipid levels. 5. Depression With Anxiety The patient is currently taking sertraline for depression with anxiety. The patient has been experiencing these symptoms for several years, and ongoing management is required. Orders: Orders Complete Blood Count Auto Diff Today D64.9 - Anemia, unspecified Lipid Panel Today E78.5 - Hyperlipidemia, unspecified Vitamin D 25-OH Total Today E55.9 - Vitamin D deficiency, unspecified Vitamin B12 and Folate Today E53.8 - Deficiency of other specified B group vitamins AMB Hemoglobin A1c Today E11.9 - Type 2 diabetes mellitus without complications Microalbumin, Random (w Creat) Today R80.9 - Proteinuria, unspecified IRON PROFILE Today D64.9 - Anemia, unspecified Comprehensive [place]. Panel Fast Today E78.2 - Mixed hyperlipidemia Referrals Speech and Hearing Referral H91.90 - Unspecified hearing loss, unspecified ear
[2025-03-19 08:06] VITALS: BP 150/60; PULSE 82; TEMP 36.2; O2SAT 98; BMI 31.9
== END 2025-03-19 08:50 | disposition home or self-care (01) ==
LOC: HO.HMCH 08:03
PROVIDERS: PCP Internal Medicine; Visit Provider Internal Medicine
DX: F33.0 Major depressive disorder, recurrent, mild (principal); F41.1 Generalized anxiety disorder; E78.2 Mixed hyperlipidemia; E11.9 Type 2 diabetes mellitus without complications; H91.93 Unspecified hearing loss, bilateral; J44.9 Chronic obstructive pulmonary disease, unspecified

== ENCOUNTER → 2025-03-19 08:02 | Outpatient (BNVA) | payer OTHER, SELFPAY | PROVIDERS: PCP Internal Medicine; Visit Provider Internal Medicine | DX: E11.9 Type 2 diabetes mellitus without complications (principal); I10 Essential (primary) hypertension; F33.0 Major depressive disorder, recurrent, mild; F41.1 Generalized anxiety disorder; E78.2 Mixed hyperlipidemia; H91.93 Unspecified hearing loss, bilateral; F44.9 Dissociative and conversion disorder, unspecified; D64.9 Anemia, unspecified; E55.9 Vitamin D deficiency, unspecified; E53.8 Deficiency of other specified B group vitamins; R80.9 Proteinuria, unspecified | CPT/HCPCS: 83036; 99212 ==

== ENCOUNTER 2025-03-25 08:48 | Outpatient (AMB) | payer OTHER, SELFPAY ==
--- OUTSIDE RECORDS SUMMARY | 2025-01-28 07:40 | XMS_ITS ---
Author Organization [facility] Address [address] [place] [address] Support Name Relationship Address Phone BOOKER PATHAK Emergency Contact 06/[address] [place], [place] [phone] LAWSON ARMSTRONGKRISTINIVA Guarantor Unknown Care Team Providers Care Oven Stripper Name Role Phone Yulia Centeno Primary Care Provider UnavailJoaquin Lai [phone] REASON FOR VISIT constipation,LLQ pain Encounters Encounter Location Date Provider Diagnosis [facility] [place] [address] [place] [phone] 01/28/2025 Joaquin Day Plan Of Treatment No Information Progress Notes * PATHAK ALBERTO GARCIAIMEDOB: (69 yo M)Acc No.[id number]:01/28/2025 COLON WITH MAC Patient: Parker ARMSTRONGKRISTIN IVA Provider: Monserrat Day MD :1955 A ge:69 Y S ex:Male Date:01/28/2025 Address:[address] [place], [place] [phone] Pcp:Yulia Montoya Subjective: * Chief Complaints: * 1 . constipation,LLQ pain. * Medical History: Objective: * Vitals: Assessment: Plan: * Treatment: * * The named appointment provid er may or may not be the originator of this progress note, and it is not deemed complete until electronically signed by the appointment provider. Sign off status: Pending * Provider: Monserrat Day MD Date: 0 01/28/2025 Generated for Harii ng/Faxing/eTransmitting on: 0 03/25/2025 09:15 AM EDT
[2025-03-25 08:55] VITALS: BP 138/62; PULSE 80; O2SAT 99; BMI 32.0
--- NOTE | 2025-03-25 08:55 | MHC.OFFVIS ---
Vital Signs 03/25/25 08:55 Height 5 ft 7.5 in Weight 207 lb 3.752 oz BMI 32.0 BP 138/62 Blood Pressure Location Rt brachial Position Sitting Pulse 80 Pulse Source Pulse Oximeter Pulse Oximetry (%) 99 Oxygen Delivery Method Room Air Intake Visit Reasons: COPD Welding Lead Burner Required: Yes Welding Lead Burner Language: Long Filler Cigar Roller Machine Services: Welding Lead Burner Present Welding Lead Burner Name: Darby Zavala LM Allergies No Known Allergies (No Known Allergies*) Allergy (Verified 03/25/25 08:59) HPI HPI COPD: Details: Owen is a pleasant 69 year old male, current 65 pack year smoker, with underlying moderate COPD, pulmonary nodules and DMII. Patient continues to report suboptimal control of respiratory symptoms however not consistently using Breo. He reports intermittent symptoms of chest tightness, dry cough and dyspnea. He uses albuterol MDI on a daily basis occasionally BID. He denies any visits to urgent care or hospitalizations related to respiratory distress since the last visit. [facility] Medical History Diverticulitis (01/04/25) Diverticulosis IBS (irritable bowel syndrome) HLD (hyperlipidemia) Fatty liver Constipation Depression Anxiety COPD (chronic obstructive pulmonary disease) Asthma Moderate persistent asthma ARELIS (generalized anxiety disorder) Knee pain Mild persistent asthma, uncomplicated Mild recurrent major depression Hearing loss Physical exam Obese Pure hypercholesterolemia Insomnia Surgical History H/O colonoscopy History of knee replacement procedure of right knee History of knee replacement procedure of left knee Family History Father Pancreatic cancer Mother Chronic mental illness Diabetes Hypertension Stroke Sister Cancer Family/Other Chronic mental illness Social History Household Members: Children Housing: Condominium Are you a primary healthcare social worker to a significant other at home: No Do you presently have visiting nurse or other home services: No Alcohol intake: former Patient Tobacco Use Status: Current everyday Tobacco user Tobacco use type: Cigarette Cigarette Packs Per Day: 1 Cigarettes Per Day: 20.0 e-Cigarette/Vaping Use: Never Used Second Hand Smoke Exposure: Yes service: No Current occupational status: disabled Cognitive needs: No Hearing needs: No Vision needs: Yes Review of Systems Const Denies chills, Denies excessive sweating, Denies fever(s), Denies headache(s) and Denies night sweats Eyes Denies dry eyes, Denies irritation and Denies itchy eyes ENT Reports Normal hearing present, Denies headache(s), Denies nasal congestion, Denies nasal discharge, Denies post nasal drip and Denies sore throat Card Denies chest pain, Denies chest pain at rest, Denies chest pain with activity, Denies claudication, Denies leg edema, Reports dyspnea on exertion, Denies orthopnea and Denies paroxysmal nocturnal dyspnea Resp Denies change in phlegm color, Denies chest congestion, Reports cough, Denies hemoptysis, Denies excessive phlegm production, Denies pain on inspiration, Denies pain with cough, Reports dyspnea on exertion, Denies stridor and Denies wheezing Musc Denies myalgias Neuro Reports Normal hearing present and Denies headache(s) Endo Denies excessive sweating Yoandy/Lymph Denies lymphadenopathy Aller/Immun Denies itchy eyes, Denies seasonal rhinorrhea and Denies wheezing Physical Exam Vital Signs: Last Vital Signs Pulse 80 03/25/25 08:55 BP 138/62 03/25/25 08:55 Pulse Ox 99 03/25/25 08:55 Oxygen Delivery Method Room Air 03/25/25 08:55 BMI result Body Mass Index 32.0 Const General: cooperative, healthy appearing, comfortable, no acute distress, well developed and alert Nutritional Appearance: obese Orientation/consciousness: patient oriented x3 Limitations: no limitations HEENT Head: Yes normal to inspection, Yes normocephalic and Yes atraumatic Ears: hearing grossly normal bilaterally and external ears normal Eyes General: appearance normal, both eyes and all related structures Eyelids: Yes eyelids normal Sclerae: sclerae normal EOM: EOMs intact bilaterally Neck Neck: Yes normal visual inspection and Yes no lymphadenopathy Lymphatic: no lymphadenopathy noted Chest Chest palpation & inspection: normal inspection of the chest Resp Effort & Inspection: normal respiratory effort, able to speak in complete sentences, no audible wheezes, no cough, no stridor, not tachypneic, no tripod positioning and no use of accessory muscles Auscultation: diminished lung sounds Cardio Jugular venous distension: no JVD Rate: regular rate Rhythm: regular rhythm Skin Other: warm, dry General skin exam: no rashes or lesions noted Neuro General: patient oriented x3 Cranial nerves: Yes Normal hearing present Cognition (Neuro): normal cognition Gait exam (Neuro): Normal gait present Extrem General: Yes normal to inspection, Yes capillary refill normal, Yes no clubbing, cyanosis or edema and Yes no pedal edema Psych Appearance: grossly normal and well kempt Speech and movement: Normal speech and movement present and Clear speech present Affect: normal affect Attitude: cooperative Thought process: Normal thought process present Thought content: Normal thought content present Insight: Good insight present (Psych) Judgement: Good judgement present (Psych) Assessment & Plan Assessment & Plan (1) COPD (chronic obstructive pulmonary disease): Code(s): J44.9 - Chronic obstructive pulmonary disease, unspecified Category: Medical (2) Nicotine dependence, cigarettes, uncomplicated: Code(s): F17.210 - Nicotine dependence, cigarettes, uncomplicated Category: Medical Plan Discussed importance of compliance with Breo to assess effectiveness and patient will work towards using on a daily basis in addition to albuterol MDI PRN. He is aware to call if symptoms persist despite consistent use. Smoking cessation discussed, patient using NRT intermittently and agreeable to trial consistently. LDCT 09/2024 performed through [facility], with plan to repeat imaging in one year. All questions were answered and patient is in agreement of plan. Will follow up in 3 months or sooner if needed. Medications: New nicotine (polacrilex) 2 mg buccal Q8H PRN 72 ea 0RF nicotine cravings nicotine apply 1-21 mg NICOTINE PATCH daily for 28 days; follow with 1-14 mg PATCH daily for 14 days, then 1-7mg PATCH daily for 14 days transdermal 56 patches 0RF Coding Level of Care Code Est Pt Level 4 (52579) Diagnoses COPD (chronic obstructive pulmonary disease) J44.9 Nicotine dependence, cigarettes, uncomplicated F17.210
--- OUTSIDE RECORDS SUMMARY | 2025-03-25 09:15 | XMS_ITS | Patient Health Record ---
Author Organization [facility] Address [address] [place] [address] Support Name Relationship Address Phone BOOKER PATHAK Emergency Contact [address] [place] [address] [id number] IVA HUNTER Guarantor Unknown Care Team Providers Care Film Replacement Orderer Name Role Phone Yulia Centeno Primary Care Provider Joaquin Howard [phone] Allergies No Known Allergies Results Component Value Reference Range Notes Glucose, Whole Blood Reviewed date:01/30/2025 12:40:31 AM Interpretation: Performing Lab:[facility], [address] [place] [id number] Notes/Report: Glucose, Whole Blood 104 60-115 mg/dL METER # : [id number] Pathology (Not yet reviewed by provider) Interpretation: Performing Lab:[facility], [address] [place] [id number] Notes/Report: Reason For Referral No Information Medications Medication [...] Dicyclomine HCl 10 MG 1 or 2 Orally Ever y 6 hours if needed for abdominal cramps/discomfort for 30 days Active Metamucil 0.36 GM 2 capsules with [...] Problem Screening for malignant neoplasm of colon (453257260) Encounter for screening for malignant neoplasm of colon (Z12.11) Active confirmed Problem History of adenomatous polyp of colon (670314248) History of adenomatous polyp of colon (Z86.010) Active confirmed Problem Pre-procedure evaluation check (887177923) Encounter for other preprocedural examination (Z01.818) Active confirmed Problem 756638695 Fatty liver (K76.0) Active confirmed Problem 99322131 Constipation, unspecified constipation type (K59.00) Active confirmed Problem Diverticulosis of colon (757546500) Diverticulosis of colon (K57.30) Active confirmed Problem 198503904 Left lower quadrant abdominal pain (R10.32) Active confirmed Vital Signs Temperature 97.5 degrees Fahrenheit 11/02/2024 Blood pressure diastolic 01 mm Hg 11/02/2024 Height 67.5 in 11/02/2024 Blood pressure systolic 001 mm Hg 11/02/2024 Weight 213.2 lbs 11/02/2024 BMI 32.9 kg/m2 11/02/2024 Procedures Procedure Date Ordered Date Performed Result Body Sit e COLONOSCOPY 11/02/2024 N/A Encounters Encounter Location Date Provider Diagnosis [facility] [address] [place], [place] [id number] 01/28/2025 Joaquin Day [facility] [address] [place] [address] 11/02/2024 Joaquin Day Constipation, unspecified constipation type K59.00 ; Left lower quadrant abdominal pain R10.32 ; Diverticulosis of colon K57.30 ; History of adenomatous polyp of colon Z86.010 ; Encounter for other preprocedural examination Z01.818 and Encounter for screening for malignant neoplasm of colon Z12.11 [facility] [address] [place] [address] 11/02/2024 Joaquin Day Assessments Encounter Date Diagnosis [...] colonoscopy. Of note, we shall have a ophthalmic medical assistant present on the day of [...] colonoscopy. Of note, we shall have a ophthalmic medical assistant present on the day of [...] colonoscopy. Of note, we shall have a ophthalmic medical assistant present on the day of [...] colonoscopy. Of note, we shall have a ophthalmic medical assistant present on the day of [...] colonoscopy. Of note, we shall have a ophthalmic medical assistant present on the day of [...] colonoscopy. Of note, we shall have a ophthalmic medical assistant present on the day of the procedure for further discussion with Iva as well. Iva and his family seemed comfortable with this plan. Thank you again for allowing me to participate in Iva's care. I shall continue to keep you advised of his progress. Plan Of Treatment Pending Test Test Name Order Date COLONOSCOPY 11/02/2024 Pathology 01/28/2025 Future Test Test Name Order Date COLONOSCOPY 12/19/2014 COLONOSCOPY 01/19/2022 Insurance Providers Payer Name Payer Address Payer Phone Subscriber Number Group Number Insured Name Patient Relationship to Insured Coverage Start Date Coverage End Date [facility] [address] Attn Claims [place] [id number] IVA HUNTER Self - patient is the insured Medical (General) History Medical History History ICD Code Denies [place],CVA,renal disease Asthma/COPD Colonoscopy 12/2014 with small tubular [...]
--- OUTSIDE RECORDS SUMMARY | 2025-03-25 09:15 | XMS_ITS | Clinical Summary ---
Author Organization [facility] [address] [facility] Address [address] [place] [address] Phone Care Team Providers Care Machine Operator General Name Role Phone Yulia Montoya MD Primary Care Provider [phone] Medical History Medical History Date Comments Arthritis [...] Health Maintenance Due Date Last Done Comments Colorectal Cancer Screening: Colonoscopy 1955 Hepatitis A Vaccines (1 of 2 - Risk 2-dose series) 08/25/1974 Zoster Vaccines (1 of 2) 08/25/2005 Hepatitis B Vaccines (1 of 3 - Risk 3-dose series) 2015 RSV Immunization Adult Patie nts (1 - Risk 60-74 years 1-dose series) 2015 Abdominal Aortic Aneurysm (A AA) Screen 05/25/2022 Cholesterol Screening (Lipid Panel) 05/25/2022 Falls Risk Assessment 05/25/2022 Hepatitis C Screening 05/25/2022 Social Influencers of Health Screening 05/25/2022 Depression Screening 06/27/2024 COVID-19 Vaccine (1 - 2023-2 5 season) 2025 Influenza Vaccine (#1) 2025 DTaP,Tdap,and Td Vaccines (2 - Td or Tdap) 04/27/2026 04/27/2016 Pneumococcal Vaccine: 50+ Years Completed 01/07/202 5 HIB Vaccines Aged Out No longer [...] patient's age to complete this topic Insurance [facility] Member Subscriber Plan / Payer (Ef fective 2023-Present) Name:Owen Garg Relation to Subscriber:Self Name:Owen Garg Payer ID:[id number] Group ID:[id number] Type:Not on file Address: [place] [address] [place] [id number] Care Teams Machine Operator General Relationship Specialty Start Date End Date Yulia Montoya MD [address] [facility] , [address] [facility] D/B/A: [facility] ANA Lucero PCP - General Internal Medicine 07/14/21
== END 2025-03-25 09:28 | disposition home or self-care (01) ==
LOC: HO.HPS 08:49
PROVIDERS: PCP Internal Medicine; Visit Provider Nurse Practitioner Family
DX: J44.9 Chronic obstructive pulmonary disease, unspecified (principal); F17.210 Nicotine dependence, cigarettes, uncomplicated
CPT/HCPCS: 99214

== ENCOUNTER → 2025-03-25 08:48 | Outpatient (BNVA) | payer OTHER, SELFPAY | PROVIDERS: PCP Internal Medicine; Visit Provider Nurse Practitioner Family | DX: J44.9 Chronic obstructive pulmonary disease, unspecified (principal); F17.210 Nicotine dependence, cigarettes, uncomplicated | CPT/HCPCS: 99212 ==

== ENCOUNTER 2025-04-05 09:00 | Outpatient (REF) | payer OTHER, SELFPAY ==
--- OUTSIDE RECORDS SUMMARY | 2025-01-28 07:40 | XMS_ITS ---
Author Organization [facility] Address [address] [place] [address] Support Name Relationship Address Phone BOOKER PATHAK Emergency Contact 29 [address] [place], [place] [phone] LAWSON ARMSTRONGKRISTINIVA Guarantor Unknown Care Team Providers Care Manager Shipping Name Role Phone Yulia Centeno Primary Care Provider UnavailJoaquin Lai [phone] REASON FOR VISIT constipation,LLQ pain Encounters Encounter Location Date Provider [place] [facility] [place] [address] [place] [phone] 01/28/2025 Joaquin Day Plan Of Treatment No Information Progress Notes * PATHAK ALBERTO GARCIAIMEDOB: (69 yo M)Acc No.[id number]:01/28/2025 COLON WITH MAC Patient: Parker ARMSTRONGKRISTIN IVA Provider: Monserrat Day MD :1955 A ge:69 Y S ex:Male Date:01/28/2025 Address:[address] [place], [place] [phone] Pcp:Yulia Montoya Subjective: * Chief Complaints: * [...] Day MD Date: 0 01/28/2025 Generated for Printi ng/Faxing/eTransmitting on: 09:23 AM EDT
[2025-04-05 09:24] LABS: MANUAL DIFF FLAG NO
--- OUTSIDE RECORDS SUMMARY | 2025-04-05 09:24 | XMS_ITS | Patient Health Record ---
Author Organization [facility] Address [address] [place] [address] Support Name Relationship Address Phone BOOKER PATHAK Emergency Contact [address] [place] [phone] IVA HUNTER Guarantor Unknown [phone] Care Team Providers Care Research And Development Director Name Role Phone Yulia Centeno Primary Care Provider Joaquin Howard [phone] Allergies No Known Allergies Results Component Value Reference Range Notes Glucose, Whole Blood Reviewed date:01/30/2025 12:40:31 AM Interpretation: Performing Lab:[facility], [address] [place] [phone] Notes/Report: Glucose, Whole Blood 104 60-115 mg/dL METER # : [id number] Pathology (Not yet reviewed by provider) Interpretation: Performing Lab:[facility], [address] [place] [phone] Notes/Report: Reason For Referral No Information Medications Medication SIG (Take, Route, Frequency, Duration) Notes Start Date End Date Status Ventolin HFA 108 (90 Base) MCG/ACT 1 puff as needed Inhalation every 4 hrs Active MiraLax (colon prep) 17 GM/SCOOP 1 238Gm bottle mixed with Gatorade or Crystal Light Orally begin at 5:00 p.m. the day before the procedure; Duration: 1 day 01/19/2022 Active Dulcolax (colon prep) 5 MG Take 2 tablet s 2 days before the colonoscopy, then take 2 tablets at 3:00 p.m and 7:00p.m. the day before the colonoscopy Orally 2 tablets 2 days before the colonoscopy, then two tablets twice a day for one day the day before the colonoscopy; Duration: 2 days 01/19/2022 Active MiraLax 17 GM/SCOOP 1 scoop mixed with 8 ounces of fluid Orally Twice a day to help with constipation; Duration: 30 days Active Dicyclomine HCl 10 MG 1 or 2 Orally Ever y 6 hours if needed for abdominal cramps/discomfort; Duration: 30 days Active Metamucil 0.36 GM 2 capsules with 8 ou nces of liquid Orally Once a day; Duration: 30 days 07/26/2023 Active Atorvastatin Calcium 20 MG Oral; Duration: 90 Active metFORMIN HCl 500 MG Oral; Duration: Active Dulera 100-5 MCG/ACT as directed Inhalation Active Jardiance 10 MG 1 tablet Orally Once a day Active Sertraline HCl 50 MG 1 tablet Orally Onc e a day Active Immunizations Vaccine Route Administration Date Status Comme nts Influenza Unknown 01/19/2022 Refused Influenza Unknown 11/02/2024 Refused Problems Problem Type SNOMED Code ICD Code Onset Dates Problem Status W/U Status Risk Notes Problem Screening for malignant neoplasm of colon (374981167) Encounter for screening for malignant neoplasm of colon (Z12.11) Active confirmed Problem History of adenomatous polyp of colon (874051033) History of adenomatous polyp of colon (Z86.010) Active confirmed Problem Pre-procedure evaluation check (032850644) Encounter for other preprocedural examination (Z01.818) Active confirmed Problem Fatty liver (759284740) Fatty liver (K76.0) Active confirmed Problem Constipation (07201615) Constipation, unspecified constipation type (K59.00) Active confirmed Problem Diverticulosis of colon (840014742) Diverticulosis of colon (K57.30) Active confirmed Problem Left lower quadrant pain (510988973) Left lower quadrant abdominal pain (R10.32) Active confirmed Vital Signs Temperature 97.5 degrees Fahrenheit 11/02/2024 Blood pressure diastolic 01 mm Hg 11/02/2024 Height 67.5 in 11/02/2024 Blood pressure systolic 001 mm Hg 11/02/2024 Weight 213.2 lbs 11/02/2024 BMI 32.9 kg/m2 11/02/2024 Procedures Procedure Date Ordered Date Performed Result Body Sit e COLONOSCOPY 11/02/2024 N/A Encounters Encounter Location Date Provider Diagnosis [facility] [place] [facility] [address] [place], [place] [phone] 01/28/2025 [address]quin [address] [facility] [address] [place] [address] 11/02/2024 Joaquin Day Constipation, unspecified constipation type K59.00 ; Left lower quadrant abdominal pain R10.32 ; Diverticulosis of colon K57.30 ; History of adenomatous polyp of colon Z86.010 ; Encounter for other preprocedural examination Z01.818 and Encounter for screening for malignant neoplasm of colon Z12.[address] [facility] [address] [place] [address] 11/02/2024 Joaquin Day Assessments Encounter Date Diagnosis [...] colonoscopy. Of note, we shall have a lead medical technologist present on the day of the procedure [...] colonoscopy. Of note, we shall have a lead medical technologist present on the day of the procedure [...] colonoscopy. Of note, we shall have a lead medical technologist present on the day of the procedure [...] colonoscopy. Of note, we shall have a lead medical technologist present on the day of the procedure for further discussion with Iva as well. Iva and his family seemed comfortable with this plan. Thank you again for allowing me to participate in Iva's care. I shall continue to keep you advised of his progress. 11/02/2024 Encounter for other preprocedural examination (ICD-10 - Z01.818) Overall, vIa is not having any particularly new or [...] colonoscopy. Of note, we shall have a lead medical technologist present on the day of the procedure [...] colonoscopy. Of note, we shall have a lead medical technologist present on the day of the procedure [...] Insured Coverage Start Date Coverage End Date [facility] [address] Attn Claims [place] [id number] IVA HUNTER Self - patient is the insured Medical (General) History Medical History History ICD Code Denies UT,CVA,renal disease Asthma/COPD Colonoscopy 12/2014 with small tubular [...]
--- OUTSIDE RECORDS SUMMARY | 2025-04-05 09:24 | XMS_ITS | Clinical Summary ---
Author Organization [facility] [address] [facility] Address [address] [place] [address] Phone Care Team Providers Care Service Worker Helper Name Role Phone Yulia Montoya MD Primary Care Provider [phone] Medical History Medical History Date Comments Arthritis [...] patient's age to complete this topic Insurance [facility] Member Subscriber Plan / Payer (Ef fective 2023-Present) Name:Owen Garg Relation to Subscriber:Self Name:Owen Garg Payer ID:[id number] Group ID:[id number] Type:Not on file Address: [place] [address] [address] [id number] Care Teams Service Worker Helper Relationship Specialty Start Date End Date Yulia Montoya MD [address] [facility] , [address] [facility] D/B/A: Jazmine Mylesaticasa In Internal Medicine ANA Lucero PCP - General Internal Medicine 07/14/21
[2025-04-05 09:50] LABS: Hematocrit 43.2 % (42.0-52.0); Hemoglobin 13.9 g/dl (14.0-18.0); Imm Gran Abs Auto 0.06 X10*3/uL (0.00-0.03); Imm Gran Pct Auto 0.5 % (0.0-0.4); Lymphocytes Absolute Auto 3.9 X10*3/uL (1.2-4.9); Mean Corpuscular HGB Conc 32.2 g/dl (31.0-36.0); Mean Corpuscular Hemoglobin 29.5 pg (27.0-33.0); Mean Corpuscular Volume 91.7 fL (80.0-98.0); NRBC Abs Auto 0.000 X10*3/uL (0.0-0.012); NRBC Pct Auto 0.0 /100WBC (0.0-0.2); Platelet Count 265 X10*3/uL (160-400); Red Blood Count 4.71 X10*6/uL (4.60-5.80); White Blood Count 11.1 X10*3/uL (4.8-10.8)
[2025-04-05 10:34] LABS: Alanine Aminotransferase 23 U/L (0-40); Albumin Level 4.8 g/dL (3.5-5.0); Alkaline Phosphatase 99 U/L (39-117); Anion Gap 11 (12-20); Aspartate Amino Transferase 22 U/L (5-37); Blood Urea Nitrogen 16 mg/dL (9-16); Calcium 9.3 mg/dL (8.4-10.2); Carbon Dioxide 28 mmol/L (22-29); Chloride 105 mmol/L (96-108); Cholesterol 257 mg/dL (<200); Estimated Glomerular Filt Rate > 60; HDL Cholesterol 32 mg/dL (>40); Iron 96 mcg/dL (45-160); Percent Iron Saturation 32 % (15-50); Potassium 4.0 mmol/L (3.3-5.1); Sodium 140 mmol/L (135-145); Total Iron Binding Capacity 303 mcg/dL (228-428); Total Protein 7.5 g/dL (6.5-8.0); Triglycerides 241 mg/dL (<150); Unsaturated Iron Binding 207 ug/dL
[2025-04-05 11:04] LABS: Microalbum/Creatinine Ratio Ur 6.8 ug/mg cr (<30)
[2025-04-05 11:06] LABS: Folate 12.7 ng/mL (> or = 4.0); Vitamin B12 411 pg/mL (200-900)
== END 2025-04-05 09:01 | disposition home or self-care (01) ==
LOC: HO.LAB 09:00
PROVIDERS: PCP Internal Medicine; Visit Provider Internal Medicine
DX: E11.9 Type 2 diabetes mellitus without complications (principal); E53.8 Deficiency of other specified B group vitamins; D64.9 Anemia, unspecified; E78.5 Hyperlipidemia, unspecified; E55.9 Vitamin D deficiency, unspecified; R80.9 Proteinuria, unspecified
CPT/HCPCS: 36415; 80053; 80061; 82043; 82306; 82570; 82607; 82746; 83540; 85025

== ENCOUNTER → 2025-04-11 11:08 | Outpatient (BNVA) | payer OTHER, SELFPAY | PROVIDERS: PCP Internal Medicine | DX: I10 Essential (primary) hypertension (principal); Z72.0 Tobacco use | CPT/HCPCS: 99211 ==